=== PATIENT | male | born 1940 | race Caucasian/White ===

== ENCOUNTER 2016-03-10 11:16 | Inpatient (IN) | payer OTHER, MEDICARE ==
[2016-03-10 11:26] VITALS: BMI 31.3
[2016-03-10] MEDS ORDERED: SODIUM CHLORIDE 1,000 ML IV STA ×2 (11:54→16:51)
[2016-03-10] MEDS ORDERED: AZITHROMYCIN IVPB 500 MG in DEXTROSE 5%-WATER - 250 ML IVPB ONE (11:58)
--- NOTE | 2016-03-10 12:06 | PDOC ---
History of Present Illness - General Chief Complaint: Shortness of Breath Stated Complaint: TREMORS Time Seen by Provider: 03/10/16 11:42 History Source: Patient, Spouse - History of Present Illness Timing/Duration: reports: this morning Severity: reports: severe Associated Symptoms: reports: cough, shortness of breath. denies: fever/chills , headache, muscle aches, wheezing Past History - Past Medical History Allergies/Adverse Reactions: Allergies Allergy/AdvReac Type Severity Reaction Status Date / Time No Known Allergies Allergy Verified 03/10/16 11:21 Home Medications: Ambulatory Orders Clonazepam [Klonopin -] 0.5 mg PO DAILY 03/20/14 Insulin NPL/Insulin Lispro [Humalog Mix 75-25 Kwikpen] 30 unit SQ BID 03/20/14 Amlodipine Besylate [Norvasc -] 5 mg PO DAILY 08/16/15 Imipramine HCl [Tofranil -] 75 mg PO HS 08/16/15 Insulin Detemir [Levemir Flextouch] 20 unit SQ BID 08/16/15 Levothyroxine [Synthroid -] 50 mcg PO DAILY 08/16/15 Metformin HCl 500 mg PO BID 08/16/15 Cancer: No Diabetes: Yes HTN: Yes Psychiatric Problems: Yes (ANXIETY, PANIC ATTACKS.) Thyroid Disease: Yes - Surgical History Abdominal Surgery: Yes Cholecystectomy: Yes Orthopedic Surgery: No - Immunization History Immunization Up to Date: Yes - Psycho/Social/Smoking Cessation Hx Anxiety: No Suicidal Ideation: No Smoking History: Never smoked Have you smoked in the past 12 months: No If you are a former smoker, when did you quit?: 1985 Cigars Per Day: 0 Information on smoking cessation initiated: No Hx Alcohol Use: No Drug/Substance Use Hx: No Substance Use Type: None Hx Substance Use Treatment: No Review of Systems - Review of Systems Constitutional: No: Fever Respiratory: Yes: Shortness of Breath. No: Cough, Wheezing Cardiac (ROS): No: Chest Pain ABD/GI: No: Constipated, Diarrhea, Nausea, Vomiting : No: Dysuria Neurological: No: Headache, Dizziness *Physical Exam - Vital Signs Last Vital Signs Temp Pulse Resp BP Pulse Ox 97.8 F 144 H 30 H 126/85 85 L 03/10/16 11:20 03/10/16 11:20 03/10/16 11:20 03/10/16 11:20 03/10/16 11:20 - Physical Exam Comments: 03/10/16 12:06 Pt tremulous in ED General Appearance: Yes: Appropriately Dressed HEENT: positive: Normal Voice Neck: positive: Supple Respiratory/Chest: positive: Lungs Clear, Normal Breath Sounds. negative: Wheezing Cardiovascular: positive: Regular Rate, S1, S2 Gastrointestinal/Abdominal: positive: Soft. negative: Tender Integumentary: positive: Dry, Warm Neurologic: positive: Fully Oriented, Alert, Normal Mood/Affect Heart Score/ECG Review - ECG Intrepretation Comment:: 03/10/16 13:48 Sinus tachycardia @ 117 bpm ED Treatment Course - LABORATORY CBC & Chemistry Diagram: 03/10/16 11:56 03/10/16 12:00 - RADIOLOGY Radiology Studies Ordered: Category Date Time Status CHEST X-RAY PORTABLE* [RAD] Stat Radiology 03/10/16 11:56 Ordered Medical Decision Making - Medical Decision Making 03/10/16 12:02 75 yo M, h/o pulmonary fibrosis, PNA, HTN, IDDM, schizophrenia, anxiety, bib for tremors and sob. reports that pt awoke in usual state of health this am but that while in the car this am, began having tremors and requested to be taken to the ED. Pt c/o chills now, denies sob, CP, cough, fevers, abd pain, change in BM or dysuria. See exam R/o sepsis Pt hypoxic, tachypneic, febrile and tachy in ED +tremors Rest of exam unremarkable -NV -tylenol -IVF -abx covering presumed PNA -labs/cardoza-cx/cxr -anticipate admission 03/10/16 13:09 03/10/16 13:11 Wbc of 16 w/ possible basilar infiltrate on CXR. case d/w Dr Gardner and pt admitted 03/10/16 13:30 Lactate 5.8, IVF and abx in progress, will rpt. Elevated LFTs on labs, will get US at this time 03/10/16 13:31 03/10/16 16:47 Rpt lactate 3.8. US w/ no GB, c/w cholecystectomy which pt had denied earlier, + fatty liver 03/10/16 16:52 *DC/Admit/Observation/Transfer Diagnosis at time of Disposition: Pneumonia Qualifiers: Pneumonia type: due to unspecified organism Laterality: unspecified laterality Lung location: unspecified part of lung Qualified Code(s): J18.9 - Pneumonia, unspecified organism - Discharge Dispostion Condition at time of disposition: Fair Admit: Yes - Referrals
[2016-03-10] MEDS ORDERED: ACETAMINOPHEN 325 MG TABLET (FP) PO ONE (12:07)
[2016-03-10 12:19] LABS: VENOUS BLOOD GAS HCO3 25.7 meq/L (22-29); VENOUS PH 7.34 (7.31-7.41)
[2016-03-10 12:22] LABS: BASOPHIL 0.5 % (0-2.0); EOSINOPHIL 0.3 % (0-4.5); MCH 32.3 pg (25.7-33.7); MCHC 33.4 g/dl (32.0-35.9); MEAN CELL VOLUME 96.6 fl (80-96); MEAN PLT VOLUME 8.7 fl (7.5-11.1); NEUTROPHILS 86.3 % (42.8-82.8); PLATELET COUNT 319 K/MM3 (134-434); RDW 13.6 % (11.9-15.9); WHITE BLOOD COUNT 16.8 K/mm3 (4.0-10.0)
[2016-03-10 12:35] LABS: INR 1.05 (0.82-1.09); PROTHROMBIN TIME (PATIENT) 11.6 SEC (9.98-11.88)
[2016-03-10 13:05] LABS: ALBUMIN 3.9 g/dl (3.4-5.0); ANION GAP 13 (8-16); BILIRUBIN,TOTAL 2.4 mg/dL (0.2-1.0); CALCIUM 9.5 mg/dL (8.5-10.1); CO2 24 mmol/L (21-32); CREATININE 1.3 mg/dL (0.7-1.3); GLUCOSE,RANDOM 226 mg/dL (74-106); SGPT/ALT 179 U/L (12-78); TOT PROT 7.7 g/dl (6.4-8.2)
[2016-03-10 13:07] LABS: ALK PHOS 164 U/L (45-117); TROPONIN I < 0.02 ng/ml (0.00-0.05)
[2016-03-10 13:15] LABS: SGOT/AST 284 U/L (15-37)
[2016-03-10 13:18] LABS: URINE APPEARANCE CLEAR; URINE BILIRUBIN NEGATIVE (NEGATIVE); URINE BLOOD NEGATIVE (NEGATIVE); URINE COLOR YELLOW; URINE GLUCOSE (UA) 1+ (NEGATIVE); URINE KETONE NEGATIVE (NEGATIVE); URINE LEUK ESTERASE NEGATIVE (NEGATIVE); URINE NITRITE NEGATIVE (NEGATIVE); URINE PROTEIN NEGATIVE (NEGATIVE); URINE UROBILINOGEN 2.0 E.U/dl E.U./dl (0.2-1.0)
[2016-03-10] MEDS ORDERED: ACETAMINOPHEN 325 MG TABLET (FP) ONE (13:19)
[2016-03-10] MEDS ORDERED: CEFTRIAXONE 50 ML ONE (13:19)
--- NOTE | 2016-03-10 13:44 | PDOC ---
*Physical Exam - Vital Signs Last Vital Signs Temp Pulse Resp BP Pulse Ox 97.8 F 112 H 22 145/74 85 L 03/10/16 11:20 03/10/16 11:56 03/10/16 11:56 03/10/16 11:56 03/10/16 11:20 Heart Score/ECG Review #1 ECG reviewed & interpreted by me at: 13:43 03/10/16 13:43 Twelve-lead EKG was performed and reviewed by me. There is normal sinus rhythm with a tachycardiac rate of 117bpm. The axis is normal. The intervals are abnormal - pr:208ms, QRS:90ms, QTc:404ms. There are no ST elevations or depressions. T waves nml ED Treatment Course - LABORATORY CBC & Chemistry Diagram: 03/10/16 11:56 03/10/16 12:00 - ADDITIONAL ORDERS Additional order review: Laboratory Results 03/10/16 03/10/16 03/10/16 12:00 11:56 11:56 INR PTT (Actin FS) VBG pH POC VBG pCO2 POC VBG pO2 Sodium 138 Cancelled Potassium 5.0 Cancelled Chloride 101 Cancelled Carbon Dioxide 24 Cancelled Anion Gap 13 Cancelled BUN 18 Cancelled Creatinine 1.3 Cancelled Creat Clearance w eGFR 53.96 Cancelled Random Glucose 226 H D Cancelled Lactic Acid 5.881 H* Calcium 9.5 Cancelled Total Bilirubin 2.4 H D Cancelled AST 284 H D Cancelled ALT 179 H D Cancelled Alkaline Phosphatase 164 H D Cancelled Creatine Kinase 88 Cancelled Troponin I < 0.02 Cancelled B-Natriuretic Peptide 129.36 H Total Protein 7.7 Cancelled Albumin 3.9 Cancelled Urine Color Urine Appearance Urine pH Ur Specific [place] Urine Protein Urine Glucose (UA) Urine Ketones Urine Blood Urine Nitrite Urine Bilirubin Urine Urobilinogen Ur Leukocyte Esterase 03/10/16 03/10/16 03/10/16 11:56 11:56 11:56 INR 1.05 PTT (Actin FS) 31.0 VBG pH 7.34 D POC VBG pCO2 48.8 D POC VBG pO2 13.7 L* D Sodium Potassium Chloride Carbon Dioxide Anion Gap BUN Creatinine Creat Clearance w eGFR Random Glucose Lactic Acid Calcium Total Bilirubin AST ALT Alkaline Phosphatase Creatine Kinase Troponin I B-Natriuretic Peptide Total Protein Albumin Urine Color Yellow Urine Appearance Clear Urine pH 6.0 Ur Specific [place] 1.013 Urine Protein Negative Urine Glucose (UA) 1+ H Urine Ketones Negative Urine Blood Negative Urine Nitrite Negative Urine Bilirubin Negative Urine Urobilinogen 2.0 e.u/dl Ur Leukocyte Esterase Negative 03/10/16 11:56 RBC 4.50 MCV 96.6 H MCHC 33.4 RDW 13.6 MPV 8.7 Neutrophils % 86.3 H Lymphocytes % 10.7 D Monocytes % 2.2 L Eosinophils % 0.3 D Basophils % 0.5 - Medications Given in the ED: ED Medications Discontinued Medications Generic Name Dose Route Start Last Admin Trade Name Freq PRN Reason Stop Dose Admin Acetaminophen 650 mg 03/10/16 12:07 03/10/16 13:16 Tylenol - PO 03/10/16 12:08 650 mg ONCE ONE Administration Ceftriaxone Sodium 1 mg 03/10/16 11:57 03/10/16 13:16 Rocephin - IVPUSH 03/10/16 11:58 1 mg ONCE ONE Administration Sodium Chloride 1,000 mls @ 1,000 mls/hr 03/10/16 11:54 03/10/16 13:16 Normal Saline - IV 03/10/16 12:53 1,000 mls/hr ASDIR STA Administration Medical Decision Making - Medical Decision Making 03/10/16 13:42 Pt seen by Midlevel Provider under my direct supervision Pt interviewed and examined Ancillary studies reviewed I agree with plan as outlined by Midlevel Provider 03/10/16 13:44 *DC/Admit/Observation/Transfer Diagnosis at time of Disposition: Pneumonia Qualifiers: Pneumonia type: due to unspecified organism Laterality: unspecified laterality Lung location: unspecified part of lung Qualified Code(s): J18.9 - Pneumonia, unspecified organism - Discharge Dispostion Condition at time of disposition: Fair
[2016-03-10] MEDS ORDERED: AZITHROMYCIN IVPB 250 ML IVPB ONE (14:57)
--- NOTE | 2016-03-10 16:38 | EKG ---
Test Reason : Blood Pressure : / mmHG Vent. Rate : 117 BPM Atrial Rate : 117 BPM P-R Int : 208 ms QRS Dur : 090 ms QT Int : 290 ms P-R-T Axes : 027 009 018 degrees QTc Int : 404 ms SINUS TACHYCARDIA WITH 1ST DEGREE A-V BLOCK POSSIBLE ATRIAL TACHYCARDIA OTHERWISE NORMAL ECG WHEN COMPARED WITH ECG OF 28-NOV-2015 15:16, NO SIGNIFICANT CHANGE WAS FOUND Confirmed by MD CORDELL, CAMERON ([id number]) on 03/10/2016 4:37:40 PM Referred By: Overread By: CAMERON LANDA MD
[2016-03-10] MEDS: IMIPRAMINE HCL 50 MG PO SCH (22:19)
[2016-03-10] MEDS: clonazePAM 0.5 MG TABLET PO SCH (22:20)
[2016-03-11] MEDS: LEVOTHYROXINE NA 50 MCG TABLET (FP) PO SCH (06:50)
[2016-03-11] MEDS ORDERED: INSULIN (NOVOLOG) ASPART 100 UNITS/ML 10ML VIAL ONE ×2 (06:53→17:08)
[2016-03-11] MEDS: INSULIN SLIDING SCALE (NOVOLOG) 1 VIAL SQ SCH ×2 (06:54→17:21)
[2016-03-11 07:20] LABS: BASOPHIL 0.4 % (0-2.0); EOSINOPHIL 1.1 % (0-4.5); MCHC 34.4 g/dl (32.0-35.9); MEAN CELL VOLUME 95.8 fl (80-96); MEAN PLT VOLUME 8.9 fl (7.5-11.1); NEUTROPHILS 72.7 % (42.8-82.8); PLATELET COUNT 228 K/MM3 (134-434); RDW 13.4 % (11.9-15.9); WHITE BLOOD COUNT 12.9 K/mm3 (4.0-10.0)
[2016-03-11 07:52] LABS: ANION GAP 8 (8-16); CALCIUM 8.2 mg/dL (8.5-10.1); CO2 26 mmol/L (21-32); GLUCOSE,RANDOM 154 mg/dL (74-106); SGOT/AST 132 U/L (15-37); SGPT/ALT 169 U/L (12-78)
[2016-03-11 08:01] LABS: ALK PHOS 116 U/L (45-117); BILIRUBIN,TOTAL 6.6 mg/dL (0.2-1.0); THYROID STIMULATING HORMONE 2.42 uIU/ml (0.358-3.74); TOT PROT 5.9 g/dl (6.4-8.2)
--- NOTE | 2016-03-11 08:55 | PN ---
Progress Note, Physician Chief Complaint: ID Full note dictated and discussed with Dr Barajas Brought with SOB hypoxemia says he had abd pain better today No fever but now with GNB in the blood cultures already ! - Current Medication List Current Medications: Active Medications Amlodipine Besylate (Norvasc -) 5 mg PO DAILY [facility] Clonazepam (Klonopin -) 0.5 mg PO HS [facility] Last Admin: 03/10/16 22:20 Dose: 0.5 mg Levofloxacin (Levaquin 500 Mg Premixed Ivpb -) 100 mls @ 100 mls/hr IVPB DAILY [facility] Imipramine HCl (Tofranil -) 75 mg PO HS [facility] Last Admin: 03/10/16 22:19 Dose: 75 mg Insulin Aspart (Novolog Vial Sliding Scale -) 1 vial SQ BIDAC [facility] PRN Reason: Protocol Last Admin: 03/11/16 06:54 Dose: 6 units Levothyroxine Sodium (Synthroid -) 50 mcg PO DAILY@0700 [facility] Last Admin: 03/11/16 06:50 Dose: 50 mcg - Objective Vital Signs: Vital Signs Temperature 98.5 F 03/11/16 05:30 Pulse Rate 83 03/11/16 05:30 Respiratory Rate 18 03/11/16 05:30 Blood Pressure 99/49 03/11/16 05:30 O2 Sat by Pulse Oximetry (%) 96 03/10/16 21:00 Constitutional: Yes: Mild Distress HENT: Yes: WNL, Atraumatic Neck: Yes: WNL, Supple Cardiovascular: Yes: Regular Rate and Rhythm, S1, S2. No: Murmur Respiratory: Yes: Rales, Rhonchi Gastrointestinal: Yes: Soft. No: Splenomegaly, Tenderness, Tenderness, Rebound Edema: Yes Labs: CBC, BMP 03/11/16 05:50 03/11/16 05:50 INR, PTT INR 1.05 (0.82-1.09) 03/10/16 11:56 Assessment/Plan Microbiology 03/10/16 11:56 Blood - Peripheral Venous Blood Culture - Preliminary Pending Organism 03/10/16 11:56 Blood - Peripheral Venous Blood Culture - Preliminary Pending Organism Laboratory Tests 03/10/16 03/10/16 03/11/16 11:56 11:56 05:50 WBC 16.8 H 12.9 H Hgb 14.5 12.4 D Plt Count 319 228 D Neutrophils % 86.3 H Lymphocytes % 10.7 D Monocytes % 2.2 L Eosinophils % 0.3 D Basophils % 0.5 BUN Creatinine Creat Clearance w eGFR Lactic Acid 5.881 H* Total Bilirubin AST ALT Alkaline Phosphatase 03/11/16 05:50 WBC Hgb Plt Count Neutrophils % Lymphocytes % Monocytes % Eosinophils % Basophils % BUN 18 Creatinine 1.0 D Creat Clearance w eGFR > 60 Lactic Acid Total Bilirubin 6.6 H D AST 132 H D ALT 169 H Alkaline Phosphatase 116 D Assessment Sepsis syndrome Gram negative ale bacteremia biliary source Component of Congestive heart failure Recurrent cholangitis Plan Pending blood cultures would treat for biliary tract source with Zosyn GI to reconsult ECHO Ronald Townsend MD
--- NOTE | 2016-03-11 08:59 | PN ---
Progress Note, Physician - Current Medication List Current Medications: Active Medications Amlodipine Besylate (Norvasc -) 5 mg PO DAILY [facility] Clonazepam (Klonopin -) 0.5 mg PO HS [facility] Last Admin: 03/10/16 22:20 Dose: 0.5 mg Piperacillin Sod/Tazobactam (Sod 4.5 gm/ Dextrose) 100 mls @ 200 mls/hr IVPB Q8H-IV [facility] Imipramine HCl (Tofranil -) 75 mg PO HS [facility] Last Admin: 03/10/16 22:19 Dose: 75 mg Insulin Aspart (Novolog Vial Sliding Scale -) 1 vial SQ BIDAC [facility] PRN Reason: Protocol Last Admin: 03/11/16 06:54 Dose: 6 units Levothyroxine Sodium (Synthroid -) 50 mcg PO DAILY@0700 [facility] Last Admin: 03/11/16 06:50 Dose: 50 mcg - Objective Vital Signs: Vital Signs Temperature 98.5 F 03/11/16 05:30 Pulse Rate 83 03/11/16 05:30 Respiratory Rate 18 03/11/16 05:30 Blood Pressure 99/49 03/11/16 05:30 O2 Sat by Pulse Oximetry (%) 96 03/10/16 21:00 Labs: CBC, BMP 03/11/16 05:50 03/11/16 05:50 INR, PTT INR 1.05 (0.82-1.09) 03/10/16 11:56 Problem List - Problems (1) Ascending cholangitis Code(s): K83.0 - CHOLANGITIS (2) Gram-negative bacteremia Code(s): R78.81 - BACTEREMIA (3) Sepsis Code(s): A41.9 - SEPSIS, UNSPECIFIED ORGANISM
[2016-03-11] MEDS: amLODIPine BESYLATE 5 MG TABLET (FP) PO SCH (10:58)
[2016-03-11 11:49] LABS: C-REACTIVE PROTEIN 8.5 MG/DL (0.00-0.3)
[2016-03-11] MEDS: PIPERACILLIN/TAZOB 4.5 GM 100 ML IVPB SCH ×3 (14:51→18:14)
--- NOTE | 2016-03-11 16:50 | HP ---
Admitting History and Physical - Primary Care Physician PCP: Eduardo Galdamez D - Admission Chief Complaint: Shaking chills. RUQ pain History of Present Illness: 75 y/o male who on the day of admission felt shaking chill followed by RUQ pain. Denies N/V , fever. Came to ED and w/u showed leukocytosis of 16,000 , with elevated LFTs. He is known to have interstitial lung disease and the Chest Xray showed lower lobe infiltrates but patient did not have any cough or sputum. In the past he has been admitted several times with bacteremia due to ascending cholangitis as his CBD is implanted in the duodenum after cholecystectomy and injury to CBD. History Source: Patient, Family Member Limitations to Obtaining History: No Limitations - Past Medical History Cardiovascular: Yes: HTN. No: Other Pulmonary: Yes: Pneumonia, Pulmonary Fibrosis Gastrointestinal: Yes: Gastritis, Other (Several episodes ascending cholangitis with septicemia. Had laceration of CBD during cholecystectomy and it was implanted in the duodenum) Hepatobiliary: Yes: Other (fatty liver) Psych: Yes: Anxiety, Depression. No: Bipolar, Panic, Psychosis, Schizophrenia, Other Endocrine: Yes: Diabetes Mellitus, Hypothyroidism. No: Macario's Disease, [place]'s Disease, Diabetes Insipidus, Hyperparathyroidism, Hyperthyroidism, Osteopenia, SIADH, Other - Past Surgical History Past Surgical History: Yes: Cholecystectomy - Smoking History Smoking history: Never smoked Have you smoked in the past 12 months: No If you are a former smoker, when did you quit?: 1985 - Alcohol/Substance Use Hx Alcohol Use: No History of Substance Use: reports: None - Social History History of Recent Travel: No Home Medications - Allergies Allergies/Adverse Reactions: Allergies Allergy/AdvReac Type Severity Reaction Status Date / Time No Known Allergies Allergy Verified 03/10/16 11:21 - Home Medications Home Medications: Ambulatory Orders Clonazepam [Klonopin -] 0.5 mg PO DAILY 03/20/14 Insulin NPL/Insulin Lispro [Humalog Mix 75-25 Kwikpen] 30 unit SQ BID 03/20/14 Amlodipine Besylate [Norvasc -] 5 mg PO DAILY 08/16/15 Imipramine HCl [Tofranil -] 75 mg PO HS 08/16/15 Insulin Detemir [Levemir Flextouch] 20 unit SQ BID 08/16/15 Levothyroxine [Synthroid -] 50 mcg PO DAILY 08/16/15 Metformin HCl 500 mg PO BID 08/16/15 Review of Systems - Review of Systems Constitutional: reports: Chills Eyes: reports: No Symptoms HENT: reports: No Symptoms Neck: reports: No Symptoms Cardiovascular: denies: No Symptoms, Chest Pain, Edema, Palpitations, Shortness of Breath, Other Respiratory: denies: No Symptoms, Cough, Exercise Intolerance, Hemoptysis, Orthopnea, PND, Snoring, SOB, SOB on Exertion, Wheezing, Other Gastrointestinal: reports: Abdominal Pain Genitourinary: reports: No Symptoms Breasts: reports: No Symptoms Reported Musculoskeletal: reports: No Symptoms Integumentary: reports: No Symptoms Endocrine: reports: No Symptoms Hematology/Lymphatic: reports: No Symptoms Psychiatric: reports: Anxiety, Depression Physical Examination Vital Signs: Vital Signs Temperature 97.7 F 03/11/16 15:13 Pulse Rate 89 03/11/16 15:13 Respiratory Rate 18 03/11/16 15:13 Blood Pressure 122/77 03/11/16 15:13 O2 Sat by Pulse Oximetry (%) 97 03/11/16 09:00 Constitutional: Yes: No Distress, Calm, Obese Eyes: Yes: Conjunctiva Clear, EOM Intact HENT: Yes: Atraumatic, Normocephalic Neck: Yes: Supple, Trachea Midline Cardiovascular: Yes: Regular Rate and Rhythm, S1, S2 Respiratory: Yes: WNL, Regular, CTA Bilaterally Gastrointestinal: Yes: WNL, Normal Bowel Sounds, Soft Labs: CBC, BMP 03/11/16 05:50 03/11/16 05:50 Imaging - Results Chest X-ray: Report Reviewed, Image Reviewed Problem List - Problems (1) Diabetes Assessment/Plan: Diabetes under good control with insulin Code(s): E11.9 - TYPE 2 DIABETES MELLITUS WITHOUT COMPLICATIONS Qualifiers: Diabetes mellitus supervisor intermediates insulin use: with supervisor intermediates use (2) Elevated LFTs Assessment/Plan: Abnormal elevation of LFTs due to ascending cholangitis Code(s): R79.89 - OTHER SPECIFIED ABNORMAL FINDINGS OF BLOOD CHEMISTRY (3) Obesity Code(s): E66.9 - OBESITY, UNSPECIFIED (4) Pneumonia Assessment/Plan: Xray report shows possibility of new infiltrates and possible Pneumonia Code(s): J18.9 - PNEUMONIA, UNSPECIFIED ORGANISM Qualifiers: Pneumonia type: due to unspecified organism Laterality: unspecified laterality Lung location: unspecified part of lung Qualified Code(s) : J18.9 - Pneumonia, unspecified organism (5) Schizophrenia in remission Assessment/Plan: In remission with imipramine and Clonazepam Code(s): F20.9 - SCHIZOPHRENIA, UNSPECIFIED Assessment/Plan Was treated with Rocephin and Zithromax and remained afebrile and leukocytosis improved to 12,000. Blood cult are positive with gram+ bacteria, consulted who started pt on Zosyn
[2016-03-11] MEDS ORDERED: LEVOFLOXACIN 500 MG IVPB 100 ML IVPB SCH (20:10)
[2016-03-11] MEDS ORDERED: PT OWN MED DRAWER 7, Y5N ONE (21:01)
[2016-03-11] MEDS: clonazePAM 0.5 MG TABLET PO SCH (21:22)
[2016-03-11] MEDS: IMIPRAMINE HCL 50 MG PO SCH (21:23)
[2016-03-12] MEDS: PIPERACILLIN/TAZOB 4.5 GM 100 ML IVPB SCH ×3 (02:02→17:26)
[2016-03-12] MEDS ORDERED: INSULIN (NOVOLOG) ASPART 100 UNITS/ML 10ML VIAL ONE ×2 (06:00→17:19)
[2016-03-12] MEDS: INSULIN SLIDING SCALE (NOVOLOG) 1 VIAL SQ SCH ×2 (06:02→17:26)
[2016-03-12] MEDS: LEVOTHYROXINE NA 50 MCG TABLET (FP) PO SCH (06:02)
[2016-03-12] MEDS: amLODIPine BESYLATE 5 MG TABLET (FP) PO SCH (09:38)
--- NOTE | 2016-03-12 10:01 | PN ---
Progress Note, Physician Chief Complaint: Looks feel better Afebrile Zosyn - Current Medication List Current Medications: Active Medications Amlodipine Besylate (Norvasc -) 5 mg PO DAILY [facility] Last Admin: 03/12/16 09:38 Dose: 5 mg Clonazepam (Klonopin -) 0.5 mg PO HS [facility] Last Admin: 03/11/16 21:22 Dose: 0.5 mg Piperacillin Sod/Tazobactam Sod (Zosyn 4.5gm Ivpb (Pre-Docked)) 100 mls @ 200 mls/hr IVPB Q8H-IV [facility] Last Admin: 03/12/16 09:38 Dose: 200 mls/hr Imipramine HCl (Tofranil -) 75 mg PO [facility] Insulin Aspart (Novolog Vial Sliding Scale -) 1 vial SQ BIDAC [facility] PRN Reason: Protocol Last Admin: 03/12/16 06:02 Dose: 6 units Levothyroxine Sodium (Synthroid -) 50 mcg PO DAILY@0700 [facility] Last Admin: 03/12/16 06:02 Dose: 50 mcg - Objective Vital Signs: Vital Signs Temperature 98.0 F 03/12/16 06:00 Pulse Rate 85 03/12/16 06:00 Respiratory Rate 20 03/12/16 06:00 Blood Pressure 131/70 03/12/16 06:00 O2 Sat by Pulse Oximetry (%) 97 03/11/16 21:00 Constitutional: Yes: Well Nourished, No Distress HENT: Yes: WNL, Atraumatic Neck: Yes: WNL, Supple Cardiovascular: Yes: Regular Rate and Rhythm, S1, S2 Respiratory: Yes: Rales Gastrointestinal: Yes: WNL, Normal Bowel Sounds, Soft. No: Tenderness Edema: Yes Labs: CBC, BMP 03/11/16 05:50 03/11/16 05:50 INR, PTT INR 1.05 (0.82-1.09) 03/10/16 11:56 Problem List - Problems (1) Ascending cholangitis Code(s): K83.0 - CHOLANGITIS (2) Gram-negative bacteremia Code(s): R78.81 - BACTEREMIA (3) Sepsis Code(s): A41.9 - SEPSIS, UNSPECIFIED ORGANISM Assessment/Plan Microbiology 03/10/16 12:40 Urine - Urine Clean Catch Urine Culture - Final NO GROWTH OBTAINED 03/10/16 11:56 Blood - Peripheral Venous Blood Culture - Preliminary Lactose Fermenting Neg Bacilli 03/10/16 11:56 Blood - Peripheral Venous Blood Culture - Preliminary Gram Negative Eddi Laboratory Tests 03/10/16 03/11/16 03/11/16 11:56 05:50 05:50 WBC 16.8 H 12.9 H Plt Count 228 D BUN 18 Creatinine 1.0 D Creat Clearance w eGFR > 60 Total Bilirubin 6.6 H D Alkaline Phosphatase 116 D Assessment Cholangitis Pneumonia vs CHF Grade 3 systolic murmum Elevated LFTs Plan Continue Zosyn as ordered ECHO pending Final c/s pending CT non contrast lung MRCP and GI evaluation Repeat LFT Cary ZAMORANO
[2016-03-12] MEDS ORDERED: PT OWN MED DRAWER 7, Y5N ONE (20:42)
--- NOTE | 2016-03-12 20:44 | PN ---
Progress Note, Physician History of Present Illness: Denies any abd. pain. No N/V. Ultrassound of liver is negative and shows only fatty liver. - Current Medication List Current Medications: Active Medications Amlodipine Besylate (Norvasc -) 5 mg PO DAILY [facility] Last Admin: 03/12/16 09:38 Dose: 5 mg Clonazepam (Klonopin -) 0.5 mg PO HS [facility] Last Admin: 03/11/16 21:22 Dose: 0.5 mg Piperacillin Sod/Tazobactam Sod (Zosyn 4.5gm Ivpb (Pre-Docked)) 100 mls @ 200 mls/hr IVPB Q8H-IV [facility] Last Admin: 03/12/16 17:26 Dose: 200 mls/hr Imipramine HCl (Tofranil -) 75 mg PO HS [facility] Insulin Aspart (Novolog Vial Sliding Scale -) 1 vial SQ BIDAC [facility] PRN Reason: Protocol Last Admin: 03/12/16 17:26 Dose: 10 units Levothyroxine Sodium (Synthroid -) 50 mcg PO DAILY@0700 [facility] Last Admin: 03/12/16 06:02 Dose: 50 mcg - Objective Vital Signs: Vital Signs Temperature 97.9 F 03/12/16 18:00 Pulse Rate 81 03/12/16 18:00 Respiratory Rate 18 03/12/16 18:00 Blood Pressure 118/60 03/12/16 18:00 O2 Sat by Pulse Oximetry (%) 97 03/11/16 21:00 Constitutional: Yes: Well Nourished, No Distress, Calm Eyes: Yes: WNL, Conjunctiva Clear, EOM Intact HENT: Yes: WNL Neck: Yes: Supple, Trachea Midline Cardiovascular: Yes: Regular Rate and Rhythm, S1, S2 Respiratory: Yes: Regular, CTA Bilaterally Gastrointestinal: Yes: Normal Bowel Sounds, Soft Genitourinary: Yes: WNL Musculoskeletal: Yes: WNL Extremities: Yes: WNL Edema: No Peripheral Pulses WNL: Yes Integumentary: Yes: WNL Neurological: Yes: Alert, Oriented, Cran Nerves II-XII Intact ...Motor Strength: WNL Psychiatric: Yes: Alert, Oriented Labs: CBC, BMP 03/11/16 05:50 03/11/16 05:50 INR, PTT INR 1.05 (0.82-1.09) 03/10/16 11:56 - ....Imaging X-ray: Report Reviewed, Image Reviewed Ultrasound: Report Reviewed EKG: Report Reviewed Problem List - Problems (1) Diabetes Code(s): E11.9 - TYPE 2 DIABETES MELLITUS WITHOUT COMPLICATIONS Qualifiers: Diabetes mellitus terminal superintendent insulin use: with correction use (2) Elevated LFTs Assessment/Plan: LFTs are improving as well as leukocytosis with Zosyn IV. Code(s): R79.89 - OTHER SPECIFIED ABNORMAL FINDINGS OF BLOOD CHEMISTRY (3) Obesity Code(s): E66.9 - OBESITY, UNSPECIFIED (4) Pneumonia Assessment/Plan: Chest Xray findings are due to Interstitial lung disease Code(s): J18.9 - PNEUMONIA, UNSPECIFIED ORGANISM Qualifiers: Pneumonia type: due to unspecified organism Laterality: unspecified laterality Lung location: unspecified part of lung Qualified Code(s) : J18.9 - Pneumonia, unspecified organism (5) Schizophrenia in remission Code(s): F20.9 - SCHIZOPHRENIA, UNSPECIFIED (6) Gram-negative bacteremia Assessment/Plan: Organism isolated so far is gram neg. lactose fermenting Code(s): R78.81 - BACTEREMIA Assessment/Plan Continue IV Zosyn. Echocardiogram was ordered
[2016-03-12] MEDS: clonazePAM 0.5 MG TABLET PO SCH (21:15)
[2016-03-12] MEDS: IMIPRAMINE HCL 25 MG TABLET PO SCH (21:15)
[2016-03-13] MEDS: PIPERACILLIN/TAZOB 4.5 GM 100 ML IVPB SCH ×2 (02:01→09:27)
[2016-03-13] MEDS ORDERED: INSULIN (NOVOLOG) ASPART 100 UNITS/ML 10ML VIAL ONE ×2 (06:00→16:47)
[2016-03-13] MEDS: INSULIN SLIDING SCALE (NOVOLOG) 1 VIAL SQ SCH ×2 (06:22→16:54)
[2016-03-13] MEDS: LEVOTHYROXINE NA 50 MCG TABLET (FP) PO SCH (06:22)
[2016-03-13 08:47] LABS: BASOPHIL 0.7 % (0-2.0); EOSINOPHIL 5.4 % (0-4.5); MCH 32.3 pg (25.7-33.7); MCHC 33.7 g/dl (32.0-35.9); MEAN CELL VOLUME 95.8 fl (80-96); MEAN PLT VOLUME 9.1 fl (7.5-11.1); NEUTROPHILS 56.3 % (42.8-82.8); PLATELET COUNT 280 K/MM3 (134-434); RDW 13.9 % (11.9-15.9); WHITE BLOOD COUNT 11.2 K/mm3 (4.0-10.0)
[2016-03-13] MEDS ORDERED: ACETAMINOPHEN 325 MG TABLET (FP) ONE (08:52)
[2016-03-13] MEDS ORDERED: ACETAMINOPHEN 325 MG TABLET (FP) PO PRN (08:57)
[2016-03-13] MEDS: amLODIPine BESYLATE 5 MG TABLET (FP) PO SCH (09:27)
[2016-03-13 09:35] LABS: ALBUMIN 3.8 g/dl (3.4-5.0); BILIRUBIN,TOTAL 2.6 mg/dL (0.2-1.0); CREATININE 1.2 mg/dL (0.7-1.3); TOT PROT 7.3 g/dl (6.4-8.2)
--- NOTE | 2016-03-13 10:18 | PN ---
Progress Note, Physician Chief Complaint: Febrile today 101 ! On Zosyn Denies abd pain - Current Medication List Current Medications: Active Medications Acetaminophen (Tylenol -) 325 mg PO Q4H PRN PRN Reason: FEVER OR PAIN Last Admin: 03/13/16 09:00 Dose: 325 mg Amlodipine Besylate (Norvasc -) 5 mg PO DAILY [facility] Last Admin: 03/13/16 09:27 Dose: 5 mg Clonazepam (Klonopin -) 0.5 mg PO HS [facility] Last Admin: 03/12/16 21:15 Dose: 0.5 mg Piperacillin Sod/Tazobactam Sod (Zosyn 4.5gm Ivpb (Pre-Docked)) 100 mls @ 200 mls/hr IVPB Q8H-IV [facility] Last Admin: 03/13/16 09:27 Dose: 200 mls/hr Imipramine HCl (Tofranil -) 75 mg PO HS [facility] Last Admin: 03/12/16 21:15 Dose: 75 mg Insulin Aspart (Novolog Vial Sliding Scale -) 1 vial SQ BIDAC [facility] PRN Reason: Protocol Last Admin: 03/13/16 06:22 Dose: 6 units Levothyroxine Sodium (Synthroid -) 50 mcg PO DAILY@0700 [facility] Last Admin: 03/13/16 06:22 Dose: 50 mcg - Objective Vital Signs: Vital Signs Temperature 98.0 F 03/13/16 02:00 Pulse Rate 86 03/13/16 02:00 Respiratory Rate 20 03/13/16 02:00 Blood Pressure 122/71 03/13/16 02:00 O2 Sat by Pulse Oximetry (%) 96 03/12/16 21:00 Constitutional: Yes: Other (Ill appearing) HENT: Yes: WNL, Atraumatic Neck: Yes: WNL, Supple Cardiovascular: Yes: Regular Rate and Rhythm, Murmur, S1, S2 Respiratory: Yes: WNL, Regular, CTA Bilaterally Gastrointestinal: Yes: WNL, Normal Bowel Sounds Edema: No Labs: CBC, BMP 03/13/16 07:20 03/13/16 09:15 INR, PTT INR 1.05 (0.82-1.09) 03/10/16 11:56 Problem List - Problems (1) Ascending cholangitis Code(s): K83.0 - CHOLANGITIS (2) Gram-negative bacteremia Code(s): R78.81 - BACTEREMIA (3) Sepsis Code(s): A41.9 - SEPSIS, UNSPECIFIED ORGANISM Assessment/Plan Laboratory Tests 03/10/16 03/10/16 03/10/16 11:56 12:00 15:40 WBC Hgb Hct Plt Count BUN Creatinine Creat Clearance w eGFR Lactic Acid 5.881 H* 3.824 H* Total Bilirubin 2.4 H D AST 284 H D ALT 179 H D Alkaline Phosphatase 164 H D 03/11/16 03/13/16 03/13/16 05:50 07:20 09:15 WBC 11.2 H Hgb 14.0 D Hct 41.5 D Plt Count 280 D BUN 19 H Creatinine 1.2 Creat Clearance w eGFR 59.18 Lactic Acid Total Bilirubin 6.6 H D AST 132 H D ALT 169 H Alkaline Phosphatase 116 D 150 H D Microbiology 03/10/16 12:40 Urine - Urine Clean Catch Urine Culture - Final NO GROWTH OBTAINED 03/10/16 11:56 Blood - Peripheral Venous Blood Culture - Final Escherichia Coli 03/10/16 11:56 Blood - Peripheral Venous Blood Culture - Final Escherichia Coli Assessment Interesting case in which patient presented couph and SOB NO mention of abd pain in the ER LFTs noted to be elevated Bili of 6 ! Patient has no abdominal findings but has E Coli in the blood cultures. HIS ultrasound shows fatty liver but no dilatation of CBD and he no abd pain on exam. CT of the chest shows estensive infiltrate. Raises the question of a primary E Coli pneumonia with worsening liver enzymes based on a fatty liver. HIs LFTs improving but still elevated and bilary source of infection still needs to be considered. Plan Get GI to see today Legionella serology Repeat blood culture now for fever recurrent ! CRP ECHO ordered for murmur E Coli sensitive to everything does not warrant Zosyn Ceftriaxone 2 grs instead REX Townsend MD
[2016-03-13 11:04] LABS: C-REACTIVE PROTEIN 6.6 MG/DL (0.00-0.3)
[2016-03-13] MEDS: CEFTRIAXONE 100 ML IVPB SCH (12:14)
--- NOTE | 2016-03-13 16:13 | CONSULT ---
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 No: Other Pulmonary: Yes: Pneumonia, Pulmonary Fibrosis Gastrointestinal: Yes: Gastritis, Other (COMPLICATIONS FROM GB SURGERY (BILE DUCT INJURY) PROBABLE BILE DUCT SURGERY) Hepatobiliary: Yes: Other (fatty liver, BACK CIRRHOSIS) Psych: Yes: Anxiety, Depression. No: Bipolar, Panic, Psychosis, Schizophrenia, Other Endocrine: Yes: Diabetes Mellitus, Hypothyroidism. No: Sherburne's Disease, Siri's Disease, Diabetes Insipidus, Hyperparathyroidism, Hyperthyroidism, Osteopenia, SIADH, Other - Past Surgical History Past Surgical History: Yes: Cholecystectomy Additional Surgical History: ABOVE, EGD REVEALED ESOPHAGITIS AND HIATAL HERNIA, COLONOSCOPY NEGATIVE FOR MALIGNANCY - Alcohol/Substance Use Hx Alcohol Use: No History of Substance Use: reports: None - Smoking History Smoking history: Never smoked Have you smoked in the past 12 months: No If you are a former smoker, when did you quit?: 1985 - Social History History of Recent Travel: No Home Medications - Allergies Allergies/Adverse Reactions: Allergies Allergy/AdvReac Type Severity Reaction Status Date / Time No Known Allergies Allergy Verified 03/10/16 11:21 - Home Medications Home Medications: Ambulatory Orders Clonazepam [Klonopin -] 0.5 mg PO DAILY 03/20/14 Insulin NPL/Insulin Lispro [Humalog Mix 75-25 Kwikpen] 30 unit SQ BID 03/20/14 Amlodipine Besylate [Norvasc -] 5 mg PO DAILY 08/16/15 Imipramine HCl [Tofranil -] 75 mg PO HS 08/16/15 Insulin Detemir [Levemir Flextouch] 20 unit SQ BID 08/16/15 Levothyroxine [Synthroid -] 50 mcg PO DAILY 08/16/15 Metformin HCl 500 mg PO BID 08/16/15 Family Disease History - Family Disease History Family History: Unable to Obtain Review of Systems - Review of Systems Constitutional: reports: Chills, Fever Eyes: reports: No Symptoms HENT: reports: No Symptoms Neck: reports: No Symptoms Cardiovascular: reports: No Symptoms Respiratory: reports: No Symptoms Gastrointestinal: reports: Indigestion Genitourinary: reports: No Symptoms Musculoskeletal: reports: No Symptoms Integumentary: reports: No Symptoms Neurological: reports: No Symptoms Endocrine: reports: No Symptoms Physical Exam-GI Vital Signs: Vital Signs Temperature 97.8 F 03/13/16 14:51 Pulse Rate 82 03/13/16 14:51 Respiratory Rate 22 03/13/16 14:51 Blood Pressure 121/60 03/13/16 14:51 O2 Sat by Pulse Oximetry (%) 97 03/13/16 09:00 Constitutional: Yes: No Distress, Calm Eyes: Yes: Other (VERY MILD SCLERAL ICTERUS) Neck: Yes: Supple Cardiovascular: Yes: Regular Rate and Rhythm Respiratory: Yes: Regular Gastrointestinal Inspection: Yes: Scars ...Auscultate: Yes: Normoactive Bowel Sounds ...Palpate: Yes: Soft Extremities: Yes: WNL Labs: CBC, BMP 03/13/16 07:20 03/13/16 09:15 INR, PTT INR 1.05 (0.82-1.09) 03/10/16 11:56 Laboratory Tests 03/10/16 03/13/16 03/13/16 11:56 07:20 09:15 WBC 11.2 H RBC 4.33 Hgb 14.0 D Hct 41.5 D MCV 95.8 MCHC 33.7 RDW 13.9 Plt Count 280 D MPV 9.1 Neutrophils % 56.3 D Lymphocytes % 30.9 D Monocytes % 6.7 Eosinophils % 5.4 H D Basophils % 0.7 INR 1.05 Total Bilirubin 2.6 H D AST 67 H D ALT 139 H Alkaline Phosphatase 150 H D C-Reactive Protein 6.6 H D Problem List - Problems (1) Gram-negative bacteremia Assessment/Plan: SUSPECT THAT THE GM NEG (E COLI) SOURCE IS FORM BILIARY TREE. THERE WAS SUSPECTED STRICTURE IN 2014 SEEN ON MRI BUT PER CHART THERE WAS NO ERCP PERFORMED. HE DOES NOT KNOW IF HE HAD ERCP AFTER THAT. WILL ORDER MRCP WITH SOME PREMRI SEDATION WITH VALIUM. IF STRICTURE SUSPECTED PRIOR SURGICAL ALTERATION OF ANATOMY MAY REQUIRE ERCP AT ANOTHER LOCATION. IN THE MEANTIME CONTINUE ABX TO TRY TO CLEAR INFECTION. 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
--- NOTE | 2016-03-13 21:15 | PN ---
Progress Note, Physician History of Present Illness: Continues to be afebrile. No N/V. Cholecystectomy was done in 1989 with injury to CBD. Since then has had many episodes of Bacteremia with ECOLI. During last episode did EGD with duodenoscopy and could not find the opening of the implanted CBD. - Current Medication List Current Medications: Active Medications Acetaminophen (Tylenol -) 325 mg PO Q4H PRN PRN Reason: FEVER OR PAIN Last Admin: 03/13/16 09:00 Dose: 325 mg Amlodipine Besylate (Norvasc -) 5 mg PO DAILY [facility] Last Admin: 03/13/16 09:27 Dose: 5 mg Clonazepam (Klonopin -) 0.5 mg PO HS [facility] Last Admin: 03/12/16 21:15 Dose: 0.5 mg Diazepam (Valium -) 5 mg PO ONCE ONE Stop: 03/13/16 16:25 Ceftriaxone Sodium (Rocephin 2gm Ivpb (Pre-Docked)) 100 mls @ 200 mls/hr IVPB DAILY [facility] Last Admin: 03/13/16 12:14 Dose: 200 mls/hr Imipramine HCl (Tofranil -) 75 mg PO HS [facility] Last Admin: 03/12/16 21:15 Dose: 75 mg Insulin Aspart (Novolog Vial Sliding Scale -) 1 vial SQ BIDAC [facility] PRN Reason: Protocol Last Admin: 03/13/16 16:54 Dose: 8 units Levothyroxine Sodium (Synthroid -) 50 mcg PO DAILY@0700 [facility] Last Admin: 03/13/16 06:22 Dose: 50 mcg - Objective Vital Signs: Vital Signs Temperature 97.8 F 03/13/16 14:51 Pulse Rate 82 03/13/16 14:51 Respiratory Rate 22 03/13/16 14:51 Blood Pressure 121/60 03/13/16 14:51 O2 Sat by Pulse Oximetry (%) 97 03/13/16 09:00 Constitutional: Yes: Well Nourished, No Distress, Calm Eyes: Yes: WNL Neck: Yes: Supple Cardiovascular: Yes: Regular Rate and Rhythm, S1, S2 Respiratory: Yes: Regular, CTA Bilaterally Gastrointestinal: Yes: Normal Bowel Sounds, Soft Genitourinary: Yes: Anuria Musculoskeletal: Yes: WNL Extremities: Yes: WNL Edema: No Peripheral Pulses WNL: Yes Integumentary: Yes: WNL Neurological: Yes: Alert, Oriented, Cran Nerves II-XII Intact ...Motor Strength: WNL Psychiatric: Yes: WNL Labs: CBC, BMP 03/13/16 07:20 03/13/16 09:15 INR, PTT INR 1.05 (0.82-1.09) 03/10/16 11:56 - ....Imaging Cat Scan: Report Reviewed Problem List - Problems (1) Diabetes Assessment/Plan: Diabetes being controlled with Reg Insulin during this stay Code(s): E11.9 - TYPE 2 DIABETES MELLITUS WITHOUT COMPLICATIONS Qualifiers: Diabetes mellitus mcfp insulin use: with mcfp use (2) Elevated LFTs Assessment/Plan: LFTs are improving as bacteremia being treated with ZOSYN. MRCP ordered to ascertain any site of obstruction Code(s): R79.89 - OTHER SPECIFIED ABNORMAL FINDINGS OF BLOOD CHEMISTRY (3) Obesity Code(s): E66.9 - OBESITY, UNSPECIFIED (4) Pneumonia Assessment/Plan: CT of chest does not show any pneumonia Code(s): J18.9 - PNEUMONIA, UNSPECIFIED ORGANISM Qualifiers: Pneumonia type: due to unspecified organism Laterality: unspecified laterality Lung location: unspecified part of lung Qualified Code(s) : J18.9 - Pneumonia, unspecified organism (5) Schizophrenia in remission Code(s): F20.9 - SCHIZOPHRENIA, UNSPECIFIED (6) Gram-negative bacteremia Assessment/Plan: E COLI bacteremia being treated with Zosyn, leukocytosis is now down to 11,200 Code(s): R78.81 - BACTEREMIA Assessment/Plan Continue Zosyn. MRCP to be done to delineate if any sign of obstruction. Patient and aware. did EGD with duodenoscopy and could not find site of implantation of CBD in the duodenum during same type of episode last year
[2016-03-13] MEDS: clonazePAM 0.5 MG TABLET PO SCH (22:26)
[2016-03-13] MEDS: IMIPRAMINE HCL 25 MG TABLET PO SCH (22:26)
[2016-03-14] MEDS: LEVOTHYROXINE NA 50 MCG TABLET (FP) PO SCH (06:30)
[2016-03-14] MEDS ORDERED: INSULIN (NOVOLOG) ASPART 100 UNITS/ML 10ML VIAL ONE ×2 (06:33→16:48)
[2016-03-14] MEDS: INSULIN SLIDING SCALE (NOVOLOG) 1 VIAL SQ SCH ×2 (06:33→16:59)
[2016-03-14 09:16] LABS: ALBUMIN 3.6 g/dl (3.4-5.0); ANION GAP 8 (8-16); CALCIUM 9.2 mg/dL (8.5-10.1); CO2 27 mmol/L (21-32); GLUCOSE,RANDOM 223 mg/dL (74-106)
[2016-03-14 09:19] LABS: ALK PHOS 165 U/L (45-117); CREATININE 1.1 mg/dL (0.7-1.3); SGOT/AST 60 U/L (15-37); SGPT/ALT 117 U/L (12-78); TOT PROT 7.3 g/dl (6.4-8.2)
[2016-03-14] MEDS: amLODIPine BESYLATE 5 MG TABLET (FP) PO SCH (09:36)
[2016-03-14] MEDS: CEFTRIAXONE 100 ML IVPB SCH (09:36)
--- NOTE | 2016-03-14 13:35 | PN ---
GI Progress Note Subjective: No acute events No abdominal pain LFTs improving - Objective Vital Signs: Vital Signs Temperature 96.8 F L 03/14/16 08:00 Pulse Rate 81 03/14/16 08:00 Respiratory Rate 20 03/14/16 08:00 Blood Pressure 139/70 03/14/16 08:00 O2 Sat by Pulse Oximetry (%) 98 03/14/16 09:00 Constitutional: Calm Eyes: Yes: Sclera Icterus Cardiovascular: Yes: Regular Rate and Rhythm, Murmur (+ systolic murmur at left and right sternal border) Respiratory: Yes: CTA Bilaterally Gastrointestinal Inspection: Yes: Scars (RUQ scar). No: Distention ...Auscultate: Yes: Normoactive Bowel Sounds ...Palpate: No: Tenderness Neurological: Yes: Alert, Oriented (x 3) Labs: CBC, BMP 03/13/16 07:20 03/14/16 08:25 INR, PTT INR 1.05 (0.82-1.09) 03/10/16 11:56 Problem List - Problems (1) Elevated LFTs Assessment/Plan: with e/ coli bactermia, a sequelae of previous bile duct injury / choledochoduodenostomy leading to intermittent cholangitis would need to be considered as the culprit (debris in the duct / stones / sump syndrome). I discussed this with Mr. Martínez in [place] along with possible ERCP to evaluate the choledochoduodenostomy but felt he would better understand this in [facility]. I used [email or web address] [facility] ion implant machine operator [id number] however Mr. Martínez stated multiple times that he did not understand what she was staying. I did confirm she was speaking [facility]. I called his Lauren Martínez [phone]. I explained the clinical situation and potential risks of the procedure like but not limited to bleeding, perforation, sedation effects all of which could be potentially life threatening. She stated that she would talk with her regarding this. Awaiting MRCP and Echocardiogram to assess degree of valvular pathology given heart murmur Monitor LFTs Abx per ID . Code(s): R79.89 - OTHER SPECIFIED ABNORMAL FINDINGS OF BLOOD CHEMISTRY
--- NOTE | 2016-03-14 14:13 | PN ---
Progress Note, Physician History of Present Illness: OOB in chair No c/o abdominal pain Denies N/V/D Reports occasional cough Temps down- afebrile WBC improved - Current Medication List Current Medications: Active Medications Acetaminophen (Tylenol -) 325 mg PO Q4H PRN PRN Reason: FEVER OR PAIN Last Admin: 03/13/16 09:00 Dose: 325 mg Amlodipine Besylate (Norvasc -) 5 mg PO DAILY [facility] Last Admin: 03/14/16 09:36 Dose: 5 mg Clonazepam (Klonopin -) 0.5 mg PO HS [facility] Last Admin: 03/13/16 22:26 Dose: 0.5 mg Diazepam (Valium -) 5 mg PO ONCE ONE Stop: 03/13/16 16:25 Ceftriaxone Sodium (Rocephin 2gm Ivpb (Pre-Docked)) 100 mls @ 200 mls/hr IVPB DAILY [facility] Last Admin: 03/14/16 09:36 Dose: 200 mls/hr Imipramine HCl (Tofranil -) 75 mg PO [facility] Last Admin: 03/13/16 22:26 Dose: 75 mg Insulin Aspart (Novolog Vial Sliding Scale -) 1 vial SQ BIDAC [facility] PRN Reason: Protocol Last Admin: 03/14/16 06:33 Dose: 6 units Levothyroxine Sodium (Synthroid -) 50 mcg PO DAILY@0700 [facility] Last Admin: 03/14/16 06:30 Dose: 50 mcg - Objective Vital Signs: Vital Signs Temperature 97.3 F L 03/14/16 14:00 Pulse Rate 82 03/14/16 14:00 Respiratory Rate 18 03/14/16 14:00 Blood Pressure 139/70 03/14/16 08:00 O2 Sat by Pulse Oximetry (%) 98 03/14/16 09:00 Constitutional: Yes: No Distress Eyes: Yes: Conjunctiva Clear Cardiovascular: Yes: Regular Rate and Rhythm, S1, S2 Respiratory: Yes: CTA Bilaterally Gastrointestinal: Yes: Normal Bowel Sounds, Soft, Abdomen, Obese. No: Tenderness Edema: Yes Edema: LLE: 1+, RLE: 1+ Labs: CBC, BMP 03/13/16 07:20 03/14/16 08:25 INR, PTT INR 1.05 (0.82-1.09) 03/10/16 11:56 Assessment/Plan E coli bacteremia/ sepsis possible biliary tract focus Bibasilar infiltrates Elevated LFTs Continue ceftriaxone GI follow up noted
[2016-03-14] MEDS ORDERED: PT OWN MED DRAWER 7, Y5N ONE (16:58)
[2016-03-14] MEDS ORDERED: diazePAM 5 MG TABLET PO ONE (17:00)
--- NOTE | 2016-03-14 20:22 | PN ---
Progress Note, Physician History of Present Illness: Denies any shaking chills, N/V, melena. - Current Medication List Current Medications: Active Medications Acetaminophen (Tylenol -) 325 mg PO Q4H PRN PRN Reason: FEVER OR PAIN Last Admin: 03/13/16 09:00 Dose: 325 mg Amlodipine Besylate (Norvasc -) 5 mg PO DAILY [facility] Last Admin: 03/14/16 09:36 Dose: 5 mg Clonazepam (Klonopin -) 0.5 mg PO HS [facility] Last Admin: 03/13/16 22:26 Dose: 0.5 mg Ceftriaxone Sodium (Rocephin 2gm Ivpb (Pre-Docked)) 100 mls @ 200 mls/hr IVPB DAILY [facility] Last Admin: 03/14/16 09:36 Dose: 200 mls/hr Imipramine HCl (Tofranil -) 75 mg PO HS [facility] Last Admin: 03/13/16 22:26 Dose: 75 mg Insulin Aspart (Novolog Vial Sliding Scale -) 1 vial SQ BIDAC [facility] PRN Reason: Protocol Last Admin: 03/14/16 16:59 Dose: 8 units Levothyroxine Sodium (Synthroid -) 50 mcg PO DAILY@0700 [facility] Last Admin: 03/14/16 06:30 Dose: 50 mcg - Objective Vital Signs: Vital Signs Temperature 97.7 F 03/14/16 19:26 Pulse Rate 79 03/14/16 19:26 Respiratory Rate 20 03/14/16 19:26 Blood Pressure 135/68 03/14/16 19:26 O2 Sat by Pulse Oximetry (%) 95 03/14/16 20:03 Constitutional: Yes: Well Nourished, No Distress, Calm Eyes: Yes: WNL, Conjunctiva Clear, EOM Intact HENT: Yes: WNL Neck: Yes: Supple Cardiovascular: Yes: Regular Rate and Rhythm, S1, S2 Respiratory: Yes: Regular, CTA Bilaterally Gastrointestinal: Yes: Normal Bowel Sounds, Soft Genitourinary: Yes: WNL Musculoskeletal: Yes: WNL Extremities: Yes: WNL Edema: No Peripheral Pulses WNL: Yes Integumentary: Yes: WNL Neurological: Yes: Alert, Oriented ...Motor Strength: WNL Psychiatric: Yes: Alert, Oriented Labs: CBC, BMP 03/13/16 07:20 03/14/16 08:25 INR, PTT INR 1.05 (0.82-1.09) 03/10/16 11:56 Problem List - Problems (1) Diabetes Assessment/Plan: Diabetes controlled with sliding scale with Insulin Code(s): E11.9 - TYPE 2 DIABETES MELLITUS WITHOUT COMPLICATIONS Qualifiers: Diabetes mellitus petroleum terminal plant operator insulin use: with custodial use (2) Elevated LFTs Assessment/Plan: LFTs have improved markedly, alk. phos is still elevated. MRCP result awaited Code(s): R79.89 - OTHER SPECIFIED ABNORMAL FINDINGS OF BLOOD CHEMISTRY (3) Obesity Code(s): E66.9 - OBESITY, UNSPECIFIED (4) Pneumonia Code(s): J18.9 - PNEUMONIA, UNSPECIFIED ORGANISM Qualifiers: Pneumonia type: due to unspecified organism Laterality: unspecified laterality Lung location: unspecified part of lung Qualified Code(s) : J18.9 - Pneumonia, unspecified organism (5) Schizophrenia in remission Code(s): F20.9 - SCHIZOPHRENIA, UNSPECIFIED (6) Gram-negative bacteremia Code(s): R78.81 - BACTEREMIA Assessment/Plan MRCP result awaited. LFTS have improved. E Coli sensitive to all ABCs. Now on Rocephin. To undergo ERCP but difficult to say if it will help.
[2016-03-14] MEDS: IMIPRAMINE HCL 25 MG TABLET PO SCH (22:37)
[2016-03-14] MEDS: clonazePAM 0.5 MG TABLET PO SCH (22:38)
[2016-03-15] MEDS: LEVOTHYROXINE NA 50 MCG TABLET (FP) PO SCH (06:20)
[2016-03-15] MEDS: INSULIN SLIDING SCALE (NOVOLOG) 1 VIAL SQ SCH ×2 (06:21→16:52)
[2016-03-15 08:45] LABS: BASOPHIL 0.9 % (0-2.0); EOSINOPHIL 5.9 % (0-4.5); MCH 32.6 pg (25.7-33.7); MEAN PLT VOLUME 8.7 fl (7.5-11.1); NEUTROPHILS 59.9 % (42.8-82.8); PLATELET COUNT 293 K/MM3 (134-434); RDW 13.6 % (11.9-15.9); WHITE BLOOD COUNT 10.5 K/mm3 (4.0-10.0)
[2016-03-15 09:13] LABS: INR 1.06 (0.82-1.09); PROTHROMBIN TIME (PATIENT) 11.7 SEC (9.98-11.88)
[2016-03-15 09:17] LABS: ALBUMIN 3.8 g/dl (3.4-5.0); ALK PHOS 199 U/L (45-117); ANION GAP 7 (8-16); BILIRUBIN,DIRECT 1.1 mg/dL (0.0-0.2); CALCIUM 9.5 mg/dL (8.5-10.1); CO2 23 mmol/L (21-32); CREATININE 1.1 mg/dL (0.7-1.3); GLUCOSE,RANDOM 221 mg/dL (74-106); SGOT/AST 78 U/L (15-37); SGPT/ALT 126 U/L (12-78); TOT PROT 7.5 g/dl (6.4-8.2)
[2016-03-15] MEDS: CEFTRIAXONE 100 ML IVPB SCH (09:26)
[2016-03-15] MEDS: amLODIPine BESYLATE 5 MG TABLET (FP) PO SCH (09:26)
[2016-03-15] MEDS ORDERED: ROCURONIUM BROMIDE 50 MG/5 ML VIAL ONE (11:14)
[2016-03-15] MEDS ORDERED: NEOSTIGMINE METHYLSULFATE 0.5 MG/ML - 10 ML MDV ONE (11:14)
[2016-03-15] MEDS ORDERED: GLUCAGON 1 MG KIT ONE (11:14)
[2016-03-15] MEDS ORDERED: GLYCOPYRROLATE 0.2 MG/1 ML VIAL ONE (11:14)
--- NOTE | 2016-03-15 12:44 | PN ---
Progress Note (short form) - Note Progress Note: GI procedure note: Please see ERCP report. Attempted ERCP revealed no evidence of a choledochoduodenostomy. There was no bile emanating from the major or minor papillae. Will discuss transfer to tertiary care center with the patient and his . Case discussed with Dr. Ham who does not feel that the PTC will be easily feasible.
[2016-03-15] MEDS ORDERED: INSULIN (NOVOLOG) ASPART 100 UNITS/ML 10ML VIAL ONE (16:51)
--- NOTE | 2016-03-15 19:41 | PN ---
Progress Note (short form) - Note Progress Note: ERCP report noted. No choledochoduodenostomy noted. Reviewing previous written notes from office archives, it appears as though Mr. Martínez likely had a hepaticojejunostomy performed. I had D/W Dr. Alberto Sewell, hepatobiliary surgeon at [facility]. he agreed with repeat MRCP but also said that stricture / malignancy at the anastamosis would need to be excluded. Transfer to a tertiary care center such as [facility] would be reasonable for further evaluation. I have started actigal 300mg PO BID for now Monitor LFTs Problem List - Problems (1) Elevated LFTs Code(s): R79.89 - OTHER SPECIFIED ABNORMAL FINDINGS OF BLOOD CHEMISTRY
[2016-03-15] MEDS ORDERED: PT OWN MED DRAWER 7, Y5N ONE (21:28)
--- NOTE | 2016-03-15 21:54 | PN ---
Progress Note, Physician History of Present Illness: Underwent ERCP this AM without complications.Denies any abdominal pain, denies vomiting.Denies any shaking chills. - Current Medication List Current Medications: Active Medications Acetaminophen (Tylenol -) 325 mg PO Q4H PRN PRN Reason: FEVER OR PAIN Last Admin: 03/13/16 09:00 Dose: 325 mg Amlodipine Besylate (Norvasc -) 5 mg PO DAILY [facility] Last Admin: 03/15/16 09:26 Dose: 5 mg Clonazepam (Klonopin -) 0.5 mg PO [facility] Last Admin: 03/14/16 22:38 Dose: 0.5 mg Ceftriaxone Sodium (Rocephin 2gm Ivpb (Pre-Docked)) 100 mls @ 200 mls/hr IVPB DAILY [facility] Last Admin: 03/15/16 09:26 Dose: 200 mls/hr Imipramine HCl (Tofranil -) 75 mg PO [facility] Last Admin: 03/14/16 22:37 Dose: 75 mg Insulin Aspart (Novolog Vial Sliding Scale -) 1 vial SQ BIDAC [facility] PRN Reason: Protocol Last Admin: 03/15/16 16:52 Dose: 10 units Levothyroxine Sodium (Synthroid -) 50 mcg PO DAILY@0700 [facility] Last Admin: 03/15/16 06:20 Dose: 50 mcg Ursodiol (Actigal -) 300 mg PO BID [facility] - Objective Vital Signs: Vital Signs Temperature 97.6 F 03/15/16 14:25 Pulse Rate 108 H 03/15/16 14:25 Respiratory Rate 18 03/15/16 14:25 Blood Pressure 149/71 03/15/16 14:25 O2 Sat by Pulse Oximetry (%) 97 03/15/16 14:25 Constitutional: Yes: No Distress, Calm Eyes: Yes: Conjunctiva Clear HENT: Yes: WNL Neck: Yes: Supple, Trachea Midline Cardiovascular: Yes: Regular Rate and Rhythm, S1, S2 Respiratory: Yes: Regular, CTA Bilaterally Gastrointestinal: Yes: Normal Bowel Sounds, Soft Genitourinary: Yes: WNL Musculoskeletal: Yes: WNL Extremities: Yes: WNL Edema: No Peripheral Pulses WNL: Yes Integumentary: Yes: WNL Neurological: Yes: Alert, Oriented ...Motor Strength: WNL Psychiatric: Yes: Alert, Oriented Labs: CBC, BMP 03/15/16 08:00 01/04/17 08:00 INR, PTT INR 1.06 (0.82-1.09) 03/15/16 08:00 - ....Imaging MRI: Report Reviewed Problem List - Problems (1) Diabetes Code(s): E11.9 - TYPE 2 DIABETES MELLITUS WITHOUT COMPLICATIONS Qualifiers: Diabetes mellitus care home insulin use: with meterman use (2) Elevated LFTs Assessment/Plan: Exact bypass procedure performed in the past to be determined. Will roger further studies to be done at [facility] if patient and agree. Code(s): R79.89 - OTHER SPECIFIED ABNORMAL FINDINGS OF BLOOD CHEMISTRY (3) Obesity Code(s): E66.9 - OBESITY, UNSPECIFIED (4) Pneumonia Assessment/Plan: No Pneumonia as per CT scan Code(s): J18.9 - PNEUMONIA, UNSPECIFIED ORGANISM Qualifiers: Pneumonia type: due to unspecified organism Laterality: unspecified laterality Lung location: unspecified part of lung Qualified Code(s) : J18.9 - Pneumonia, unspecified organism (5) Schizophrenia in remission Code(s): F20.9 - SCHIZOPHRENIA, UNSPECIFIED (6) Gram-negative bacteremia Code(s): R78.81 - BACTEREMIA Assessment/Plan Will discuss with about further studies to be performed. Continue Rocephin IV daily
[2016-03-15] MEDS: IMIPRAMINE HCL 25 MG TABLET PO SCH (22:48)
[2016-03-15] MEDS: URSODIOL 300 MG CAPSULE PO SCH (22:48)
[2016-03-15] MEDS: clonazePAM 0.5 MG TABLET PO SCH (22:48)
[2016-03-16] MEDS: LEVOTHYROXINE NA 50 MCG TABLET (FP) PO SCH (06:27)
[2016-03-16] MEDS: INSULIN SLIDING SCALE (NOVOLOG) 1 VIAL SQ SCH ×2 (06:28→17:15)
[2016-03-16] MEDS ORDERED: INSULIN (NOVOLOG) ASPART 100 UNITS/ML 10ML VIAL ONE ×2 (06:35→16:55)
[2016-03-16 08:12] LABS: BASOPHIL 1.2 % (0-2.0); EOSINOPHIL 7.1 % (0-4.5); MCH 32.8 pg (25.7-33.7); MCHC 34.3 g/dl (32.0-35.9); MEAN CELL VOLUME 95.6 fl (80-96); MEAN PLT VOLUME 8.5 fl (7.5-11.1); NEUTROPHILS 52.4 % (42.8-82.8); PLATELET COUNT 262 K/MM3 (134-434); RDW 13.5 % (11.9-15.9); WHITE BLOOD COUNT 10.2 K/mm3 (4.0-10.0)
[2016-03-16 08:35] LABS: ALBUMIN 3.2 g/dl (3.4-5.0); BILIRUBIN,DIRECT 0.8 mg/dL (0.0-0.2); BILIRUBIN,TOTAL 1.6 mg/dL (0.2-1.0); CALCIUM 8.9 mg/dL (8.5-10.1); TOT PROT 6.5 g/dl (6.4-8.2)
[2016-03-16 08:36] LABS: INR 1.14 (0.82-1.09); PROTHROMBIN TIME (PATIENT) 12.6 SEC (9.98-11.88)
[2016-03-16] MEDS: CEFTRIAXONE 100 ML IVPB SCH (09:52)
[2016-03-16] MEDS: URSODIOL 300 MG CAPSULE PO SCH ×2 (09:52→22:41)
[2016-03-16] MEDS: amLODIPine BESYLATE 5 MG TABLET (FP) PO SCH (09:52)
--- NOTE | 2016-03-16 15:51 | PN ---
Progress Note, Physician History of Present Illness: S/P ERCP No c/o abdominal pain No fever/ chills Tolerating liquid diet Afebrile WBC improved 10K - Current Medication List Current Medications: Active Medications Acetaminophen (Tylenol -) 325 mg PO Q4H PRN PRN Reason: FEVER OR PAIN Last Admin: 03/13/16 09:00 Dose: 325 mg Amlodipine Besylate (Norvasc -) 5 mg PO DAILY [facility] Last Admin: 03/16/16 09:52 Dose: 5 mg Clonazepam (Klonopin -) 0.5 mg PO HS [facility] Last Admin: 03/15/16 22:48 Dose: 0.5 mg Ceftriaxone Sodium (Rocephin 2gm Ivpb (Pre-Docked)) 100 mls @ 200 mls/hr IVPB DAILY [facility] Last Admin: 03/16/16 09:52 Dose: 200 mls/hr Imipramine HCl (Tofranil -) 75 mg PO HS [facility] Last Admin: 03/15/16 22:48 Dose: 75 mg Insulin Aspart (Novolog Vial Sliding Scale -) 1 vial SQ BIDAC [facility] PRN Reason: Protocol Last Admin: 03/16/16 06:28 Dose: 8 units Levothyroxine Sodium (Synthroid -) 50 mcg PO DAILY@0700 [facility] Last Admin: 03/16/16 06:27 Dose: 50 mcg Ursodiol (Actigal -) 300 mg PO BID [facility] Last Admin: 03/16/16 09:52 Dose: 300 mg - Objective Vital Signs: Vital Signs Temperature 97.9 F 03/16/16 13:34 Pulse Rate 74 03/16/16 13:34 Respiratory Rate 20 03/16/16 13:34 Blood Pressure 141/69 03/16/16 11:28 O2 Sat by Pulse Oximetry (%) 97 03/16/16 11:28 Constitutional: Yes: No Distress Cardiovascular: Yes: Regular Rate and Rhythm, S1, S2 Respiratory: Yes: CTA Bilaterally Gastrointestinal: Yes: Normal Bowel Sounds, Soft. No: Tenderness Edema: Yes Labs: CBC, BMP 03/16/16 07:35 03/16/16 07:35 INR, PTT INR 1.14 (0.82-1.09) 03/16/16 07:35 Assessment/Plan E coli bacteremia/ sepsis possible biliary tract focus Bibasilar infiltrates Elevated LFTs Day 7 IV antibiotics Substitute levaquin 500mg po qd x 7d
--- NOTE | 2016-03-16 15:58 | PN ---
GI Progress Note Subjective: No acute events No abdominal pain Tolerating PO - Objective Vital Signs: Vital Signs Temperature 97.9 F 03/16/16 13:34 Pulse Rate 74 03/16/16 13:34 Respiratory Rate 20 03/16/16 13:34 Blood Pressure 141/69 03/16/16 11:28 O2 Sat by Pulse Oximetry (%) 97 03/16/16 11:28 Constitutional: Calm Eyes: No: Sclera Icterus Cardiovascular: Yes: Regular Rate and Rhythm, Murmur Respiratory: Yes: CTA Bilaterally Gastrointestinal Inspection: No: Distention ...Auscultate: Yes: Normoactive Bowel Sounds Edema: No Labs: CBC, BMP 03/16/16 07:35 03/16/16 07:35 INR, PTT INR 1.14 (0.82-1.09) 03/16/16 07:35 Hepatic Panel Total Bilirubin 1.6 mg/dL (0.2-1.0) H 03/16/16 07:35 Direct Bilirubin 0.8 mg/dL (0.0-0.2) H D 03/16/16 07:35 AST 66 U/L (15-37) H 03/16/16 07:35 ALT 113 U/L (12-78) H 03/16/16 07:35 Alkaline Phosphatase 183 U/L (45-117) H 03/16/16 07:35 Albumin 3.2 g/dl (3.4-5.0) L 03/16/16 07:35 Problem List - Problems (1) Elevated LFTs Assessment/Plan: Discussed plan with Dr. Galdamez today as well as Ms. Martínez who was bedside. Explained that clinically he is improving and that is LFTs continue to improves , no fevers/leukocytosis, Mr. Lynn will be able to go home on PO Abx and follow-up with Dr. Alberto Sewell, hepatobiliary surgeon at [facility] [phone]. If not, then PTC can be performed for external drainage. Abx per ID Code(s): R79.89 - OTHER SPECIFIED ABNORMAL FINDINGS OF BLOOD CHEMISTRY
[2016-03-16] MEDS: clonazePAM 0.5 MG TABLET PO SCH (22:41)
[2016-03-16] MEDS: IMIPRAMINE HCL 25 MG TABLET PO SCH (22:42)
[2016-03-17] MEDS: LEVOTHYROXINE NA 50 MCG TABLET (FP) PO SCH (07:09)
[2016-03-17] MEDS: INSULIN SLIDING SCALE (NOVOLOG) 1 VIAL SQ SCH (07:09)
[2016-03-17 08:18] LABS: ALBUMIN 3.4 g/dl (3.4-5.0); ANION GAP 7 (8-16); BILIRUBIN,TOTAL 1.7 mg/dL (0.2-1.0); CO2 27 mmol/L (21-32); GLUCOSE,RANDOM 190 mg/dL (74-106); SGOT/AST 56 U/L (15-37); SGPT/ALT 103 U/L (12-78); TOT PROT 6.5 g/dl (6.4-8.2)
[2016-03-17 08:23] LABS: ALK PHOS 168 U/L (45-117); CALCIUM 8.8 mg/dL (8.5-10.1)
[2016-03-17] MEDS ORDERED: LEVOFLOXACIN 500 MG TABLET (FP) PO SCH (10:00)
[2016-03-17] MEDS: amLODIPine BESYLATE 5 MG TABLET (FP) PO SCH (10:18)
[2016-03-17] MEDS: URSODIOL 300 MG CAPSULE PO SCH (10:18)
--- NOTE | 2016-03-17 14:48 | PN ---
Progress Note, Physician History of Present Illness: Patient examined on 03/16/16 Denies any fever,N/V, abdominal pain or melena. - Current Medication List Current Medications: Active Medications Acetaminophen (Tylenol -) 325 mg PO Q4H PRN PRN Reason: FEVER OR PAIN Last Admin: 03/13/16 09:00 Dose: 325 mg Amlodipine Besylate (Norvasc -) 5 mg PO DAILY [facility] Last Admin: 03/17/16 10:18 Dose: 5 mg Clonazepam (Klonopin -) 0.5 mg PO HS [facility] Last Admin: 03/16/16 22:41 Dose: 0.5 mg Imipramine HCl (Tofranil -) 75 mg PO HS [facility] Last Admin: 03/16/16 22:42 Dose: 75 mg Insulin Aspart (Novolog Vial Sliding Scale -) 1 vial SQ BIDAC [facility] PRN Reason: Protocol Last Admin: 03/17/16 07:09 Dose: 6 units Levofloxacin (Levaquin -) 500 mg PO DAILY [facility] Last Admin: 03/17/16 10:18 Dose: 500 mg Levothyroxine Sodium (Synthroid -) 50 mcg PO DAILY@0700 [facility] Last Admin: 03/17/16 07:09 Dose: 50 mcg Ursodiol (Actigal -) 300 mg PO BID [facility] Last Admin: 03/17/16 10:18 Dose: 300 mg - Objective Vital Signs: Vital Signs Temperature 97.6 F 03/17/16 14:00 Pulse Rate 88 03/17/16 14:00 Respiratory Rate 20 03/17/16 14:00 Blood Pressure 126/70 03/17/16 06:00 O2 Sat by Pulse Oximetry (%) 97 03/16/16 21:00 Constitutional: Yes: No Distress, Calm Eyes: Yes: Conjunctiva Clear, EOM Intact HENT: Yes: WNL, Atraumatic, Normocephalic Neck: Yes: WNL, Supple Cardiovascular: Yes: Regular Rate and Rhythm, S1, S2 Respiratory: Yes: Regular, CTA Bilaterally Gastrointestinal: Yes: Normal Bowel Sounds, Soft Genitourinary: Yes: WNL Musculoskeletal: Yes: WNL Extremities: Yes: WNL Edema: No Peripheral Pulses WNL: Yes Integumentary: Yes: WNL Neurological: Yes: Alert, Oriented ...Motor Strength: WNL Psychiatric: Yes: Alert, Oriented Labs: CBC, BMP 03/16/16 07:35 03/17/16 06:30 INR, PTT INR 1.14 (0.82-1.09) 03/16/16 07:35 - ....Imaging MRI: Report Reviewed Problem List - Problems (1) Diabetes Code(s): E11.9 - TYPE 2 DIABETES MELLITUS WITHOUT COMPLICATIONS Qualifiers: Diabetes mellitus usp insulin use: with medical voucher clerk use (2) Elevated LFTs Assessment/Plan: Lfts continue to improve, ERCP showed she there was no flow from papilla records reviewed shows patient had choledochojejunostomy. Code(s): R79.89 - OTHER SPECIFIED ABNORMAL FINDINGS OF BLOOD CHEMISTRY (3) Obesity Code(s): E66.9 - OBESITY, UNSPECIFIED (4) Pneumonia Code(s): J18.9 - PNEUMONIA, UNSPECIFIED ORGANISM Qualifiers: Pneumonia type: due to unspecified organism Laterality: unspecified laterality Lung location: unspecified part of lung Qualified Code(s) : J18.9 - Pneumonia, unspecified organism (5) Schizophrenia in remission Code(s): F20.9 - SCHIZOPHRENIA, UNSPECIFIED (6) Gram-negative bacteremia Code(s): R78.81 - BACTEREMIA Assessment/Plan Case discussed with and and is advisable for him to see a biliary surgeon who can perform a billiary sten if necessary. Will discharge on PO Lavaquin
[2016-03-17 16:35] VITALS: BP 125/50; PULSE 84; TEMP 97.1
== END 2016-03-17 18:11 | disposition home or self-care (01) | DRG 871 ==
LOC: JER 11:16 → JERBED 13:18 → J6S 17:46
PROVIDERS: ADMIT Internal Medicine Hematology & Oncology; ATTEND Internal Medicine Hematology & Oncology
PROC: 0DJ08ZZ Inspection of Upper Intestinal Tract, Via Natural or Artificial Opening Endoscopic (ICD-10-PCS; principal; 2016-03-15 11:00)
DX: A41.51 Sepsis due to Escherichia coli [E. coli] (principal); J18.9 Pneumonia, unspecified organism; K83.0 Cholangitis; I10 Essential (primary) hypertension; E11.9 Type 2 diabetes mellitus without complications; Z79.4 Long term (current) use of insulin; F20.9 Schizophrenia, unspecified; F41.9 Anxiety disorder, unspecified; E66.9 Obesity, unspecified; Z68.31 Body mass index [BMI] 31.0-31.9, adult
CPT/HCPCS: 36415; 71010-TC; 71250-TC; 74181-TC; 76000-TC; 76705-TC; 80048; 80053; 80076; 81003; 82105; 82150; 82550; 83605; 83690; 83880; 84443; 84484; 85025; 85610; 85730; 86140; 86850; 86900; 86901; 87040; 87086; 87186; 87899; 93005; 93010; 93306-TC; 99284-25

== ENCOUNTER 2016-08-02 23:35 | Inpatient (IN) | payer OTHER, MEDICARE ==
[2016-08-03 00:08] VITALS: BMI 31.3
[2016-08-03] MEDS ORDERED: SODIUM CHLORIDE 0.9% 1000 ML INFUS.BAG IV PRN (00:10)
--- NOTE | 2016-08-03 00:10 | PDOC ---
History of Present Illness - General History Source: Patient, Spouse Exam Limitations: No Limitations - History of Present Illness Initial Comments: 08/03/16 00:19 The patient is a 75 year old male with significant past medical history of hypertension, pulmonary fibrosis, diabetes, hypothyroidism, and anxiety who presents to the ED accompanied by for tactile fever and SOB prior to arrival. Patient reports he was in his usual state of health when he developed SOB and tactile fever about half hour prior to arrival. He reports associated chills and diaphoresis. , at bedside, reports giving him two advil prior to arrival to control the fever. At time of evaluation, he is currently complaining of SOB. States he was admitted in the past for sepsis. Patient also has complaints of left upper quadrant pain and nausea, but no vomiting or diarrhea. The patient denies lightheadedness, cough, leg swelling, chest pain, and palpitations. Allergies: NKDA Social History: No alcohol, tobacco, or drug use reported. Past Surgical History: cholecystectomy PCP: Dr. Eduardo Galdamez <Camille Parks - Last Filed: 08/03/16 05:45> - General History Source: Patient <Jayme Mederos - Last Filed: 08/08/16 19:26> - General Chief Complaint: SIRS, Suspected/Possible Stated Complaint: SHAKING Time Seen by Provider: 08/03/16 00:05 Past History <Camille Parks - Last Filed: 08/03/16 05:45> - Past Medical History Anemia: No Asthma: No Cancer: No Cardiac Disorders: No CVA: No COPD: (Pulm fibrosis) CHF: No Dementia: No Diabetes: Yes GI Disorders: No Disorders: No HTN: Yes Hypercholesterolemia: No Liver Disease: No Psychiatric Problems: Yes (ANXIETY, PANIC ATTACKS.) Seizures: No Thyroid Disease: Yes - Surgical History Abdominal Surgery: Yes Appendectomy: No Cardiac Surgery: No Cholecystectomy: Yes Lung Surgery: No Neurologic Surgery: No Orthopedic Surgery: No - Immunization History Immunization Up to Date: Yes - Psycho/Social/Smoking Cessation Hx Anxiety: No Suicidal Ideation: No Smoking History: Unknown if ever smoked Have you smoked in the past 12 months: No If you are a former smoker, when did you quit?: 1985 Cigars Per Day: 0 Hx Alcohol Use: No Drug/Substance Use Hx: No Substance Use Type: None Hx Substance Use Treatment: No <Jayme Mederos - Last Filed: 08/08/16 19:26> - Past Medical History Allergies/Adverse Reactions: Allergies Allergy/AdvReac Type Severity Reaction Status Date / Time No Known Allergies Allergy Verified 03/10/16 11:21 Home Medications: Ambulatory Orders Clonazepam [Klonopin -] 0.5 mg PO DAILY 03/20/14 Insulin Lispro Protamin/Lispro [Humalog Mix 75-25 Kwikpen] 30 unit SQ BID Amlodipine Besylate [Norvasc -] 5 mg PO DAILY 08/16/15 Insulin Detemir [Levemir Flextouch] 20 unit SQ BID 08/16/15 Imipramine HCl [Tofranil -] 75 mg PO HS tablet 03/17/16 Levothyroxine [Synthroid -] 50 mcg PO DAILY@0700 tablet 03/17/16 Ursodiol [Actigal -] 300 mg PO BID #60 capsule 03/17/16 Amlodipine Besylate [Norvasc -] 5 mg PO DAILY tablet 08/06/16 Imipramine HCl [Tofranil -] 75 mg PO HS tablet 08/06/16 Levofloxacin [Levaquin -] 500 mg PO DAILY #5 tablet 08/06/16 Levothyroxine [Synthroid -] 50 mcg PO DAILY@0700 tablet 08/06/16 Review of Systems - Review of Systems Able to Perform ROS?: Yes Comments:: 08/03/16 00:19 CONSTITUTIONAL: +tactile fever, chills, diaphoresis Absent: generalized weakness, malaise, loss of appetite HEENT: Absent: rhinorrhea, nasal congestion, throat pain, throat swelling, difficulty swallowing, mouth swelling, ear pain, eye pain, visual Changes CARDIOVASCULAR: Absent: chest pain, syncope, palpitations, irregular heart rate, lightheadedness , peripheral edema RESPIRATORY: +SOB Absent: cough, dyspnea with exertion, orthopnea, wheezing, stridor, hemoptysis GASTROINTESTINAL: +L upper quadrant, nausea Absent: abdominal distension, vomiting, diarrhea, constipation, melena, hematochezia GENITOURINARY: Absent: dysuria, frequency, urgency, hesitancy, hematuria, flank pain, genital pain MUSCULOSKELETAL: Absent: myalgia, arthralgia, joint swelling SKIN: Absent: rash, itching, pallor NEUROLOGIC: Absent: headache, focal weakness or paresthesias, dizziness, unsteady gait, seizure, mental status changes, bladder or bowel incontinence PSYCHIATRIC: Absent: anxiety, depression, suicidal or homicidal ideation, hallucinations. <Camille Parks - Last Filed: 08/03/16 05:45> *Physical Exam - Vital Signs Last Vital Signs Temp Pulse Resp BP Pulse Ox 98.5 F 121 H 28 H 141/75 93 L 08/03/16 00:07 08/03/16 00:07 08/03/16 00:07 08/03/16 00:07 08/03/16 00:07 - Physical Exam Comments: 08/03/16 00:19 GENERAL: Well developed, well nourished. Awake and alert. Mild distress. HEENT: Normocephalic, atraumatic. PERRLA, EOMI. No conjunctival pallor. Sclera are non- icteric. Moist mucous membranes. Oropharynx is clear. NECK: Supple. Full ROM. No JVD. Carotid pulses 2+ and symmetric, without bruits. No thyromegaly. No lymphadenopathy. CARDIOVASCULAR: Tachycardia.n Regular rhythm. No murmurs, rubs, or gallops. Distal pulses are 2 + and symmetric. PULMONARY: No evidence of respiratory distress. Bilateral crackles and rhonchi. No wheezing or rales. ABDOMINAL: Obese. Soft. Non-tender. Non-distended. No rebound or guarding. Normoactive bowel sounds. MUSCULOSKELETAL Normal range of motion at all joints. No bony deformities or tenderness. No CVA tenderness. EXTREMITIES: No cyanosis. No clubbing. No edema. No calf tenderness. SKIN: Warm and dry. Normal capillary refill. No rashes. No jaundice. NEUROLOGICAL: Alert, awake, appropriate. Cranial nerves 2-12 intact. Moving all extremities. No gross neurological deficits. PSYCHIATRIC: Slightly anxious. Cooperative. Good eye contact. <Camille Parks - Last Filed: 08/03/16 05:45> - Vital Signs Last Vital Signs Temp Pulse Resp BP Pulse Ox 98.5 F 121 H 28 H 141/75 93 L 08/03/16 00:07 08/03/16 00:07 08/03/16 00:07 08/03/16 00:07 08/03/16 00:07 <Jayme Mederos - Last Filed: 08/08/16 19:26> Heart Score/ECG Review - ECG Impressions Comment:: 08/03/16 00:29 Sinus tachycardia with frequent premature ventricular complexes @114bpm Otherwise normal ECG <Camille Parks - Last Filed: 08/03/16 05:45> ED Treatment Course - LABORATORY CBC & Chemistry Diagram: 08/03/16 00:42 08/03/16 00:42 - RADIOLOGY Radiograph Interpretation: 08/03/16 02:12 EXAM: X-ray chest Reviewed by Imaging master fire control technician: FINDINGS: Heart size is not well evaluated on portable technique. Aorta is tortuous. There is mild to moderate pulmonary edema versus interstitial pneumonia. There may be a small right pleural effusion. IMPRESSION: Mild/moderate pulmonary edema versus interstitial pneumonia. <Camille Parks - Last Filed: 08/03/16 05:45> - LABORATORY CBC & Chemistry Diagram: 08/06/16 06:10 08/06/16 06:10 <Jayme Mederos - Last Filed: 08/08/16 19:26> Medical Decision Making - Medical Decision Making 08/03/16 02:[address] Eduardo Galdamez (via cell phone) at 2:05 and left a voicemail. Awaiting call back 08/03/16 05:45 Second call placed to Dr. Galdamez (via cell phone) at 5:45 and patient's case was discussed. <Camille Parks - Last Filed: 08/03/16 05:45> - Medical Decision Making 08/08/16 19:26 Dr. Mederso: The scribe's documentation has been prepared under my direction and personally reviewed by me in its entirery. I confirm that the note above accurately reflects all work, treatment, procedures, and medical decision making performed by me. <Jayme Mederos - Last Filed: 08/08/16 19:26> *DC/Admit/Observation/Transfer - Attestations Scribe Attestion: 08/03/16 00:20 Documentation prepared by Camille Parks, acting as medical center director for Jayme Mederos MD/. <Camille Parks - Last Filed: 08/03/16 05:45> - Discharge Dispostion Admit: Yes <Jayme Mederos - Last Filed: 08/08/16 19:26> Diagnosis at time of Disposition: Severe sepsis - Discharge Dispostion Disposition: HOME - Prescriptions
[2016-08-03 01:01] LABS: BASOPHIL 0.5 % (0-2.0); EOSINOPHIL 0.5 % (0-4.5); MCH 31.9 pg (25.7-33.7); MCHC 33.4 g/dl (32.0-35.9); MEAN CELL VOLUME 95.5 fl (80-96); MEAN PLT VOLUME 8.5 fl (7.5-11.1); NEUTROPHILS 90.4 % (42.8-82.8); PLATELET COUNT 274 K/MM3 (134-434); RDW 13.2 % (11.9-15.9); WHITE BLOOD COUNT 13.1 K/mm3 (4.0-10.0)
[2016-08-03 01:05] LABS: VENOUS PH 7.44 (7.32-7.42)
[2016-08-03 01:14] LABS: INR 1.17 (0.82-1.09); PROTHROMBIN TIME (PATIENT) 12.9 SEC (9.98-11.88)
[2016-08-03 01:16] LABS: ACTIVATED PTT 30.2 SECONDS (26.9-34.4)
[2016-08-03 01:23] LABS: ALBUMIN 3.5 g/dl (3.4-5.0); ANION GAP 12 (8-16); BILIRUBIN,TOTAL 2.1 mg/dL (0.2-1.0); CALCIUM 8.7 mg/dL (8.5-10.1); CO2 25 mmol/L (21-32); COCKROFT - GAULT 63.96; CREATININE 1.3 mg/dL (0.7-1.3); GLUCOSE,RANDOM 281 mg/dL (74-106); SGPT/ALT 134 U/L (12-78); TOT PROT 6.7 g/dl (6.4-8.2)
[2016-08-03 01:25] LABS: ALK PHOS 175 U/L (45-117); TROPONIN I < 0.02 ng/ml (0.00-0.05)
[2016-08-03 01:29] LABS: SGOT/AST 222 U/L (15-37)
[2016-08-03] MEDS ORDERED: FUROSEMIDE 40 MG/4 ML INJECTABLE VIAL IVPUSH ONE (02:01)
[2016-08-03] MEDS ORDERED: FUROSEMIDE 40 MG/4 ML INJECTABLE VIAL ONE (02:13)
[2016-08-03] MEDS ORDERED: PIPERACILLIN/TAZOB 3.375 GM 3.375 GM in DEXTROSE 5%-WATER - 50 ML IVPB ONE (05:48)
[2016-08-03] MEDS ORDERED: VANCOMYCIN 1,000 MG in DEXTROSE 5%-WATER - 250 ML IVPB ONE (05:48)
[2016-08-03] MEDS ORDERED: PIPERACILLIN/TAZOB 3.375 GM 50 ML IVPB ONE (05:53)
[2016-08-03] MEDS ORDERED: VANCOMYCIN 1 GRAM (PRE-DOCKED) 250 ML IVPB ONE (06:31)
--- NOTE | 2016-08-03 10:23 | CONSULT ---
Consultation: REQUESTING PROVIDER: CONSULT REQUEST: We have been asked to medically evaluate this patient for (ID ) . HISTORY OF PRESENT ILLNESS: The patient is a 75 year old male with significant past medical history of hypertension, pulmonary fibrosis, diabetes, hypothyroidism, and anxiety who presents to the ED with a complaint fever, chills. Patient states that every thing started yesterday night. Patient states that he has chronic dry cough and their is no recent change in cough. States that he has some and gets sob while walking, going upstairs. He sleeps with one pillow, denies orthopnea, paroxysmal nocturnal dysnea. sleeps with one pillow, states have some swelling in legs. Denies pain in chest, pain abdomen, burning micturation. states urine color yellow, stool colow normal. Denies nausea, vomiting. Denies yellow discoloration of skin and eyes. denies sick contact. Patient states that he has multiple episodes of cholangitis in past. Not on home oxygen dont use inhalers in home. Allergies: NKDA Past Surgical History: cholecystectomy PCP: Dr. Eduardo Galdamez REVIEW OF SYSTEMS: CONSTITUTIONAL: Absent: fever, chills, diaphoresis, HEENT: Absent: rhinorrhea, nasal congestion, throat pain, throat swelling, CARDIOVASCULAR: Absent: chest pain, syncope, palpitations, RESPIRATORY: Absent: cough, shortness of breath, dyspnea with exertion, orthopnea, GASTROINTESTINAL: Absent: abdominal pain, abdominal distension, nausea, vomiting, diarrhea, constipation, GENITOURINARY: Absent: dysuria, frequency, urgency, hesitancy, PHYSICAL EXAMINATION Vital Signs - 24 hr 08/03/16 08/03/16 08/03/16 06:01 06:44 09:42 Temperature 98.2 F 97.9 F Pulse Rate [ 98 H 107 H Apical] Respiratory 20 18 Rate Blood Pressure 135/78 124/74 [Left] O2 Sat by Pulse 98 98 98 Oximetry (%) GENERAL: Awake, alert, and fully oriented, ill appearing HEAD: Normal with no signs of trauma. EYES: sclera anicteric, conjunctiva clear. No lid lag. EARS, NOSE, THROAT: dry mucous membranes. LUNGS: Breath sounds equal, b/l crackels in bases, no wheezing, tachypnic, HEART: s1s2 n ABDOMEN: Soft, nontender, not distended, normoactive bowel sounds, no guarding, no rebound, UPPER EXTREMITIES: 2+ pulses, warm, well-perfused. No cyanosis. LOWER EXTREMITIES: 2+ pulses, warm, well-perfused. No calf tenderness. No peripheral edema. Active Medications Generic Name Dose Route Start Last Admin Trade Name Freq PRN Reason Stop Dose Admin Insulin Aspart 1 vial 08/03/16 11:00 Novolog Vial Sliding Scale - SQ TIDAC HUNG Protocol Sodium Chloride 1,000 ml 08/03/16 00:10 Normal Saline - IV Q20M PRN MAP<65mm Hg OR SBP <90 CBCD WBC 13.1 K/mm3 (4.0-10.0) H 08/03/16 00:42 RBC 4.31 M/mm3 (4.00-5.60) 08/03/16 00:42 Hgb 13.7 GM/dL (11.7-16.9) 08/03/16 00:42 Hct 41.1 % (35.4-49) 08/03/16 00:42 MCV 95.5 fl (80-96) 08/03/16 00:42 MCHC 33.4 g/dl (32.0-35.9) 08/03/16 00:42 RDW 13.2 % (11.9-15.9) 08/03/16 00:42 Plt Count 274 K/MM3 (134-434) 08/03/16 00:42 MPV 8.5 fl (7.5-11.1) 08/03/16 00:42 CMP Sodium 138 mmol/L (136-145) 08/03/16 00:42 Potassium 4.6 mmol/L (3.5-5.1) 08/03/16 00:42 Chloride 101 mmol/L (98-107) 08/03/16 00:42 Carbon Dioxide 25 mmol/L (21-32) 08/03/16 00:42 Anion Gap 12 (8-16) 08/03/16 00:42 BUN 20 mg/dL (7-18) H D 08/03/16 00:42 Creatinine 1.3 mg/dL (0.7-1.3) D 08/03/16 00:42 Creat Clearance w eGFR 53.96 (>60) 08/03/16 00:42 Random Glucose 281 mg/dL (74-106) H D 08/03/16 00:42 Calcium 8.7 mg/dL (8.5-10.1) 08/03/16 00:42 Total Bilirubin 2.1 mg/dL (0.2-1.0) H D 08/03/16 00:42 AST 222 U/L (15-37) H D 08/03/16 00:42 ALT 134 U/L (12-78) H D 08/03/16 00:42 Alkaline Phosphatase 175 U/L (45-117) H 08/03/16 00:42 Total Protein 6.7 g/dl (6.4-8.2) 08/03/16 00:42 Albumin 3.5 g/dl (3.4-5.0) 08/03/16 00:42 CARDIAC ENZYMES Creatine Kinase 116 IU/L (39-308) 08/03/16 00:42 Troponin I < 0.02 ng/ml (0.00-0.05) 08/03/16 00:42 ASSESSMENT/PLAN: ASSESSMENT AND PLAN: suspect sepsis could be from pneumonia. But also consider cholangitis and urine source Plan blood and urine culture will start him on ceftriaxone and metronidazole get urine legionella and strep get liver usg get crp iv fluid trend lactic acid incentive spirometry oxygen to maintain spo2 Dispo: We will continue to follow the patient. Thank you for this consultative opportunity. Visit type - Emergency Visit Emergency Visit: Yes ED Registration Date: 08/03/16 Care time: The patient presented to the Emergency Department on the above date and was hospitalized for further evaluation of their emergent condition. - New Patient This patient is new to me today: Yes Date on this admission: 08/03/16 - Critical Care Critical Care patient: No
--- NOTE | 2016-08-03 10:45 | PN ---
Teaching Attending Note Name of Resident: Cornelius Bowden ATTENDING PHYSICIAN STATEMENT I saw and evaluated the patient. I reviewed the resident's note and discussed the case with the resident. I agree with the resident's findings and plan as documented. SUBJECTIVE:ID Consult 75 year old male with complicated "biliary" Laboratory Tests 08/03/16 08/03/16 08/03/16 00:41 00:42 00:42 WBC 13.1 H Hgb 13.7 Plt Count 274 Neutrophils % 90.4 H D Lymphocytes % 6.2 L D Monocytes % 2.4 L INR 1.17 H BUN Creatinine Creat Clearance w eGFR Lactic Acid 2.4 H* Total Bilirubin AST ALT Alkaline Phosphatase Total Protein Albumin 08/03/16 08/03/16 00:42 04:10 WBC Hgb Plt Count Neutrophils % Lymphocytes % Monocytes % INR BUN 20 H D Creatinine 1.3 D Creat Clearance w eGFR 53.96 Lactic Acid 2.7 H* Total Bilirubin 2.1 H D AST 222 H D ALT 134 H D Alkaline Phosphatase 175 H Total Protein 6.7 Albumin 3.5 history including cholecystectomy and bouts of cholangitis including E COli bacteremia 02/1016. Presents with fever and shaking chills but no abd pain. Has pulmonary fibrosis by history. OBJECTIVE: Ill appearing Lung Bilateral rales Cor S1 S2 RR Abd Benign Ext no edema ASSESSMENT AND PLAN: Suspect sepsis related to pulmonary source however must consider cholangitis as well as urinary infection Plan Pancultures Empiric therapy Legionella rapid Sonogram liver Ceftriaxone metronidazole CRP Cary ZAMORANO
[2016-08-03] MEDS ORDERED: ALBUTEROL SO4 2.5/IPRATROPIUM 0.5 INH SOL 3 ML VIAL.NEB. NEB PRN (10:54)
[2016-08-03] MEDS ORDERED: METRONIDAZOLE 500 MG PREMIXED 100 ML IVPB ONE (11:26)
[2016-08-03] MEDS ORDERED: CEFTRIAXONE 50 ML ONE (11:26)
[2016-08-03] MEDS: METRONIDAZOLE 500 MG PREMIXED 100 ML IVPB SCH ×2 (11:30→17:45)
[2016-08-03] MEDS: SODIUM CHLORIDE 1,000 ML IV SCH (11:38)
[2016-08-03] MEDS: CEFTRIAXONE 50 ML IVPB SCH (11:47)
[2016-08-03] MEDS: INSULIN SLIDING SCALE (NOVOLOG) 1 VIAL SQ SCH ×2 (11:47→16:59)
[2016-08-03] MEDS ORDERED: INSULIN REGULAR HUMAN 100 UNITS/ML *VIAL ONE (11:51)
--- NOTE | 2016-08-03 13:06 | EKG ---
Test Reason : Blood Pressure : / mmHG Vent. Rate : 114 BPM Atrial Rate : 114 BPM P-R Int : 202 ms QRS Dur : 090 ms QT Int : 300 ms P-R-T Axes : 033 013 030 degrees QTc Int : 413 ms SINUS TACHYCARDIA WITH FREQUENT PREMATURE VENTRICULAR COMPLEXES OTHERWISE NORMAL ECG WHEN COMPARED WITH ECG OF 10-MAR-2016 13:01, PREMATURE VENTRICULAR COMPLEXES ARE NOW PRESENT Confirmed by JANA PASCAL MD ([id number]) on 08/03/2016 1:05:48 PM Referred By: Confirmed By:JANA PASCAL MD
--- NOTE | 2016-08-03 16:51 | HP ---
Admitting History and Physical - Primary Care Physician PCP: Eduardo Galdamez - Admission Chief Complaint: Shaking chills and fever History of Present Illness: Around 10 PM develoed shaking chills which continued. He has had episodes of ascending cholangitis in the past due to the CBD being implanted in the jejunum due to laceration at the time of cholecystectomy. Several of these episodes were associated with bacteremia and elevated LFTs. Denies any abdominal pain or vomiting History Source: Patient Limitations to Obtaining History: No Limitations - Past Medical History Cardiovascular: Yes: HTN. No: Other Pulmonary: Yes: Pneumonia, Pulmonary Fibrosis Gastrointestinal: Yes: Gastritis, Other (COMPLICATIONS FROM GB SURGERY (BILE DUCT INJURY) PROBABLE BILE DUCT SURGERY) Hepatobiliary: Yes: Other (fatty liver, BACK CIRRHOSIS) Psych: Yes: Anxiety, Depression, Schizophrenia. No: Bipolar, Panic, Psychosis, Other Endocrine: Yes: Diabetes Mellitus, Hypothyroidism. No: Sierra's Disease, Stinnett's Disease, Diabetes Insipidus, Hyperparathyroidism, Hyperthyroidism, Osteopenia, SIADH, Other - Past Surgical History Past Surgical History: Yes: Cholecystectomy - Smoking History Smoking history: Former smoker Have you smoked in the past 12 months: No If you are a former smoker, when did you quit?: 1985 - Alcohol/Substance Use Hx Alcohol Use: No History of Substance Use: reports: None - Social History Usual Living Arrangement: Yes: With Spouse ADL: Independent History of Recent Travel: No Home Medications - Allergies Allergies/Adverse Reactions: Allergies Allergy/AdvReac Type Severity Reaction Status Date / Time No Known Allergies Allergy Verified 03/10/16 11:21 - Home Medications Home Medications: Ambulatory Orders Clonazepam [Klonopin -] 0.5 mg PO DAILY 03/20/14 Insulin Lispro Protamin/Lispro [Humalog Mix 75-25 Kwikpen] 30 unit SQ BID Amlodipine Besylate [Norvasc -] 5 mg PO DAILY 08/16/15 Insulin Detemir [Levemir Flextouch] 20 unit SQ BID 08/16/15 Imipramine HCl [Tofranil -] 75 mg PO HS tablet 03/17/16 Levothyroxine [Synthroid -] 50 mcg PO DAILY@0700 tablet 03/17/16 Ursodiol [Actigal -] 300 mg PO BID #60 capsule 03/17/16 Review of Systems - Review of Systems Constitutional: reports: Chills Eyes: reports: No Symptoms HENT: reports: No Symptoms Neck: reports: No Symptoms Cardiovascular: reports: No Symptoms. denies: Chest Pain, Edema, Palpitations, Shortness of Breath, Other Respiratory: reports: No Symptoms Gastrointestinal: reports: No Symptoms Genitourinary: reports: No Symptoms Musculoskeletal: reports: No Symptoms Integumentary: reports: No Symptoms Neurological: reports: No Symptoms Endocrine: reports: No Symptoms Hematology/Lymphatic: reports: No Symptoms Psychiatric: reports: No Symptoms Physical Examination Vital Signs: Vital Signs Temperature 97.9 F 08/03/16 12:27 Pulse Rate 82 08/03/16 15:06 Respiratory Rate 18 08/03/16 15:06 Blood Pressure 135/72 08/03/16 15:06 O2 Sat by Pulse Oximetry (%) 98 08/03/16 15:06 Constitutional: Yes: Well Nourished, No Distress, Calm Eyes: Yes: Conjunctiva Clear, EOM Intact HENT: Yes: WNL Neck: Yes: Supple Cardiovascular: Yes: Regular Rate and Rhythm, S1, S2 Respiratory: Yes: Regular, Rales Gastrointestinal: Yes: Normal Bowel Sounds, Soft Renal/: Yes: WNL Musculoskeletal: Yes: WNL Extremities: Yes: WNL Edema: No Peripheral Pulses WNL: Yes Integumentary: Yes: WNL Neurological: Yes: Alert, Oriented ...Motor Strength: WNL Psychiatric: Yes: Alert, Oriented Imaging - Results X-ray: Report Reviewed, Image Reviewed EKG: Report Reviewed Problem List - Problems (1) Diabetes Assessment/Plan: Has not been compliant in following diet recommendations Code(s): E11.9 - TYPE 2 DIABETES MELLITUS WITHOUT COMPLICATIONS Qualifiers: Diabetes mellitus macular edema: without macular edema Diabetes mellitus alf insulin use: with alf use (2) Elevated LFTs Code(s): R79.89 - OTHER SPECIFIED ABNORMAL FINDINGS OF BLOOD CHEMISTRY (3) Obesity Code(s): E66.9 - OBESITY, UNSPECIFIED (4) Ascending cholangitis Assessment/Plan: CBD has been anastamosed to the jejunum after it was lacerated during cholecystectomy Code(s): K83.0 - CHOLANGITIS (5) Diabetes 1.5, managed as type 1 Code(s): E13.9 - OTHER SPECIFIED DIABETES MELLITUS WITHOUT COMPLICATIONS (6) Hypothyroid Assessment/Plan: He is on replacement levothyroxine Code(s): E03.9 - HYPOTHYROIDISM, UNSPECIFIED (7) Interstitial lung disease Code(s): J84.9 - INTERSTITIAL PULMONARY DISEASE, UNSPECIFIED Assessment/Plan Case discussed with and was started on IV Flagyl and IV Rocephin. Await blood cultures.
[2016-08-03] MEDS ORDERED: PT OWN MED DRAWER 7, Y5N ONE (17:48)
[2016-08-03 19:30] LABS: URINE APPEARANCE CLEAR; URINE BLOOD NEGATIVE (NEGATIVE); URINE COLOR AMBER; URINE GLUCOSE (UA) 2+ (NEGATIVE); URINE KETONE NEGATIVE (NEGATIVE); URINE LEUK ESTERASE NEGATIVE (NEGATIVE); URINE NITRITE NEGATIVE (NEGATIVE); URINE PROTEIN NEGATIVE (NEGATIVE); URINE UROBILINOGEN 4.0 E.U/dl E.U./dl (0.2-1.0)
[2016-08-03] MEDS: IMIPRAMINE HCL 25 MG TABLET PO SCH (21:02)
[2016-08-03] MEDS: URSODIOL 300 MG CAPSULE PO SCH (21:02)
[2016-08-04] MEDS: METRONIDAZOLE 500 MG PREMIXED 100 ML IVPB SCH ×3 (01:53→17:22)
[2016-08-04] MEDS: INSULIN SLIDING SCALE (NOVOLOG) 1 VIAL SQ SCH ×3 (06:46→16:54)
[2016-08-04] MEDS: LEVOTHYROXINE NA 50 MCG TABLET (FP) PO SCH (06:46)
[2016-08-04] MEDS: SODIUM CHLORIDE 1,000 ML IV SCH ×2 (06:49→11:47)
[2016-08-04 07:58] LABS: BASOPHIL 0.3 % (0-2.0); EOSINOPHIL 4.1 % (0-4.5); MEAN CELL VOLUME 97.1 fl (80-96); MEAN PLT VOLUME 8.6 fl (7.5-11.1); NEUTROPHILS 78.5 % (42.8-82.8); PLATELET COUNT 220 K/MM3 (134-434); RDW 13.6 % (11.9-15.9); WHITE BLOOD COUNT 11.3 K/mm3 (4.0-10.0)
[2016-08-04 08:51] LABS: ALBUMIN 2.9 g/dl (3.4-5.0); ALK PHOS 128 U/L (45-117); ANION GAP 10 (8-16); BILIRUBIN,TOTAL 3.9 mg/dL (0.2-1.0); CO2 23 mmol/L (21-32); COCKROFT - GAULT 83.15; GLUCOSE,RANDOM 151 mg/dL (74-106); SGOT/AST 73 U/L (15-37); SGPT/ALT 110 U/L (12-78); TOT PROT 5.7 g/dl (6.4-8.2)
[2016-08-04] MEDS: URSODIOL 300 MG CAPSULE PO SCH ×2 (09:16→21:58)
[2016-08-04] MEDS: amLODIPine BESYLATE 5 MG TABLET (FP) PO SCH (09:17)
[2016-08-04] MEDS: clonazePAM 0.5 MG TABLET PO SCH (09:17)
[2016-08-04] MEDS: CEFTRIAXONE 50 ML IVPB SCH (09:17)
--- NOTE | 2016-08-04 09:25 | PN ---
Progress Note, Physician History of Present Illness: A case of ascending cholangitis, denies any shaking chills, abdominal pain or vomiting. - Current Medication List Current Medications: Active Medications Albuterol/Ipratropium (Duoneb -) 1 amp NEB Q6H PRN PRN Reason: SHORTNESS OF BREATH Amlodipine Besylate (Norvasc -) 5 mg PO DAILY [facility] Last Admin: 08/04/16 09:17 Dose: 5 mg Clonazepam (Klonopin -) 0.5 mg PO DAILY [facility] Last Admin: 08/04/16 09:17 Dose: 0.5 mg Sodium Chloride (Normal Saline -) 1,000 mls @ 75 mls/hr IV ASDIR [facility] Last Admin: 08/04/16 06:49 Dose: 75 mls/hr Ceftriaxone Sodium (Rocephin 1gm Ivpb (Pre-Docked)) 50 mls @ 100 mls/hr IVPB DAILY [facility] Last Admin: 08/04/16 09:17 Dose: 100 mls/hr Metronidazole (Flagyl 500mg Premixed Ivpb -) 100 mls @ 100 mls/hr IVPB Q8H-IV [facility] Last Admin: 08/04/16 01:53 Dose: 100 mls/hr Imipramine HCl (Tofranil -) 75 mg PO HS [facility] Last Admin: 08/03/16 21:02 Dose: 75 mg Insulin Aspart (Novolog Vial Sliding Scale -) 1 vial SQ TIDAC [facility] PRN Reason: Protocol Last Admin: 08/04/16 06:46 Dose: Not Given Levothyroxine Sodium (Synthroid -) 50 mcg PO DAILY@0700 [facility] Last Admin: 08/04/16 06:46 Dose: 50 mcg Sodium Chloride (Normal Saline -) 1,000 ml IV Q20M PRN PRN Reason: MAP<65mm Hg OR SBP <90 Ursodiol (Actigal -) 300 mg PO BID [facility] Last Admin: 08/04/16 09:16 Dose: 300 mg - Objective Vital Signs: Vital Signs Temperature 97.9 F 08/04/16 06:00 Pulse Rate 87 08/04/16 06:00 Respiratory Rate 20 08/04/16 06:00 Blood Pressure 120/68 08/04/16 06:00 O2 Sat by Pulse Oximetry (%) 100 08/03/16 21:00 Constitutional: Yes: Well Nourished, No Distress, Calm Eyes: Yes: WNL, Conjunctiva Clear, EOM Intact HENT: Yes: WNL Neck: Yes: Supple Cardiovascular: Yes: Regular Rate and Rhythm, S1, S2 Respiratory: Yes: Regular, Rales Gastrointestinal: Yes: Normal Bowel Sounds, Soft, Abdomen, Obese Genitourinary: Yes: WNL Musculoskeletal: Yes: WNL Extremities: Yes: WNL Edema: No Peripheral Pulses WNL: Yes Integumentary: Yes: WNL Neurological: Yes: Alert, Oriented ...Motor Strength: WNL Psychiatric: Yes: Alert, Oriented Labs: CBC, BMP 08/04/16 06:30 08/04/16 06:30 INR, PTT INR 1.17 (0.82-1.09) H 08/03/16 00:42 Problem List - Problems (1) Diabetes Assessment/Plan: Well controlled with Regular Insulin at present Code(s): E11.9 - TYPE 2 DIABETES MELLITUS WITHOUT COMPLICATIONS Qualifiers: Diabetes mellitus macular edema: without macular edema Diabetes mellitus longterm insulin use: with longterm use (2) Elevated LFTs Assessment/Plan: LFTs have improved from the ones from admission Code(s): R79.89 - OTHER SPECIFIED ABNORMAL FINDINGS OF BLOOD CHEMISTRY (3) Obesity Code(s): E66.9 - OBESITY, UNSPECIFIED (4) Ascending cholangitis Assessment/Plan: Remains afebrile and does not report any shaking chills Code(s): K83.0 - CHOLANGITIS (5) Diabetes 1.5, managed as type 1 Code(s): E13.9 - OTHER SPECIFIED DIABETES MELLITUS WITHOUT COMPLICATIONS (6) Hypothyroid Code(s): E03.9 - HYPOTHYROIDISM, UNSPECIFIED (7) Interstitial lung disease Code(s): J84.9 - INTERSTITIAL PULMONARY DISEASE, UNSPECIFIED Assessment/Plan BC have been nagative so far and remains afebrile at present on Flagyl and Rocephin IV
[2016-08-04] MEDS ORDERED: INSULIN (NOVOLOG) ASPART 100 UNITS/ML 10ML VIAL ONE (11:46)
--- NOTE | 2016-08-04 14:14 | PN ---
Progress Note, Physician Chief Complaint: ID Feeling better - Current Medication List Current Medications: Active Medications Albuterol/Ipratropium (Duoneb -) 1 amp NEB Q6H PRN PRN Reason: SHORTNESS OF BREATH Amlodipine Besylate (Norvasc -) 5 mg PO DAILY [facility] Last Admin: 08/04/16 09:17 Dose: 5 mg Clonazepam (Klonopin -) 0.5 mg PO DAILY [facility] Last Admin: 08/04/16 09:17 Dose: 0.5 mg Sodium Chloride (Normal Saline -) 1,000 mls @ 75 mls/hr IV ASDIR [facility] Last Admin: 08/04/16 11:47 Dose: Not Given Ceftriaxone Sodium (Rocephin 1gm Ivpb (Pre-Docked)) 50 mls @ 100 mls/hr IVPB DAILY [facility] Last Admin: 08/04/16 09:17 Dose: 100 mls/hr Metronidazole (Flagyl 500mg Premixed Ivpb -) 100 mls @ 100 mls/hr IVPB Q8H-IV [facility] Last Admin: 08/04/16 10:17 Dose: 100 mls/hr Imipramine HCl (Tofranil -) 75 mg PO HS [facility] Last Admin: 08/03/16 21:02 Dose: 75 mg Insulin Aspart (Novolog Vial Sliding Scale -) 1 vial SQ TIDAC [facility] PRN Reason: Protocol Last Admin: 08/04/16 11:48 Dose: 8 units Levothyroxine Sodium (Synthroid -) 50 mcg PO DAILY@0700 [facility] Last Admin: 08/04/16 06:46 Dose: 50 mcg Sodium Chloride (Normal Saline -) 1,000 ml IV Q20M PRN PRN Reason: MAP<65mm Hg OR SBP <90 Ursodiol (Actigal -) 300 mg PO BID [facility] Last Admin: 08/04/16 09:16 Dose: 300 mg - Objective Vital Signs: Vital Signs Temperature 98.2 F 08/04/16 09:29 Pulse Rate 84 08/04/16 09:29 Respiratory Rate 23 08/04/16 09:29 Blood Pressure 127/61 08/04/16 09:29 O2 Sat by Pulse Oximetry (%) 100 08/03/16 21:00 Constitutional: Yes: Well Nourished, No Distress Cardiovascular: Yes: Regular Rate and Rhythm, S1, S2 Respiratory: Yes: WNL, Regular, CTA Bilaterally. No: Rales, Rhonchi Gastrointestinal: Yes: WNL, Normal Bowel Sounds, Soft. No: Tenderness Edema: No Labs: CBC, BMP 08/04/16 06:30 08/04/16 06:30 INR, PTT INR 1.17 (0.82-1.09) H 08/03/16 00:42 Assessment/Plan Microbiology 08/03/16 18:20 Urine - Urine Clean Catch Legionella Antigen - Final 08/03/16 18:20 Urine - Urine Clean Catch Streptococcus pneumoniae Antigen ( M - Final 08/03/16 01:20 Urine - Urine Clean Catch Urine Culture - Final NO GROWTH OBTAINED 08/03/16 00:42 Blood - Peripheral Venous Blood Culture - Preliminary NO GROWTH OBTAINED AFTER 24 HOURS, INCUBATION TO CONTINUE FOR 4 DAYS. 08/03/16 00:41 Blood - Peripheral Venous Blood Culture - Preliminary NO GROWTH OBTAINED AFTER 24 HOURS, INCUBATION TO CONTINUE FOR 4 DAYS. Laboratory Tests 08/03/16 08/04/16 08/04/16 18:26 06:30 06:30 WBC 11.3 H Hgb 13.2 Plt Count 220 Neutrophils % 78.5 Lymphocytes % 11.0 D Monocytes % 6.1 D BUN 21 H Total Bilirubin 3.9 H D AST 73 H D ALT 110 H Alkaline Phosphatase 128 H D Urine Blood Negative Urine Nitrite Negative Assessment Fever uncertain cause Cultures negative. I do not think he has cholangitis clinically and blood cultures negative. Plan Consider switch to oral therapy next 24-48hours perhaps rubén Townsend MD
[2016-08-04] MEDS: IMIPRAMINE HCL 25 MG TABLET PO SCH (21:59)
[2016-08-05] MEDS: METRONIDAZOLE 500 MG PREMIXED 100 ML IVPB SCH (01:40)
[2016-08-05] MEDS: SODIUM CHLORIDE 1,000 ML IV SCH ×2 (01:41→12:18)
[2016-08-05] MEDS: LEVOTHYROXINE NA 50 MCG TABLET (FP) PO SCH (06:08)
[2016-08-05] MEDS: INSULIN SLIDING SCALE (NOVOLOG) 1 VIAL SQ SCH ×3 (06:09→16:58)
--- NOTE | 2016-08-05 07:05 | PN ---
Progress Note, Physician Chief Complaint: ID Remains asymtomatic and afebrile Ceftriaxone and metronidazole - Current Medication List Current Medications: Active Medications Albuterol/Ipratropium (Duoneb -) 1 amp NEB Q6H PRN PRN Reason: SHORTNESS OF BREATH Amlodipine Besylate (Norvasc -) 5 mg PO DAILY [facility] Last Admin: 08/04/16 09:17 Dose: 5 mg Clonazepam (Klonopin -) 0.5 mg PO DAILY [facility] Last Admin: 08/04/16 09:17 Dose: 0.5 mg Sodium Chloride (Normal Saline -) 1,000 mls @ 75 mls/hr IV ASDIR [facility] Last Admin: 08/05/16 01:41 Dose: 75 mls/hr Ceftriaxone Sodium (Rocephin 1gm Ivpb (Pre-Docked)) 50 mls @ 100 mls/hr IVPB DAILY [facility] Last Admin: 08/04/16 09:17 Dose: 100 mls/hr Metronidazole (Flagyl 500mg Premixed Ivpb -) 100 mls @ 100 mls/hr IVPB Q8H-IV [facility] Last Admin: 08/05/16 01:40 Dose: 100 mls/hr Imipramine HCl (Tofranil -) 75 mg PO HS [facility] Last Admin: 08/04/16 21:59 Dose: 75 mg Insulin Aspart (Novolog Vial Sliding Scale -) 1 vial SQ TIDAC [facility] PRN Reason: Protocol Last Admin: 08/05/16 06:09 Dose: 4 units Levothyroxine Sodium (Synthroid -) 50 mcg PO DAILY@0700 [facility] Last Admin: 08/05/16 06:08 Dose: 50 mcg Sodium Chloride (Normal Saline -) 1,000 ml IV Q20M PRN PRN Reason: MAP<65mm Hg OR SBP <90 Ursodiol (Actigal -) 300 mg PO BID [facility] Last Admin: 08/04/16 21:58 Dose: 300 mg - Objective Vital Signs: Vital Signs Temperature 98.2 F 08/04/16 23:36 Pulse Rate 84 08/04/16 23:36 Respiratory Rate 20 08/04/16 23:36 Blood Pressure 125/69 08/04/16 23:36 O2 Sat by Pulse Oximetry (%) 97 08/04/16 21:00 Constitutional: Yes: Well Nourished, No Distress HENT: Yes: WNL, Atraumatic Neck: Yes: WNL, Supple Cardiovascular: Yes: Regular Rate and Rhythm, S1, S2. No: Murmur Respiratory: Yes: Rales Gastrointestinal: Yes: WNL, Normal Bowel Sounds, Soft. No: Tenderness, Tenderness, Epigastrium, Tenderness, Rebound Edema: No Labs: CBC, BMP 08/04/16 06:30 08/04/16 06:30 INR, PTT INR 1.17 (0.82-1.09) H 08/03/16 00:42 Assessment/Plan Microbiology 08/03/16 18:20 Urine - Urine Clean Catch Legionella Antigen - Final 08/03/16 18:20 Urine - Urine Clean Catch Streptococcus pneumoniae Antigen ( M - Final 08/03/16 01:20 Urine - Urine Clean Catch Urine Culture - Final NO GROWTH OBTAINED 08/03/16 00:42 Blood - Peripheral Venous Blood Culture - Preliminary NO GROWTH OBTAINED AFTER 48 HOURS, INCUBATION TO CONTINUE FOR 3 DAYS. 08/03/16 00:41 Blood - Peripheral Venous Blood Culture - Preliminary NO GROWTH OBTAINED AFTER 48 HOURS, INCUBATION TO CONTINUE FOR 3 DAYS. Laboratory Tests 08/04/16 08/04/16 06:30 06:30 WBC 11.3 H Hgb 13.2 Plt Count 220 Total Bilirubin 3.9 H D AST 73 H D ALT 110 H Alkaline Phosphatase 128 H D Assessment Fever unclear source but not convinced this was biliary tract related Sono no dilation of ducts cultures no growth Plan I would be comfortable changing him to oral antibiotic perhaps Levoflox for a few more days Cary ZAMORANO
[2016-08-05] MEDS: amLODIPine BESYLATE 5 MG TABLET (FP) PO SCH (10:39)
[2016-08-05] MEDS: URSODIOL 300 MG CAPSULE PO SCH ×2 (10:39→21:59)
[2016-08-05] MEDS: clonazePAM 0.5 MG TABLET PO SCH (10:39)
[2016-08-05] MEDS: CEFTRIAXONE 50 ML IVPB SCH (10:40)
--- NOTE | 2016-08-05 14:07 | PN ---
Progress Note, Physician History of Present Illness: No N/V, denies abdominal pain. Remains afebrile - Current Medication List Current Medications: Active Medications Albuterol/Ipratropium (Duoneb -) 1 amp NEB Q6H PRN PRN Reason: SHORTNESS OF BREATH Amlodipine Besylate (Norvasc -) 5 mg PO DAILY [facility] Last Admin: 08/05/16 10:39 Dose: 5 mg Clonazepam (Klonopin -) 0.5 mg PO DAILY [facility] Last Admin: 08/05/16 10:39 Dose: 0.5 mg Ceftriaxone Sodium (Rocephin 1gm Ivpb (Pre-Docked)) 50 mls @ 100 mls/hr IVPB DAILY [facility] Last Admin: 08/05/16 10:40 Dose: 100 mls/hr Imipramine HCl (Tofranil -) 75 mg PO HS [facility] Last Admin: 08/04/16 21:59 Dose: 75 mg Insulin Aspart (Novolog Vial Sliding Scale -) 1 vial SQ TIDAC [facility] PRN Reason: Protocol Last Admin: 08/05/16 12:18 Dose: 10 units Levothyroxine Sodium (Synthroid -) 50 mcg PO DAILY@0700 [facility] Last Admin: 08/05/16 06:08 Dose: 50 mcg Ursodiol (Actigal -) 300 mg PO BID [facility] Last Admin: 08/05/16 10:39 Dose: 300 mg - Objective Vital Signs: Vital Signs Temperature 97.4 F L 08/05/16 07:24 Pulse Rate 76 08/05/16 07:24 Respiratory Rate 20 08/05/16 07:24 Blood Pressure 127/66 08/05/16 07:24 O2 Sat by Pulse Oximetry (%) 97 08/04/16 21:00 Constitutional: Yes: Well Nourished, No Distress, Calm Eyes: Yes: WNL HENT: Yes: WNL Neck: Yes: Supple Cardiovascular: Yes: Regular Rate and Rhythm, Murmur, S1, S2 Respiratory: Yes: Regular, Rales Gastrointestinal: Yes: Normal Bowel Sounds, Soft Genitourinary: Yes: WNL Musculoskeletal: Yes: WNL Extremities: Yes: WNL Edema: No Peripheral Pulses WNL: Yes Integumentary: Yes: WNL Neurological: Yes: Alert, Oriented, Cran Nerves II-XII Intact ...Motor Strength: WNL Psychiatric: Yes: Alert, Oriented Labs: CBC, BMP 08/04/16 06:30 08/04/16 06:30 INR, PTT INR 1.17 (0.82-1.09) H 08/03/16 00:42 Problem List - Problems (1) Diabetes Code(s): E11.9 - TYPE 2 DIABETES MELLITUS WITHOUT COMPLICATIONS Qualifiers: Diabetes mellitus macular edema: without macular edema Diabetes mellitus terminal system operator insulin use: with terminal system operator use (2) Elevated LFTs Assessment/Plan: LFTs have improved, all cultures are negative Code(s): R79.89 - OTHER SPECIFIED ABNORMAL FINDINGS OF BLOOD CHEMISTRY (3) Obesity Code(s): E66.9 - OBESITY, UNSPECIFIED (4) Ascending cholangitis Assessment/Plan: Continues to improve Code(s): K83.0 - CHOLANGITIS (5) Diabetes 1.5, managed as type 1 Code(s): E13.9 - OTHER SPECIFIED DIABETES MELLITUS WITHOUT COMPLICATIONS (6) Hypothyroid Code(s): E03.9 - HYPOTHYROIDISM, UNSPECIFIED (7) Interstitial lung disease Code(s): J84.9 - INTERSTITIAL PULMONARY DISEASE, UNSPECIFIED Assessment/Plan 's note appreciated. Recommends switching to PO Levaquin.As BCs are negative and he remains afebrile with marked improvement in LFTs, feel he can be switched to PO ABCs. In the past he presented in a similar way.May consider discharge in AM if stable.
[2016-08-05] MEDS ORDERED: PT OWN MED DRAWER 7, Y5N ONE (21:29)
[2016-08-05] MEDS: IMIPRAMINE HCL 25 MG TABLET PO SCH (21:59)
[2016-08-06] MEDS ORDERED: PT OWN MED DRAWER 7, Y5N ONE (06:16)
[2016-08-06] MEDS: INSULIN SLIDING SCALE (NOVOLOG) 1 VIAL SQ SCH ×2 (06:27→11:04)
--- NOTE | 2016-08-06 07:03 | PN ---
Progress Note, Physician Chief Complaint: ID Remains afebrile Appreciate Dr Barajas's insight given his past history - Current Medication List Current Medications: Active Medications Albuterol/Ipratropium (Duoneb -) 1 amp NEB Q6H PRN PRN Reason: SHORTNESS OF BREATH Amlodipine Besylate (Norvasc -) 5 mg PO DAILY [facility] Last Admin: 08/05/16 10:39 Dose: 5 mg Clonazepam (Klonopin -) 0.5 mg PO DAILY [facility] Last Admin: 08/05/16 10:39 Dose: 0.5 mg Ceftriaxone Sodium (Rocephin 1gm Ivpb (Pre-Docked)) 50 mls @ 100 mls/hr IVPB DAILY [facility] Last Admin: 08/05/16 10:40 Dose: 100 mls/hr Imipramine HCl (Tofranil -) 75 mg PO HS [facility] Last Admin: 08/05/16 21:59 Dose: 75 mg Insulin Aspart (Novolog Vial Sliding Scale -) 1 vial SQ TIDAC [facility] PRN Reason: Protocol Last Admin: 08/06/16 06:27 Dose: 8 units Levothyroxine Sodium (Synthroid -) 50 mcg PO DAILY@0700 [facility] Last Admin: 08/05/16 06:08 Dose: 50 mcg Ursodiol (Actigal -) 300 mg PO BID [facility] Last Admin: 08/05/16 21:59 Dose: 300 mg - Objective Vital Signs: Vital Signs Temperature 98.4 F 08/06/16 06:01 Pulse Rate 94 H 08/06/16 06:01 Respiratory Rate 20 08/06/16 06:01 Blood Pressure 144/66 08/06/16 06:01 O2 Sat by Pulse Oximetry (%) 98 08/05/16 21:00 Constitutional: Yes: Well Nourished, No Distress Neck: Yes: WNL, Supple, Rigid Cardiovascular: Yes: S1, S2 Respiratory: Yes: WNL, Regular, CTA Bilaterally Gastrointestinal: Yes: WNL, Normal Bowel Sounds, Soft. No: Tenderness, Tenderness, Epigastrium Labs: CBC, BMP 08/04/16 06:30 08/04/16 06:30 INR, PTT INR 1.17 (0.82-1.09) H 08/03/16 00:42 Assessment/Plan Laboratory Tests 08/04/16 08/04/16 06:30 06:30 WBC 11.3 H Hgb 13.2 Plt Count 220 Total Bilirubin 3.9 H D AST 73 H D ALT 110 H Alkaline Phosphatase 128 H D Assessment Fever unknown etiology ? biliary Plan Stop antibiotics IV PO Levoflox 500mg daily 3 days Cary ZAMORANO
[2016-08-06 07:13] LABS: BASOPHIL 0.6 % (0-2.0); EOSINOPHIL 5.1 % (0-4.5); MCH 33.2 pg (25.7-33.7); MEAN CELL VOLUME 94.9 fl (80-96); MEAN PLT VOLUME 8.4 fl (7.5-11.1); NEUTROPHILS 60.9 % (42.8-82.8); PLATELET COUNT 232 K/MM3 (134-434); RDW 13.5 % (11.9-15.9)
[2016-08-06 07:46] LABS: ALBUMIN 3.1 g/dl (3.4-5.0); ANION GAP 9 (8-16); BILIRUBIN,TOTAL 1.5 mg/dL (0.2-1.0); CALCIUM 8.5 mg/dL (8.5-10.1); CO2 25 mmol/L (21-32); COCKROFT - GAULT 92.39; CREATININE 0.9 mg/dL (0.7-1.3); GLUCOSE,RANDOM 206 mg/dL (74-106); SGOT/AST 39 U/L (15-37); SGPT/ALT 72 U/L (12-78); TOT PROT 6.1 g/dl (6.4-8.2)
[2016-08-06 07:47] LABS: ALK PHOS 138 U/L (45-117)
[2016-08-06] MEDS ORDERED: LEVOFLOXACIN 500 MG TABLET (FP) PO SCH (10:00)
[2016-08-06] MEDS: clonazePAM 0.5 MG TABLET PO SCH (11:00)
[2016-08-06] MEDS: amLODIPine BESYLATE 5 MG TABLET (FP) PO SCH (11:00)
[2016-08-06] MEDS: URSODIOL 300 MG CAPSULE PO SCH (11:01)
[2016-08-06 13:48] VITALS: PULSE 91
--- NOTE | 2016-08-06 14:50 | DS ---
Physical Examination Vital Signs: Vital Signs Temperature 98.4 F 08/06/16 06:01 Pulse Rate 91 H 08/06/16 13:20 Respiratory Rate 20 08/06/16 06:01 Blood Pressure 144/66 08/06/16 06:01 O2 Sat by Pulse Oximetry (%) 94 L 08/06/16 13:20 Findings/Remarks: Patient seen and examined:Denies any abdominaL pain,N/V. Constitutional: Yes: Well Nourished, No Distress, Calm Eyes: Yes: Conjunctiva Clear, EOM Intact HENT: Yes: WNL Neck: Yes: Supple Cardiovascular: Yes: Regular Rate and Rhythm, Murmur (systolic best heard in mitral area), S1, S2 Respiratory: Yes: Regular, Rales Gastrointestinal: Yes: Normal Bowel Sounds, Soft Renal/: Yes: WNL Breast(s): Yes: WNL Musculoskeletal: Yes: WNL Extremities: Yes: WNL Edema: No Peripheral Pulses WNL: Yes Integumentary: Yes: WNL Neurological: Yes: Alert, Oriented, Cran Nerves II-XII Intact ...Motor Strength: WNL Psychiatric: Yes: Alert, Oriented Labs: CBC, BMP 08/06/16 06:10 08/06/16 06:10 Discharge Summary Reason For Visit: SEVERE SEPSIS Current Active Problems Diabetes (Acute) Elevated LFTs (Acute) Obesity (Acute) Schizophrenia in remission (Acute) Severe sepsis (Acute) Procedures: Principal: ultrasound of abdomen Hospital Course: 75 y/o male who was admitted with shaking chills.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 During this adnmission he was found to have elevated LFTs and leukocytosis. He was treated with IV Rocephin and IV Flagyl and his blood cultures were negative. His LFTs normalized and US of liver showed only fatty liver without any bile duct dilatation.He is being discharged on PO Levaquin. He is a known diabetic and hypertensive.He is also a schizophrenic in remission. He will be followed in my office. - Instructions Referrals: Eduardo Galdamez MD [Primary Care Provider] - - Home Medications Comprehensive Discharge Medication List: Ambulatory Orders Clonazepam [Klonopin -] 0.5 mg PO DAILY 03/20/14 Insulin Lispro Protamin/Lispro [Humalog Mix 75-25 Kwikpen] 30 unit SQ BID Amlodipine Besylate [Norvasc -] 5 mg PO DAILY 08/16/15 Insulin Detemir [Levemir Flextouch] 20 unit SQ BID 08/16/15 Imipramine HCl [Tofranil -] 75 mg PO HS tablet 03/17/16 Levothyroxine [Synthroid -] 50 mcg PO DAILY@0700 tablet 03/17/16 Ursodiol [Actigal -] 300 mg PO BID #60 capsule 03/17/16
[2016-08-06] MEDS: LEVOTHYROXINE NA 50 MCG TABLET (FP) PO SCH (15:15)
[2016-08-06 15:22] VITALS: BP 130/70; TEMP 97.7
== END 2016-08-06 17:48 | disposition home or self-care (01) | DRG 872 ==
LOC: JER 23:35 → JERBED 08-03 05:50 → UNDOADMIN 08-03 06:08 → J8W 08-03 15:30
PROVIDERS: ADMIT Internal Medicine Hematology & Oncology; ATTEND Internal Medicine Hematology & Oncology
DX: A41.9 Sepsis, unspecified organism (principal); F20.89 Other schizophrenia; K83.0 Cholangitis; J84.9 Interstitial pulmonary disease, unspecified; R65.20 Severe sepsis without septic shock; E66.9 Obesity, unspecified; Z68.31 Body mass index [BMI] 31.0-31.9, adult; E11.9 Type 2 diabetes mellitus without complications; D72.829 Elevated white blood cell count, unspecified; E03.9 Hypothyroidism, unspecified; Z87.891 Personal history of nicotine dependence; I10 Essential (primary) hypertension
CPT/HCPCS: 36415; 71010-TC; 76705-TC; 80053; 81003; 82550; 82803; 83036; 83605; 83880; 84484; 85025; 85610; 85730; 86140; 86850; 86900; 86901; 87040; 87086; 87899; 93005; 93010; 99285-25

== ENCOUNTER 2016-09-25 19:57 | Inpatient (IN) | payer OTHER, MEDICARE ==
[2016-09-25] MEDS ORDERED: methylPREDNISolone NA SUCC 125 MG/2 ML VIAL IVPB ONE (20:10)
[2016-09-25] MEDS ORDERED: ALBUTEROL SO4 0.083% IH SOL 2.5 MG/3 ML VIAL.NEB. NEB ONE (20:13)
[2016-09-25] MEDS ORDERED: methylPREDNISolone NA SUCC 125 MG/2 ML VIAL ONE (20:13)
--- NOTE | 2016-09-25 20:21 | PDOC ---
Attending Attestation - HPI HPI: 09/25/16 20:19 76-year-old male presents with respiratory distress, tachycardia in the 150s, patient was hypoxic into the mid 80s Past medical history significant for diabetes on Humalog and levemir , hypothyroidism, interstitial lung disease, obesity, schizophrenia EKG rate of 140, A. fib with rapid ventricular response Concern forThe patient might be febrile, sepsis workup initiated 09/25/16 21:56 - Rectal temp was only 98.6. Patient responding to Combivent treatments. BNP is unremarkable -Patient does have a leukocytosis of 17,000 with a shift. Mild elevation of LFTs.-Reviewing his old charts, I see that he has a history of NIOSH cirrhosis, he had complications from gallbladder surgery within the bile duct injury 09/25/16 23:03 - Physicial Exam PE: 09/25/16 23:03 76-year-old anxious male presented hypoxic and tachycardic with diffuse wheezing ,resp distress HEENT-normocephalic, normal voice,eyes cara eomi,no pharyngeal exudates neck no jvd cvr +sinus tachycardia lungs + diffuse wheezing abd protuberant ,nontender ext +edema musculoskeletal -no deformities,from neuro alert,anxious - Critical Care Time Total Critical Care Time: 60 Critical Care Statement: The care of this patient involved high complexity decision making to prevent further life threatening deterioration of the patient 's condition and/or to evalute & treat vital organ system(s) failure or risk of failure. - Medical Decision Making 09/25/16 23:07 pt w pulmonary fibrosis,resp distress,admitted med.surg by Dr Marin
[2016-09-25] MEDS: ALBUTEROL SO4 0.083% IH SOL 2.5 MG/3 ML VIAL.NEB. NEB PRN ×2 (20:36→21:00)
[2016-09-25 20:38] LABS: BASOPHIL 0.7 % (0-2.0); MCH 32.1 pg (25.7-33.7); MCHC 34.1 g/dl (32.0-35.9); MEAN CELL VOLUME 94.1 fl (80-96); MEAN PLT VOLUME 8.1 fl (7.5-11.1); NEUTROPHILS 88.3 % (42.8-82.8); PLATELET COUNT 316 K/MM3 (134-434); RDW 13.5 % (11.9-15.9)
[2016-09-25 20:56] LABS: INR 1.15 (0.82-1.09); PROTHROMBIN TIME (PATIENT) 12.7 SEC (9.98-11.88)
[2016-09-25] MEDS ORDERED: MAGNESIUM SULF 50% (8.12 MEQ/2 ML-1 GM VIAL) IVPB ONE (21:14)
--- NOTE | 2016-09-25 21:20 | PDOC ---
History of Present Illness - General Chief Complaint: Shortness of Breath Stated Complaint: SHORTNESS OF BREATH Time Seen by Provider: 09/25/16 20:13 - History of Present Illness Initial Comments: 09/25/16 21:19 76 yo male with h/o schitzophrenia, DM, Interstitial Lung Dz, and obesity who presents with respiratory distress. Pt. presented with 2/4 SIRS criteria; tachypnea and tachycardia ( HR 150's). Pt. at bedside to assist in providing report. Pt. complains of increased SOB, and Quijano within past 24 hours. + chronic non productive cough. Denies chest pain, N/V, fevers/chills, appetite change, abdominal pain, GI symptoms, urinary complaints. Has no home O2 requirements, and denies home nebulizer treatment. reports decrease in swelling of lower extremities. Pt. has remained adequately fluid hydrated with 30oz water/day. Past History - Past Medical History Allergies/Adverse Reactions: Allergies Allergy/AdvReac Type Severity Reaction Status Date / Time No Known Allergies Allergy Verified 09/25/16 20:04 Home Medications: Ambulatory Orders Clonazepam [Klonopin -] 0.5 mg PO DAILY 03/20/14 Insulin Lispro Protamin/Lispro [Humalog Mix 75-25 Kwikpen] 30 unit SQ BID Amlodipine Besylate [Norvasc -] 5 mg PO DAILY 08/16/15 Insulin Detemir [Levemir Flextouch] 20 unit SQ BID 08/16/15 Imipramine HCl [Tofranil -] 75 mg PO HS tablet 03/17/16 Ursodiol [Actigal -] 300 mg PO BID #60 capsule 03/17/16 Levothyroxine [Synthroid -] 50 mcg PO DAILY@0700 tablet 08/06/16 Anemia: No Asthma: No Cancer: No Cardiac Disorders: No CVA: No COPD: (Pulm fibrosis) CHF: No Dementia: No Diabetes: Yes GI Disorders: No Disorders: No HTN: Yes Hypercholesterolemia: No Liver Disease: No Psychiatric Problems: Yes (ANXIETY, PANIC ATTACKS.) Seizures: No Thyroid Disease: Yes - Surgical History Abdominal Surgery: Yes Appendectomy: No Cardiac Surgery: No Cholecystectomy: Yes Lung Surgery: No Neurologic Surgery: No Orthopedic Surgery: No - Immunization History Immunization Up to Date: Yes - Psycho/Social/Smoking Cessation Hx Anxiety: No Suicidal Ideation: No Smoking History: Unknown if ever smoked Have you smoked in the past 12 months: No If you are a former smoker, when did you quit?: 1985 Cigars Per Day: 0 Hx Alcohol Use: No Drug/Substance Use Hx: No Substance Use Type: None Hx Substance Use Treatment: No Review of Systems - Review of Systems Comments:: 09/25/16 21:35 GENERAL/CONSTITUTIONAL: No fever or chills. No weakness. HEAD, EYES, EARS, NOSE AND THROAT: No change in vision. No ear pain or discharge. No sore throat. CARDIOVASCULAR: No chest pain RESPIRATORY: + cough, SOB, wheezing. No hemoptysis. GASTROINTESTINAL: No nausea, vomiting, diarrhea or constipation. GENITOURINARY: No dysuria, frequency, or change in urination. MUSCULOSKELETAL: No joint or muscle swelling or pain. No neck or back pain. SKIN: + LE swelling. No rash NEUROLOGIC: No headache, vertigo, loss of consciousness, or change in strength/ sensation. ENDOCRINE: No increased thirst. No abnormal weight change HEMATOLOGIC/LYMPHATIC: No anemia, easy bleeding, or history of blood clots. ALLERGIC/IMMUNOLOGIC: No hives or skin allergy. *Physical Exam - Vital Signs Last Vital Signs Temp Pulse Resp BP Pulse Ox 97.5 F L 137 H 30 H 134/49 86 L 09/25/16 20:02 09/25/16 20:02 09/25/16 20:02 09/25/16 20:02 09/25/16 20:02 Heart Score/ECG Review - Electrocardiogram EKG: Normal - Age Age: >/= 65 - ECG Intrepretation Rhythm: Regular Rhythm - Picacho Picacho: Normal - P and WI Prolonged WI Interval: 1st Degree Block(>20mils) ED Treatment Course - LABORATORY CBC & Chemistry Diagram: 09/25/16 20:18 09/25/16 20:18 - ADDITIONAL ORDERS Additional order review: Laboratory Results 09/25/16 09/25/16 20:18 20:18 INR 1.15 H B-Natriuretic Peptide 156.46 09/25/16 20:18 RBC 4.62 MCV 94.1 MCHC 34.1 RDW 13.5 MPV 8.1 Neutrophils % 88.3 H D Lymphocytes % 6.5 L D Monocytes % 3.5 L Eosinophils % 1.0 D Basophils % 0.7 - Medications Given in the ED: ED Medications Discontinued Medications Generic Name Dose Route Start Last Admin Trade Name Freq PRN Reason Stop Dose Admin Albuterol Sulfate 1 amp 09/25/16 20:10 09/25/16 20:36 Ventolin 0.083% Nebulizer Soln - NEB 09/25/16 20:41 1 amp Q15M PRN Administration Dyspnea Methylprednisolone Sodium Succinate 125 mg 09/25/16 20:10 09/25/16 20:36 Solu-Medrol - IVPB 09/25/16 20:11 125 mg ONCE ONE Administration Medical Decision Making - Medical Decision Making 09/25/16 22:06 Mr. Flores is a 76 yo M with h/o HTN, anxiety, DMII, and COPD who presents with SOB. Within the past 24 hours he arrived hypoxic on room air and has experienced acute respiratory distress with severe SOB, worsening Quijano, and accessory muscle use. He has had increased O2 requirements, which has necessitated respiratory therapy. He has decreased swelling in BL LE Denies any other associated symptoms. Symptoms Likely 2/2 COPD exacerbation vs. acute CHF exacerbation. ED course: CBC, CMP, CXR Blood culture, urine culture EKG albuterol, Ipratropium Methylprednisolone Azithromycin O2 NC 09/25/16 22:14 CXR reveals BL interstitial infiltrates and BL pleural effusions. 09/25/16 22:15 CBC ~leukocytosis (WBC- 17.0) Plan to admit to Med/Surg *DC/Admit/Observation/Transfer Diagnosis at time of Disposition: Chronic obstructive pulmonary disease with acute exacerbation - Discharge Dispostion Condition at time of disposition: Improved Admit: Yes - Attestations Physician Attestion: 09/25/16 23:36 I, Dr. Soren Negron, attest that this document has been prepared under my direction and personally reviewed by me in its entirety. I further attest, that it accurately reflects all work, treatment, procedures and medical decision -making performed by me.
[2016-09-25 21:30] LABS: ALBUMIN 3.7 g/dl (3.4-5.0); ALK PHOS 194 U/L (45-117); ANION GAP 9 (8-16); BILIRUBIN,TOTAL 0.8 mg/dL (0.2-1.0); CALCIUM 9.3 mg/dL (8.5-10.1); CO2 25 mmol/L (21-32); CREATININE 1.4 mg/dL (0.7-1.3); GLUCOSE,RANDOM 245 mg/dL (74-106); SGOT/AST 75 U/L (15-37); SGPT/ALT 79 U/L (12-78); TOT PROT 7.6 g/dl (6.4-8.2)
[2016-09-25 21:32] LABS: TROPONIN I 0.03 ng/ml (0.00-0.05)
[2016-09-25] MEDS ORDERED: clonazePAM 0.5 MG TABLET PO ONE (21:41)
[2016-09-25] MEDS ORDERED: MAGNESIUM SULF 50% (8.12 MEQ/2 ML-1 GM VIAL) ONE (21:44)
[2016-09-25] MEDS ORDERED: ALBUTEROL SO4 2.5/IPRATROPIUM 0.5 INH SOL 3 ML VIAL.NEB. NEB ONE ×2 (21:44→21:48)
[2016-09-25] MEDS: ALBUTEROL SO4 2.5/IPRATROPIUM 0.5 INH SOL 3 ML VIAL.NEB. NEB SCH ×3 (22:03→23:36)
[2016-09-25] MEDS ORDERED: AZITHROMYCIN IVPB 500 MG in DEXTROSE 5%-WATER - 250 ML IVPB ONE (22:04)
[2016-09-25] MEDS ORDERED: CEFTRIAXONE 1 GM in DEXTROSE 5%-WATER - 50 ML IVPB ONE (22:04)
[2016-09-25] MEDS ORDERED: clonazePAM 0.5 MG TABLET ONE (22:05)
[2016-09-25] MEDS ORDERED: CEFTRIAXONE 50 ML ONE (23:32)
[2016-09-25] MEDS ORDERED: AZITHROMYCIN IVPB 250 ML IVPB ONE (23:32)
[2016-09-26] MEDS: ALBUTEROL SO4 2.5/IPRATROPIUM 0.5 INH SOL 3 ML VIAL.NEB. NEB SCH ×3 (00:21→23:15)
[2016-09-26 05:18] VITALS: BMI 32.6
[2016-09-26] MEDS: ALBUTEROL SO4 0.083% IH SOL 2.5 MG/3 ML VIAL.NEB. NEB SCH ×2 (06:20→11:41)
[2016-09-26] MEDS: LEVOTHYROXINE NA 50 MCG TABLET (FP) PO SCH (06:25)
[2016-09-26] MEDS: INSULIN SLIDING SCALE (NOVOLOG) 1 VIAL SQ SCH ×3 (06:53→17:03)
[2016-09-26] MEDS ORDERED: INSULIN (NOVOLOG) ASPART 100 UNITS/ML 10ML VIAL SQ ONE (07:00)
[2016-09-26 07:10] LABS: BASOPHIL 0.3 % (0-2.0); MCH 32.8 pg (25.7-33.7); MCHC 34.4 g/dl (32.0-35.9); MEAN CELL VOLUME 95.3 fl (80-96); MEAN PLT VOLUME 8.2 fl (7.5-11.1); NEUTROPHILS 91.6 % (42.8-82.8); PLATELET COUNT 276 K/MM3 (134-434); RDW 13.3 % (11.9-15.9)
[2016-09-26] MEDS: LEVOFLOXACIN 500 MG IVPB 100 ML IVPB SCH (08:10)
[2016-09-26] MEDS: methylPREDNISolone NA SUCC 40 MG/1 ML VIAL IVPB SCH ×4 (08:10→22:27)
[2016-09-26] MEDS: cefTRIAXone 1 GM/50 ML BAG (PRE-DOCKED) IVPB SCH (09:38)
[2016-09-26] MEDS ORDERED: CEFTRIAXONE 1 GM in DEXTROSE 5%-WATER - 50 ML IVPB SCH (10:00)
[2016-09-26] MEDS ORDERED: clonazePAM 0.5 MG TABLET PO SCH (10:00)
--- NOTE | 2016-09-26 12:04 | CON.PULM ---
Consult Consult Specialty:: PULMONARY Referred by:: Dr. Galdamez Reason for Consultation:: shortness of breath - History of Present Illness Chief Complaint: shortness of breath History of Present Illness: 76yo male with h/o interstitial lung disease, DM, schizophrenia who was admitted with worsening shortness of breath. Denies any chest pain or palpitations but with nonproductive cough and wheezing. No fevers, chils or sweats. No leg swelling but with orthopnea. No sick contacts or recent travel. Does not use home O2. 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 Noted to be diffusely wheezing in the ER, started on antibiotics and steroids with slight improvement. - History Source History Provided By: Patient, Medical Record Limitations to Obtaining History: Language Barrier - Past Medical History Cardio/Vascular: Yes: HTN. No: Other Pulmonary: Yes: Pneumonia, Pulmonary Fibrosis Gastrointestinal: Yes: Gastritis, Other (COMPLICATIONS FROM GB SURGERY (BILE DUCT INJURY) PROBABLE BILE DUCT SURGERY) Hepatobiliary: Yes: Other (fatty liver, BACK CIRRHOSIS) Psych: Yes: Anxiety, Depression, Schizophrenia Endocrine: Yes: Diabetes Mellitus, Hypothyroidism - Past Surgical History Past Surgical History: Yes: Cholecystectomy - Alcohol/Substance Use Hx Alcohol Use: No History of Substance Use: reports: None - Smoking History Smoking history: Unknown if ever smoked Have you smoked in the past 12 months: No If you are a former smoker, when did you quit?: 1985 - Social History ADL: Independent History of Recent Travel: No Home Medications - Allergies Allergies/Adverse Reactions: Allergies Allergy/AdvReac Type Severity Reaction Status Date / Time No Known Allergies Allergy Verified 09/25/16 20:04 - Home Medications Home Medications: Ambulatory Orders Clonazepam [Klonopin -] 0.5 mg PO DAILY 03/20/14 Insulin Lispro Protamin/Lispro [Humalog Mix 75-25 Kwikpen] 30 unit SQ BID Amlodipine Besylate [Norvasc -] 5 mg PO DAILY 08/16/15 Insulin Detemir [Levemir Flextouch] 20 unit SQ BID 08/16/15 Imipramine HCl [Tofranil -] 75 mg PO HS tablet 03/17/16 Ursodiol [Actigal -] 300 mg PO BID #60 capsule 03/17/16 Levothyroxine [Synthroid -] 50 mcg PO DAILY@0700 tablet 08/06/16 Review of Systems - Review of Systems Constitutional: denies: Chills, Fever Eyes: denies: Recent Change in Vision HENT: denies: Nasal Congestion, Throat Pain Neck: denies: Stiffness, Tenderness Cardiovascular: reports: Shortness of Breath. denies: Chest Pain, Edema, Palpitations Respiratory: reports: Cough, Exercise Intolerance, SOB, SOB on Exertion, Wheezing. denies: Hemoptysis Gastrointestinal: denies: Abdominal Pain, Nausea, Vomiting Genitourinary: denies: Dysuria, Hematuria Neurological: denies: Dizziness, Headache Endocrine: denies: Unexplained Weight Gain, Unexplained Weight Loss Physical Exam Vital Sings: Vital Signs Temperature 97.7 F 09/26/16 06:00 Pulse Rate 93 H 09/26/16 10:51 Respiratory Rate 20 09/26/16 06:00 Blood Pressure 123/66 09/26/16 06:00 O2 Sat by Pulse Oximetry (%) 97 09/26/16 10:51 Constitutional: Yes: Anxious, Mild Distress (tachypneic with exertion) Eyes: Yes: Conjunctiva Clear, EOM Intact HENT: Yes: Atraumatic, Normocephalic Neck: Yes: Supple, Trachea Midline Cardiovascular: Yes: Regular Rate and Rhythm, Murmur (systolic at base) Respiratory: Yes: Rhonchi ...Clubbing: No Gastrointestinal: Yes: Normal Bowel Sounds, Soft. No: Tenderness Edema: No Neurological: Yes: Alert, Oriented Labs: CBC, BMP 09/26/16 06:05 Imaging - Results Chest X-ray: Report Reviewed, Image Reviewed (bilateral infiltrates) Problem List - Problems (1) Interstitial lung disease Code(s): J84.9 - INTERSTITIAL PULMONARY DISEASE, UNSPECIFIED (2) Acute respiratory failure with hypoxia Code(s): J96.01 - ACUTE RESPIRATORY FAILURE WITH HYPOXIA (3) Lactic acidosis Code(s): E87.2 - ACIDOSIS (4) Anxiety Code(s): F41.9 - ANXIETY DISORDER, UNSPECIFIED (5) Acute kidney injury Code(s): N17.9 - ACUTE KIDNEY FAILURE, UNSPECIFIED Assessment/Plan Acute Hypoxic Respiratory Failure Interstitial Lung Disease r/o Pneumonia Acute Kidney Injury Aortic Stenosis LV Diastolic Dysfunction Schizophrenia Anxiety - agree with IV medrol - inhaled bronchodilators standing and PRN - O2 to keep Sp2 >90% - empiric antibiotics - f/u cultures - gentle IVF - monitor urine output, creatinine - trend lactate - may need CT chest noncontrast when more stable - BiPAP as needed to assist in work of breathing - DVT prophylaxis Thank you for this consult Jorge Alberto De La Garza MD
[2016-09-26] MEDS ORDERED: ALBUTEROL SO4 0.083% IH SOL 2.5 MG/3 ML VIAL.NEB. NEB PRN (12:11)
[2016-09-26] MEDS: SODIUM CHLORIDE 1,000 ML IV SCH (12:32)
--- NOTE | 2016-09-26 13:23 | PN ---
Progress Note (short form) - Note Progress Note: ID Consult dictated Acute exacerbation chronic lung disease Possible pneumonia ILD Chronically elevated LFTs, possible biliary sepsis Pending sepsis workup, empiric ceftriaxone/ levaquin
--- NOTE | 2016-09-26 15:35 | CONS ---
INFECTIOUS DISEASE CONSULTATION DATE OF CONSULTATION: DATE OF DICTATION: 09/26/2016 HISTORY OF PRESENT ILLNESS: The patient is a 76-year-old male evaluated for possible sepsis. He has a history of chronic interstitial lung disease. He was admitted to the hospital with labored breathing, to the emergency room. He was noted to be short of breath, tachycardic, and hypoxemic. telemetry monitor revealed atrial fibrillation with rapid ventricular response. In addition, he was noted to have an elevated white blood cell count, 17,000. Chest x-ray showed chronic interstitial lung disease with possible superimposed pneumonia. He was empirically treated with ceftriaxone and Levaquin. The patient is awake and alert. He complains of shortness of breath. He denies any cough or sputum production. Denies abdominal pain, vomiting, or diarrhea. He has been afebrile. According to the home medication list, it does not appear that he is on chronic steroids. He was recently hospitalized in July 2016, with sepsis. At that time, cultures were unrevealing. He has a history of biliary tract disease. He is status post cholecystectomy with a history of bile duct injury. He has chronically elevated liver enzymes. PAST MEDICAL HISTORY: Positive for chronic interstitial lung disease, COPD, diabetes mellitus, schizophrenia, morbid obesity, history of E. coli sepsis from February 2016, possibly from biliary tract source. Urine culture at that time was negative. ALLERGIES: No known allergies. MEDICATIONS: Include Klonopin, insulin, Norvasc, Tofranil, Actigall, Synthroid. SOCIAL HISTORY: Lives at home with family members, non-smoker, nondrinker. SYSTEMS REVIEW: Neurologic: No loss of consciousness, seizure activity, focal weakness. Cardiac: Negative chest pain or palpitations. Respiratory: As per HPI. Gastrointestinal: Negative vomiting or diarrhea. Genitourinary: Negative for urinary tract infection. LABORATORY DATA: White count on admission 17,000, presently 12,000; hematocrit 39.9; platelet count 276. BUN is 17, creatinine 1.4. Urinalysis pending. Chest x-ray shows chronic interstitial lung disease. PHYSICAL EXAMINATION: General: He is awake and alert. He is in moderate distress secondary to his labored breathing. Vital Signs: Temperature 98.1; blood pressure 116/59; pulse 91, regular; respirations 23 per minute. HEENT: Sclerae are anicteric. Heart: Sounds S1, S2. Lungs: Rales bilaterally, upper and lower lung cody. Abdomen: Obese, soft, nontender. Extremities: Negative for edema. IMPRESSION: 1. Acute exacerbation of lung chronic disease. 2. Possible pneumonia. 3. Chronic interstitial lung disease. 4. Chronically elevated liver enzymes. Clinical presentation consistent with acute decompensation of his interstitial lung disease, cannot rule out superimposed pulmonary infection. The patient has had a history of recurrent ascending cholangitis secondary to a remote history of common bile duct laceration during cholecystectomy with implantation in the duodenum. Pending sepsis workup will empirically continue treatment with ceftriaxone and Levaquin for coverage of pulmonary and biliary tract pathogens, pulmonary evaluation. Further recommendations pending cultures. Will follow. Thank you for the kind referral. ARMIDA VELASQUEZ M.D. [id number]
--- NOTE | 2016-09-26 15:58 | EKG ---
Test Reason : Blood Pressure : / mmHG Vent. Rate : 099 BPM Atrial Rate : 099 BPM P-R Int : 216 ms QRS Dur : 100 ms QT Int : 366 ms P-R-T Axes : 024 -01 015 degrees QTc Int : 469 ms SINUS RHYTHM WITH 1ST DEGREE A-V BLOCK MINIMAL VOLTAGE CRITERIA FOR LVH, MAY BE NORMAL VARIANT EARLY R WAVE TRANSITION IN V2 WITH EMBRYONIC Q WAVE, CANNOT EXCLUDE ASWMI OF INDETERMINATE AGE BORDERLINE ECG CORELATE CLINICALLY. Confirmed by MICHAEL GALLARDO MD ([id number]) on 09/26/2016 3:58:10 PM Referred By: ALLYN OSCAR Confirmed By:MICHAEL GALLARDO MD
--- NOTE | 2016-09-26 16:25 | EKG ---
Test Reason : Blood Pressure : / mmHG Vent. Rate : 103 BPM Atrial Rate : 103 BPM P-R Int : 220 ms QRS Dur : 096 ms QT Int : 334 ms P-R-T Axes : 022 001 021 degrees QTc Int : 437 ms SINUS TACHYCARDIA WITH 1ST DEGREE A-V BLOCK WHEN COMPARED WITH ECG OF 25-SEP-2016 20:16, SINUS RHYTHM HAS REPLACED ATRIAL FIBRILLATION Confirmed by MICHAEL GALLARDO MD ([id number]) on 09/26/2016 4:25:24 PM Referred By: Confirmed By:MICHAEL GALLARDO MD
--- NOTE | 2016-09-26 16:34 | EKG ---
Test Reason : Blood Pressure : / mmHG Vent. Rate : 140 BPM Atrial Rate : 141 BPM P-R Int : 000 ms QRS Dur : 086 ms QT Int : 284 ms P-R-T Axes : 000 -02 025 degrees QTc Int : 433 ms SUBOPTIMAL STUDY, BASE LINE ARTIFACTS BASIC RHYTHM IS UNCERTAIN, PROBABLY ATRIAL FIBRILLATION WITH RAPID VENTRICULAR RESPONSE OCVASIONAL VEBS. ABNORMAL ECG WHEN COMPARED WITH ECG OF 03-AUG-2016 00:22, ATRIAL FIBRILLATION HAS REPLACED SINUS RHYTHM CORELATE CLINICALLY Confirmed by MICHAEL GALLARDO MD ([id number]) on 09/26/2016 4:34:25 PM Referred By: Confirmed By:MICHAEL GALLARDO MD
--- NOTE | 2016-09-26 19:57 | HP ---
Admitting History and Physical - Primary Care Physician PCP: Eduardo Galdamez - Admission Chief Complaint: Shaking chills and SOB History of Present Illness: As per over the last 3 to 4 weeks has been c/o SOB and weakness. A week ago went shopping but had to sit on the stairs many times.Has been sitting at home most of the time. Yesterday started c/o shaking chills and came to ED with help of their neighbour and was [place] [id number] and elevated LFTs.He is a known case of interstitial lung disease and also gets repeated attacks of ascending cholangitis due to implantation of the CBD into the jejunum after laceration of CBD during cholecystectomy.He was treated with IV Rocephin, IV Zithromax, IV Solu medrol and inhalation treatment. History Source: Family Member Limitations to Obtaining History: Poor Historian - Past Medical History Cardiovascular: Yes: HTN. No: Other Pulmonary: Yes: Pneumonia, Pulmonary Fibrosis, Other (interstitial pulmonary fibrosis) Gastrointestinal: Yes: Gastritis, Other (CBD implanteed into the jejunum due to laceration during cholecystectomy) Hepatobiliary: Yes: Other (fatty liver, BACK CIRRHOSIS) Psych: Yes: Anxiety, Depression, Schizophrenia Endocrine: Yes: Diabetes Mellitus, Hypothyroidism - Past Surgical History Past Surgical History: Yes: Cholecystectomy - Smoking History Smoking history: Never smoked Have you smoked in the past 12 months: No If you are a former smoker, when did you quit?: 1985 - Alcohol/Substance Use Hx Alcohol Use: No History of Substance Use: reports: None - Social History Usual Living Arrangement: Yes: With Spouse ADL: Independent History of Recent Travel: No Home Medications - Allergies Allergies/Adverse Reactions: Allergies Allergy/AdvReac Type Severity Reaction Status Date / Time No Known Allergies Allergy Verified 09/25/16 20:04 - Home Medications Home Medications: Ambulatory Orders Clonazepam [Klonopin -] 0.5 mg PO DAILY 03/20/14 Insulin Lispro Protamin/Lispro [Humalog Mix 75-25 Kwikpen] 30 unit SQ BID Amlodipine Besylate [Norvasc -] 5 mg PO DAILY 08/16/15 Insulin Detemir [Levemir Flextouch] 20 unit SQ BID 08/16/15 Imipramine HCl [Tofranil -] 75 mg PO HS tablet 03/17/16 Ursodiol [Actigal -] 300 mg PO BID #60 capsule 03/17/16 Levothyroxine [Synthroid -] 50 mcg PO DAILY@0700 tablet 08/06/16 Review of Systems - Review of Systems Constitutional: reports: Chills, Diaphoresis Eyes: reports: No Symptoms HENT: reports: No Symptoms Neck: reports: No Symptoms Cardiovascular: reports: No Symptoms Respiratory: reports: SOB Gastrointestinal: reports: No Symptoms Genitourinary: reports: No Symptoms Musculoskeletal: reports: No Symptoms Integumentary: reports: No Symptoms Neurological: reports: No Symptoms Endocrine: reports: No Symptoms Hematology/Lymphatic: reports: No Symptoms Psychiatric: reports: Anxiety, Depression Physical Examination Vital Signs: Vital Signs Temperature 99.1 F 09/26/16 14:00 Pulse Rate 105 H 09/26/16 15:08 Respiratory Rate 22 09/26/16 15:08 Blood Pressure 123/61 09/26/16 15:08 O2 Sat by Pulse Oximetry (%) 97 09/26/16 10:51 Constitutional: Yes: Anxious, Mild Distress Eyes: Yes: Conjunctiva Clear, EOM Intact HENT: Yes: WNL Neck: Yes: WNL Cardiovascular: Yes: Regular Rate and Rhythm, S1, S2 Respiratory: Yes: Regular, CTA Bilaterally, On Nasal O2 Gastrointestinal: Yes: Normal Bowel Sounds, Soft Renal/: Yes: WNL Breast(s): Yes: WNL Musculoskeletal: Yes: WNL Extremities: Yes: WNL Edema: No Peripheral Pulses WNL: Yes Integumentary: Yes: WNL Neurological: Yes: Alert, Oriented ...Motor Strength: WNL Psychiatric: Yes: Alert, Oriented Labs: CBC, BMP 09/26/16 06:05 Imaging - Results X-ray: Report Reviewed, Image Reviewed EKG: Report Reviewed, Image Reviewed Problem List - Problems (1) Acute respiratory failure with hypoxia Assessment/Plan: Known case of Interstitial lung disease with possible superimposed Pneumonia Code(s): J96.01 - ACUTE RESPIRATORY FAILURE WITH HYPOXIA (2) Diabetes Code(s): E11.9 - TYPE 2 DIABETES MELLITUS WITHOUT COMPLICATIONS Qualifiers: Diabetes mellitus macular edema: without macular edema Diabetes mellitus snf insulin use: with snf use (3) Elevated LFTs Assessment/Plan: Elevated LFTs could be due to ascending cholangitis Code(s): R79.89 - OTHER SPECIFIED ABNORMAL FINDINGS OF BLOOD CHEMISTRY (4) Obesity Code(s): E66.9 - OBESITY, UNSPECIFIED (5) Schizophrenia in remission Code(s): F20.9 - SCHIZOPHRENIA, UNSPECIFIED Assessment/Plan Imp:Acute respiratory failure due to pneumonia superimposed on interstitial lung disease. Possible ascending cholangitis. Choledochojejunostomy. Plan: Inhalation treatment withAlbuterol. IV Levaquin and Rocephin IV steroids Regular Insulin coverage
[2016-09-26] MEDS: clonazePAM 0.5 MG TABLET PO SCH (22:27)
[2016-09-26] MEDS: IMIPRAMINE HCL 25 MG TABLET PO SCH (22:47)
[2016-09-27] MEDS: methylPREDNISolone NA SUCC 40 MG/1 ML VIAL IVPB SCH ×3 (02:49→17:18)
[2016-09-27] MEDS: INSULIN SLIDING SCALE (NOVOLOG) 1 VIAL SQ SCH ×3 (06:39→17:18)
[2016-09-27] MEDS: LEVOTHYROXINE NA 50 MCG TABLET (FP) PO SCH (06:40)
[2016-09-27] MEDS: ALBUTEROL SO4 2.5/IPRATROPIUM 0.5 INH SOL 3 ML VIAL.NEB. NEB SCH ×4 (06:45→23:55)
[2016-09-27] MEDS ORDERED: INSULIN (NOVOLOG) ASPART 100 UNITS/ML 10ML VIAL ONE ×2 (06:54→12:24)
[2016-09-27 07:46] LABS: MCH 32.1 pg (25.7-33.7); MCHC 33.8 g/dl (32.0-35.9); MEAN PLT VOLUME 8.2 fl (7.5-11.1); PLATELET COUNT 275 K/MM3 (134-434); RDW 13.7 % (11.9-15.9)
[2016-09-27 08:13] LABS: ALBUMIN 3.1 g/dl (3.4-5.0); SGOT/AST 31 U/L (15-37)
[2016-09-27 08:19] LABS: ALK PHOS 124 U/L (45-117); ANION GAP 8 (8-16); BILIRUBIN,TOTAL 0.8 mg/dL (0.2-1.0); CALCIUM 8.5 mg/dL (8.5-10.1); CO2 25 mmol/L (21-32); MAGNESIUM 2.4 mg/dL (1.8-2.4); PHOSPHOROUS 3.2 mg/dL (2.5-4.9); SGPT/ALT 52 U/L (12-78); TOT PROT 6.4 g/dl (6.4-8.2)
[2016-09-27 08:20] LABS: WHITE BLOOD COUNT 32.9 K/mm3 (4.0-10.0)
[2016-09-27 09:01] LABS: GLUCOSE,RANDOM 326 mg/dL (74-106)
[2016-09-27] MEDS: cefTRIAXone 1 GM/50 ML BAG (PRE-DOCKED) IVPB SCH (09:09)
[2016-09-27] MEDS: clonazePAM 0.5 MG TABLET PO SCH ×2 (09:09→21:47)
[2016-09-27] MEDS: LEVOFLOXACIN 500 MG IVPB 100 ML IVPB SCH (09:09)
[2016-09-27 10:54] LABS: ANISOCYTOSIS 1+
--- NOTE | 2016-09-27 12:19 | PN ---
Progress Note, Physician History of Present Illness: OOB in chair No complaints Denies abdominal pain Slightly tachypneic on 2L NC O2 sat 98% Marked increase in WBC on steroids No diarrhea - Current Medication List Current Medications: Active Medications Albuterol Sulfate (Ventolin 0.083% Nebulizer Soln -) 1 amp NEB Q4H PRN PRN Reason: SHORT OF BREATH/WHEEZING Albuterol/Ipratropium (Duoneb -) 1 amp NEB QIDR [facility] Last Admin: 09/27/16 12:08 Dose: 1 amp Ceftriaxone Sodium (Rocephin 1gm Ivpb (Pre-Docked)) 1 gm IVPB DAILY [facility] Last Admin: 09/27/16 09:09 Dose: 1 gm Clonazepam (Klonopin -) 0.5 mg PO BID [facility] Last Admin: 09/27/16 09:09 Dose: 0.5 mg Levofloxacin (Levaquin 500 Mg Premixed Ivpb -) 100 mls @ 100 mls/hr IVPB DAILY@ 0800 [facility] Last Admin: 09/27/16 09:09 Dose: 100 mls/hr Sodium Chloride (Normal Saline -) 1,000 mls @ 50 mls/hr IV ASDIR [facility] Last Admin: 09/26/16 12:32 Dose: 50 mls/hr Imipramine HCl (Tofranil -) 75 mg PO HS [facility] Last Admin: 09/26/16 22:47 Dose: 75 mg Insulin Aspart (Novolog Vial Sliding Scale -) 1 vial SQ TIDAC [facility] PRN Reason: Protocol Last Admin: 09/27/16 06:39 Dose: 14 units Levothyroxine Sodium (Synthroid -) 50 mcg PO DAILY@0700 [facility] Last Admin: 09/27/16 06:40 Dose: 50 mcg Methylprednisolone Sodium Succinate (Solu-Medrol -) 40 mg IVPB Q8H-IV HUNG - Objective Vital Signs: Vital Signs Temperature 97.9 F 09/27/16 06:00 Pulse Rate 84 09/27/16 12:08 Respiratory Rate 20 09/27/16 06:00 Blood Pressure 137/72 09/27/16 06:00 O2 Sat by Pulse Oximetry (%) 98 09/27/16 12:08 Constitutional: Yes: No Distress Eyes: Yes: Conjunctiva Clear Cardiovascular: Yes: Regular Rate and Rhythm, S1, S2 Respiratory: Yes: Other (Bilateral rales) Gastrointestinal: Yes: Normal Bowel Sounds, Soft. No: Tenderness Labs: CBC, BMP 09/27/16 06:28 09/27/16 06:28 INR, PTT INR 1.15 (0.82-1.09) H 09/25/16 20:18 Assessment/Plan Exacerbation chronic lung disease Possible pneumonia Possible recurrent cholangitis Leukocytosis ? steroid-induced Await c/s Continue empiric ceftriaxone/ levaquin
[2016-09-27] MEDS: SODIUM CHLORIDE 1,000 ML IV SCH (12:24)
--- NOTE | 2016-09-27 14:21 | PN ---
Progress Note, Physician History of Present Illness: PULMONARY ALERT,OOB-CHAIR,-RESP DISTRESS - Current Medication List Current Medications: Active Medications Albuterol Sulfate (Ventolin 0.083% Nebulizer Soln -) 1 amp NEB Q4H PRN PRN Reason: SHORT OF BREATH/WHEEZING Albuterol/Ipratropium (Duoneb -) 1 amp NEB QIDR [facility] Last Admin: 09/27/16 12:08 Dose: 1 amp Ceftriaxone Sodium (Rocephin 1gm Ivpb (Pre-Docked)) 1 gm IVPB DAILY [facility] Last Admin: 09/27/16 09:09 Dose: 1 gm Clonazepam (Klonopin -) 0.5 mg PO BID [facility] Last Admin: 09/27/16 09:09 Dose: 0.5 mg Levofloxacin (Levaquin 500 Mg Premixed Ivpb -) 100 mls @ 100 mls/hr IVPB DAILY@ 0800 [facility] Last Admin: 09/27/16 09:09 Dose: 100 mls/hr Sodium Chloride (Normal Saline -) 1,000 mls @ 50 mls/hr IV ASDIR [facility] Last Admin: 09/27/16 12:24 Dose: 50 mls/hr Imipramine HCl (Tofranil -) 75 mg PO HS [facility] Last Admin: 09/26/16 22:47 Dose: 75 mg Insulin Aspart (Novolog Vial Sliding Scale -) 1 vial SQ TIDAC [facility] PRN Reason: Protocol Last Admin: 09/27/16 12:25 Dose: 14 units Levothyroxine Sodium (Synthroid -) 50 mcg PO DAILY@0700 [facility] Last Admin: 09/27/16 06:40 Dose: 50 mcg Methylprednisolone Sodium Succinate (Solu-Medrol -) 40 mg IVPB Q8H-IV [facility] - Objective Vital Signs: Vital Signs Temperature 97.9 F 09/27/16 06:00 Pulse Rate 84 09/27/16 12:08 Respiratory Rate 20 09/27/16 06:00 Blood Pressure 137/72 09/27/16 06:00 O2 Sat by Pulse Oximetry (%) 98 09/27/16 12:08 Constitutional: Yes: Well Nourished, Calm Eyes: Yes: WNL HENT: Yes: WNL Neck: Yes: WNL Cardiovascular: Yes: Regular Rate and Rhythm, S1, S2 Respiratory: Yes: Rales (KLAPESH CRACKLES 1/2 UP) Gastrointestinal: Yes: Normal Bowel Sounds, Soft Extremities: Yes: WNL Edema: LLE: 1+, RLE: 1+ Labs: CBC, BMP 09/27/16 06:28 09/27/16 06:28 INR, PTT INR 1.15 (0.82-1.09) H 09/25/16 20:18 Assessment/Plan Problem List - Problems (1) Interstitial lung disease Code(s): J84.9 - INTERSTITIAL PULMONARY DISEASE, UNSPECIFIED (2) Acute respiratory failure with hypoxia Code(s): J96.01 - ACUTE RESPIRATORY FAILURE WITH HYPOXIA (3) Lactic acidosis Code(s): E87.2 - ACIDOSIS resolved (4) Anxiety Code(s): F41.9 - ANXIETY DISORDER, UNSPECIFIED (5) Acute kidney injury Code(s): N17.9 - ACUTE KIDNEY FAILURE, UNSPECIFIED Assessment/Plan Acute Hypoxic Respiratory Failure Interstitial Lung Disease r/o Pneumonia Acute Kidney Injury Aortic Stenosis LV Diastolic Dysfunction Schizophrenia Anxiety - IV medrol same dose - inhaled bronchodilators standing and PRN - O2 to keep Sp2 >90% - antibiotics - IVF - monitor urine output, creatinine - CT chest noncontrast - BiPAP as needed to assist in work of breathing - DVT prophylaxis DR WEST
--- NOTE | 2016-09-27 21:15 | PN ---
Progress Note, Physician History of Present Illness: Denies any cough or expectoration but c/o SOB. No shaking chills. Severe leukocytosis most likely due to steroids - Current Medication List Current Medications: Active Medications Albuterol Sulfate (Ventolin 0.083% Nebulizer Soln -) 1 amp NEB Q4H PRN PRN Reason: SHORT OF BREATH/WHEEZING Albuterol/Ipratropium (Duoneb -) 1 amp NEB QIDR [facility] Last Admin: 09/27/16 18:00 Dose: 1 amp Ceftriaxone Sodium (Rocephin 1gm Ivpb (Pre-Docked)) 1 gm IVPB DAILY [facility] Last Admin: 09/27/16 09:09 Dose: 1 gm Clonazepam (Klonopin -) 0.5 mg PO BID [facility] Last Admin: 09/27/16 09:09 Dose: 0.5 mg Levofloxacin (Levaquin 500 Mg Premixed Ivpb -) 100 mls @ 100 mls/hr IVPB DAILY@ 0800 [facility] Last Admin: 09/27/16 09:09 Dose: 100 mls/hr Sodium Chloride (Normal Saline -) 1,000 mls @ 50 mls/hr IV ASDIR [facility] Last Admin: 09/27/16 12:24 Dose: 50 mls/hr Imipramine HCl (Tofranil -) 75 mg PO HS [facility] Last Admin: 09/26/16 22:47 Dose: 75 mg Insulin Aspart (Novolog Vial Sliding Scale -) 1 vial SQ TIDAC [facility] PRN Reason: Protocol Last Admin: 09/27/16 17:18 Dose: 14 units Levothyroxine Sodium (Synthroid -) 50 mcg PO DAILY@0700 [facility] Last Admin: 09/27/16 06:40 Dose: 50 mcg Methylprednisolone Sodium Succinate (Solu-Medrol -) 40 mg IVPB Q8H-IV [facility] Last Admin: 09/27/16 17:18 Dose: 40 mg - Objective Vital Signs: Vital Signs Temperature 97.6 F 09/27/16 18:00 Pulse Rate 89 09/27/16 18:00 Respiratory Rate 16 09/27/16 18:00 Blood Pressure 118/58 09/27/16 18:00 O2 Sat by Pulse Oximetry (%) 98 09/27/16 12:08 Constitutional: Yes: Anxious, Moderate Distress Eyes: Yes: Conjunctiva Clear, EOM Intact HENT: Yes: WNL Neck: Yes: Supple Cardiovascular: Yes: Regular Rate and Rhythm, S1, S2 Respiratory: Yes: Regular, CTA Bilaterally Gastrointestinal: Yes: Normal Bowel Sounds, Soft Genitourinary: Yes: WNL Breast(s): Yes: WNL Musculoskeletal: Yes: Back Pain Extremities: Yes: WNL Edema: No Peripheral Pulses WNL: Yes Integumentary: Yes: WNL Neurological: Yes: Alert, Oriented ...Motor Strength: WNL Psychiatric: Yes: Alert, Oriented Labs: CBC, BMP 09/27/16 06:28 09/27/16 06:28 INR, PTT INR 1.15 (0.82-1.09) H 09/25/16 20:18 Problem List - Problems (1) Acute respiratory failure with hypoxia Assessment/Plan: SOB has improved, there appears to be a component of anxiety Code(s): J96.01 - ACUTE RESPIRATORY FAILURE WITH HYPOXIA (2) Diabetes Assessment/Plan: BGM have been high due to steroids Code(s): E11.9 - TYPE 2 DIABETES MELLITUS WITHOUT COMPLICATIONS Qualifiers: Diabetes mellitus macular edema: without macular edema Diabetes mellitus jail insulin use: with intermediate designer use (3) Elevated LFTs Code(s): R79.89 - OTHER SPECIFIED ABNORMAL FINDINGS OF BLOOD CHEMISTRY (4) Obesity Code(s): E66.9 - OBESITY, UNSPECIFIED (5) Schizophrenia in remission Code(s): F20.9 - SCHIZOPHRENIA, UNSPECIFIED (6) Anxiety Code(s): F41.9 - ANXIETY DISORDER, UNSPECIFIED (7) Ascending cholangitis Assessment/Plan: Came with elevared LFTs which have improved since admission, Cultures are all negative Code(s): K83.0 - CHOLANGITIS (8) Diabetes 1.5, managed as type 1 Code(s): E13.9 - OTHER SPECIFIED DIABETES MELLITUS WITHOUT COMPLICATIONS (9) Fatty (change of) liver, not elsewhere classified Code(s): K76.0 - FATTY (CHANGE OF) LIVER, NOT ELSEWHERE CLASSIFIED (10) Hypothyroid Code(s): E03.9 - HYPOTHYROIDISM, UNSPECIFIED (11) Interstitial lung disease Code(s): J84.9 - INTERSTITIAL PULMONARY DISEASE, UNSPECIFIED (12) Pneumonia Assessment/Plan: Difficult to say if there is a pneumonia but will get a CT scan ches in AM as per Code(s): J18.9 - PNEUMONIA, UNSPECIFIED ORGANISM Qualifiers: Pneumonia type: due to unspecified organism Laterality: unspecified laterality Lung location: unspecified part of lung Qualified Code(s) : J18.9 - Pneumonia, unspecified organism Assessment/Plan IMP:Acute bronchitis vs Pneumonia. Ascending cholangitis, Interstitial lung disease Diabetes Mellitus type ll Anxiety disorder Fatty liver Hypertension Plan cont IV Levaquin and Rocephin. CT scan chest in AM.
[2016-09-27] MEDS: IMIPRAMINE HCL 25 MG TABLET PO SCH (21:47)
[2016-09-27] MEDS: PANTOPRAZOLE 40 MG TABLET (FP) PO SCH (21:47)
[2016-09-28] MEDS: methylPREDNISolone NA SUCC 40 MG/1 ML VIAL IVPB SCH ×3 (02:50→17:15)
[2016-09-28] MEDS: INSULIN SLIDING SCALE (NOVOLOG) 1 VIAL SQ SCH ×3 (06:28→17:12)
[2016-09-28] MEDS: LEVOTHYROXINE NA 50 MCG TABLET (FP) PO SCH (06:28)
[2016-09-28] MEDS ORDERED: INSULIN (NOVOLOG) ASPART 100 UNITS/ML 10ML VIAL ONE ×2 (06:51→18:12)
[2016-09-28] MEDS: ALBUTEROL SO4 2.5/IPRATROPIUM 0.5 INH SOL 3 ML VIAL.NEB. NEB SCH ×4 (06:52→23:15)
[2016-09-28 07:26] LABS: MCH 32.3 pg (25.7-33.7); MCHC 33.7 g/dl (32.0-35.9); MEAN CELL VOLUME 95.9 fl (80-96); MEAN PLT VOLUME 8.4 fl (7.5-11.1); PLATELET COUNT 268 K/MM3 (134-434); RDW 13.6 % (11.9-15.9); WHITE BLOOD COUNT 26.5 K/mm3 (4.0-10.0)
[2016-09-28 07:48] LABS: ALBUMIN 2.9 g/dl (3.4-5.0); ALK PHOS 108 U/L (45-117); ANION GAP 10 (8-16); BILIRUBIN,TOTAL 0.4 mg/dL (0.2-1.0); CALCIUM 8.5 mg/dL (8.5-10.1); CO2 24 mmol/L (21-32); SGOT/AST 26 U/L (15-37); SGPT/ALT 44 U/L (12-78)
[2016-09-28 07:50] LABS: GLUCOSE,RANDOM 335 mg/dL (74-106)
[2016-09-28] MEDS: LEVOFLOXACIN 500 MG IVPB 100 ML IVPB SCH (08:28)
[2016-09-28] MEDS: PANTOPRAZOLE 40 MG TABLET (FP) PO SCH (10:18)
[2016-09-28] MEDS: clonazePAM 0.5 MG TABLET PO SCH ×2 (10:18→23:40)
[2016-09-28] MEDS: cefTRIAXone 1 GM/50 ML BAG (PRE-DOCKED) IVPB SCH (10:18)
[2016-09-28 11:03] LABS: PLATELET ESTIMATE ADEQUATE (NORMAL)
--- NOTE | 2016-09-28 12:05 | PN ---
Progress Note (short form) - Note Progress Note: PULMONARY Breathing slightly improved. Still with nonproductive cough. CT chest done this AM showing airspace disease superimposed on interstitial changes. Last Vital Signs Temp Pulse Resp BP Pulse Ox 97.9 F 84 22 126/59 98 09/28/16 10:00 09/28/16 11:46 09/28/16 10:00 09/28/16 10:00 09/28/16 11:46 Gen: tachypneic with speaking Heart: RRR Lung: bibasilar rales Abd: soft, nontender Ext: no edema CBC, BMP 09/28/16 06:00 09/28/16 06:00 Active Medications Albuterol Sulfate (Ventolin 0.083% Nebulizer Soln -) 1 amp NEB Q4H PRN PRN Reason: SHORT OF BREATH/WHEEZING Albuterol/Ipratropium (Duoneb -) 1 amp NEB QIDR [facility] Last Admin: 09/28/16 11:45 Dose: 1 amp Ceftriaxone Sodium (Rocephin 1gm Ivpb (Pre-Docked)) 1 gm IVPB DAILY [facility] Last Admin: 09/28/16 10:18 Dose: 1 gm Clonazepam (Klonopin -) 0.5 mg PO BID [facility] Last Admin: 09/28/16 10:18 Dose: 0.5 mg Levofloxacin (Levaquin 500 Mg Premixed Ivpb -) 100 mls @ 100 mls/hr IVPB DAILY@ 0800 [facility] Last Admin: 09/28/16 08:28 Dose: 100 mls/hr Sodium Chloride (Normal Saline -) 1,000 mls @ 50 mls/hr IV ASDIR [facility] Last Admin: 09/27/16 12:24 Dose: 50 mls/hr Imipramine HCl (Tofranil -) 75 mg PO HS [facility] Last Admin: 09/27/16 21:47 Dose: 75 mg Insulin Aspart (Novolog Vial Sliding Scale -) 1 vial SQ TIDAC [facility] PRN Reason: Protocol Last Admin: 09/28/16 06:28 Dose: 14 units Levothyroxine Sodium (Synthroid -) 50 mcg PO DAILY@0700 [facility] Last Admin: 09/28/16 06:28 Dose: 50 mcg Methylprednisolone Sodium Succinate (Solu-Medrol -) 40 mg IVPB Q8H-IV [facility] Last Admin: 09/28/16 10:18 Dose: 40 mg Pantoprazole Sodium (Protonix -) 40 mg PO DAILY [facility] Last Admin: 09/28/16 10:18 Dose: 40 mg A/P Acute Hypoxic Respiratory Failure Interstitial Lung Disease r/o Pneumonia Acute Kidney Injury improved Aortic Stenosis LV Diastolic Dysfunction Schizophrenia Anxiety - continue medrol - inhaled bronchodilators standing and PRN - O2 to keep Sp2 >90% - antibiotics per ID - f/u cultures - glucose control while on systemic steroids - DVT prophylaxis Problem List - Problems (1) Interstitial lung disease Code(s): J84.9 - INTERSTITIAL PULMONARY DISEASE, UNSPECIFIED (2) Acute respiratory failure with hypoxia Code(s): J96.01 - ACUTE RESPIRATORY FAILURE WITH HYPOXIA (3) Lactic acidosis Code(s): E87.2 - ACIDOSIS (4) Anxiety Code(s): F41.9 - ANXIETY DISORDER, UNSPECIFIED (5) Acute kidney injury Code(s): N17.9 - ACUTE KIDNEY FAILURE, UNSPECIFIED
[2016-09-28] MEDS: SODIUM CHLORIDE 1,000 ML IV SCH (12:06)
--- NOTE | 2016-09-28 13:59 | PN ---
Progress Note, Physician History of Present Illness: OOB in chair Mildly dyspneic on nasal cannula Occasional cough- dry Unable to provide sputum specimen Afebrile with elevated WBC on steroids - Current Medication List Current Medications: Active Medications Albuterol Sulfate (Ventolin 0.083% Nebulizer Soln -) 1 amp NEB Q4H PRN PRN Reason: SHORT OF BREATH/WHEEZING Albuterol/Ipratropium (Duoneb -) 1 amp NEB QIDR [facility] Last Admin: 09/28/16 11:45 Dose: 1 amp Ceftriaxone Sodium (Rocephin 1gm Ivpb (Pre-Docked)) 1 gm IVPB DAILY [facility] Last Admin: 09/28/16 10:18 Dose: 1 gm Clonazepam (Klonopin -) 0.5 mg PO BID [facility] Last Admin: 09/28/16 10:18 Dose: 0.5 mg Levofloxacin (Levaquin 500 Mg Premixed Ivpb -) 100 mls @ 100 mls/hr IVPB DAILY@ 0800 [facility] Last Admin: 09/28/16 08:28 Dose: 100 mls/hr Sodium Chloride (Normal Saline -) 1,000 mls @ 50 mls/hr IV ASDIR [facility] Last Admin: 09/28/16 12:06 Dose: 50 mls/hr Imipramine HCl (Tofranil -) 75 mg PO HS [facility] Last Admin: 09/27/16 21:47 Dose: 75 mg Insulin Aspart (Novolog Vial Sliding Scale -) 1 vial SQ TIDAC [facility] PRN Reason: Protocol Last Admin: 09/28/16 12:04 Dose: 14 units Levothyroxine Sodium (Synthroid -) 50 mcg PO DAILY@0700 [facility] Last Admin: 09/28/16 06:28 Dose: 50 mcg Methylprednisolone Sodium Succinate (Solu-Medrol -) 40 mg IVPB Q8H-IV [facility] Last Admin: 09/28/16 10:18 Dose: 40 mg Pantoprazole Sodium (Protonix -) 40 mg PO DAILY [facility] Last Admin: 09/28/16 10:18 Dose: 40 mg - Objective Vital Signs: Vital Signs Temperature 97.9 F 09/28/16 10:00 Pulse Rate 84 09/28/16 11:46 Respiratory Rate 22 09/28/16 10:00 Blood Pressure 126/59 09/28/16 10:00 O2 Sat by Pulse Oximetry (%) 98 09/28/16 11:46 Constitutional: Yes: No Distress Eyes: Yes: Conjunctiva Clear Cardiovascular: Yes: Regular Rate and Rhythm, S1, S2 Respiratory: Yes: Other (+ rales bilaterally) Gastrointestinal: Yes: Normal Bowel Sounds, Soft. No: Tenderness Labs: CBC, BMP 09/28/16 06:00 09/28/16 06:00 INR, PTT INR 1.15 (0.82-1.09) H 09/25/16 20:18 Assessment/Plan Exacerbation chronic lung disease +superimposed pneumonia Possible recurrent cholangitis Leukocytosis ? steroid-induced Continue empiric ceftriaxone/ levaquin Steroids
[2016-09-28] MEDS ORDERED: PT OWN MED DRAWER 7, Y5N ONE ×2 (18:13→23:35)
[2016-09-28] MEDS: IMIPRAMINE HCL 25 MG TABLET PO SCH (23:41)
[2016-09-29] MEDS: methylPREDNISolone NA SUCC 40 MG/1 ML VIAL IVPB SCH ×3 (03:01→17:12)
[2016-09-29] MEDS: LEVOTHYROXINE NA 50 MCG TABLET (FP) PO SCH (06:28)
[2016-09-29] MEDS: INSULIN SLIDING SCALE (NOVOLOG) 1 VIAL SQ SCH ×3 (06:32→17:07)
[2016-09-29] MEDS: ALBUTEROL SO4 2.5/IPRATROPIUM 0.5 INH SOL 3 ML VIAL.NEB. NEB SCH ×4 (06:35→23:36)
[2016-09-29] MEDS: LEVOFLOXACIN 500 MG IVPB 100 ML IVPB SCH (08:38)
[2016-09-29] MEDS: SODIUM CHLORIDE 1,000 ML IV SCH ×2 (08:39→23:17)
[2016-09-29] MEDS: cefTRIAXone 1 GM/50 ML BAG (PRE-DOCKED) IVPB SCH (10:36)
[2016-09-29] MEDS: PANTOPRAZOLE 40 MG TABLET (FP) PO SCH (10:37)
[2016-09-29] MEDS: clonazePAM 0.5 MG TABLET PO SCH ×2 (10:37→23:18)
--- NOTE | 2016-09-29 12:44 | PN ---
Progress Note, Physician History of Present Illness: PULMONARY ALERT,OOB-CHAIR FEELING BETTER,-LESS DYSPNEIC - Current Medication List Current Medications: Active Medications Albuterol Sulfate (Ventolin 0.083% Nebulizer Soln -) 1 amp NEB Q4H PRN PRN Reason: SHORT OF BREATH/WHEEZING Albuterol/Ipratropium (Duoneb -) 1 amp NEB QIDR [facility] Last Admin: 09/29/16 11:46 Dose: 1 amp Ceftriaxone Sodium (Rocephin 1gm Ivpb (Pre-Docked)) 1 gm IVPB DAILY [facility] Last Admin: 09/29/16 10:36 Dose: 1 gm Clonazepam (Klonopin -) 0.5 mg PO BID [facility] Last Admin: 09/29/16 10:37 Dose: 0.5 mg Levofloxacin (Levaquin 500 Mg Premixed Ivpb -) 100 mls @ 100 mls/hr IVPB DAILY@ 0800 [facility] Last Admin: 09/29/16 08:38 Dose: 100 mls/hr Sodium Chloride (Normal Saline -) 1,000 mls @ 50 mls/hr IV ASDIR [facility] Last Admin: 09/29/16 08:39 Dose: 50 mls/hr Imipramine HCl (Tofranil -) 75 mg PO HS [facility] Last Admin: 09/28/16 23:41 Dose: 75 mg Insulin Aspart (Novolog Vial Sliding Scale -) 1 vial SQ TIDAC [facility] PRN Reason: Protocol Last Admin: 09/29/16 11:42 Dose: 14 units Levothyroxine Sodium (Synthroid -) 50 mcg PO DAILY@0700 [facility] Last Admin: 09/29/16 06:28 Dose: 50 mcg Methylprednisolone Sodium Succinate (Solu-Medrol -) 40 mg IVPB Q8H-IV [facility] Last Admin: 09/29/16 10:37 Dose: 40 mg Pantoprazole Sodium (Protonix -) 40 mg PO DAILY [facility] Last Admin: 09/29/16 10:37 Dose: 40 mg - Objective Vital Signs: Vital Signs Temperature 98.1 F 09/29/16 06:00 Pulse Rate 81 09/29/16 06:00 Respiratory Rate 18 09/29/16 06:00 Blood Pressure 137/61 09/29/16 06:00 O2 Sat by Pulse Oximetry (%) 98 09/28/16 21:00 Constitutional: Yes: Well Nourished, Calm Eyes: Yes: WNL HENT: Yes: WNL Neck: Yes: WNL Cardiovascular: Yes: Regular Rate and Rhythm, S1, S2 Respiratory: Yes: Rales (BILATERAL CRACKLES) Gastrointestinal: Yes: Normal Bowel Sounds, Soft Extremities: Yes: WNL Edema: No Labs: CBC, BMP 09/28/16 06:00 09/28/16 06:00 INR, PTT INR 1.15 (0.82-1.09) H 09/25/16 20:18 - ....Imaging Cat Scan: Report Reviewed, Image Reviewed Assessment/Plan Problem List - Problems (1) Interstitial lung disease Code(s): J84.9 - INTERSTITIAL PULMONARY DISEASE, UNSPECIFIED (2) Acute respiratory failure with hypoxia Code(s): J96.01 - ACUTE RESPIRATORY FAILURE WITH HYPOXIA (3) Lactic acidosis Code(s): E87.2 - ACIDOSIS resolved (4) Anxiety Code(s): F41.9 - ANXIETY DISORDER, UNSPECIFIED (5) Acute kidney injury Code(s): N17.9 - ACUTE KIDNEY FAILURE, UNSPECIFIED Assessment/Plan Acute Hypoxic Respiratory Failure clinically improving Interstitial Lung Disease Pneumonia Acute Kidney Injury Aortic Stenosis LV Diastolic Dysfunction Schizophrenia Anxiety - IV medrol q12h in am - inhaled bronchodilators standing and PRN - O2 to keep Sp2 >90% - antibiotics - IVF - monitor urine output, creatinine - BiPAP as needed to assist in work of breathing - DVT prophylaxis DR WEST
--- NOTE | 2016-09-29 14:19 | PN ---
Progress Note, Physician History of Present Illness: OOB in chair No complaints Denies dyspnea/ cough No c/o abdominal pain, N/V/D Afebrile - Current Medication List Current Medications: Active Medications Albuterol Sulfate (Ventolin 0.083% Nebulizer Soln -) 1 amp NEB Q4H PRN PRN Reason: SHORT OF BREATH/WHEEZING Albuterol/Ipratropium (Duoneb -) 1 amp NEB QIDR [facility] Last Admin: 09/29/16 11:46 Dose: 1 amp Ceftriaxone Sodium (Rocephin 1gm Ivpb (Pre-Docked)) 1 gm IVPB DAILY [facility] Last Admin: 09/29/16 10:36 Dose: 1 gm Clonazepam (Klonopin -) 0.5 mg PO BID [facility] Last Admin: 09/29/16 10:37 Dose: 0.5 mg Levofloxacin (Levaquin 500 Mg Premixed Ivpb -) 100 mls @ 100 mls/hr IVPB DAILY@ 0800 [facility] Last Admin: 09/29/16 08:38 Dose: 100 mls/hr Sodium Chloride (Normal Saline -) 1,000 mls @ 50 mls/hr IV ASDIR [facility] Last Admin: 09/29/16 08:39 Dose: 50 mls/hr Imipramine HCl (Tofranil -) 75 mg PO HS [facility] Last Admin: 09/28/16 23:41 Dose: 75 mg Insulin Aspart (Novolog Vial Sliding Scale -) 1 vial SQ TIDAC [facility] PRN Reason: Protocol Last Admin: 09/29/16 11:42 Dose: 14 units Levothyroxine Sodium (Synthroid -) 50 mcg PO DAILY@0700 [facility] Last Admin: 09/29/16 06:28 Dose: 50 mcg Methylprednisolone Sodium Succinate (Solu-Medrol -) 40 mg IVPB Q8H-IV [facility] Stop: 09/30/16 02:00 Last Admin: 09/29/16 10:37 Dose: 40 mg Methylprednisolone Sodium Succinate (Solu-Medrol -) 40 mg IVPB BID [facility] Pantoprazole Sodium (Protonix -) 40 mg PO DAILY [facility] Last Admin: 09/29/16 10:37 Dose: 40 mg - Objective Vital Signs: Vital Signs Temperature 98.7 F 09/29/16 10:00 Pulse Rate 95 H 09/29/16 10:00 Respiratory Rate 18 09/29/16 10:00 Blood Pressure 123/67 09/29/16 10:00 O2 Sat by Pulse Oximetry (%) 98 09/28/16 21:00 Constitutional: Yes: No Distress, Obese Eyes: Yes: Conjunctiva Clear Cardiovascular: Yes: Regular Rate and Rhythm, S1, S2 Respiratory: Yes: Other (crepitant rales bilaterally) Gastrointestinal: Yes: Normal Bowel Sounds. No: Tenderness Labs: CBC, BMP 09/28/16 06:00 09/28/16 06:00 INR, PTT INR 1.15 (0.82-1.09) H 09/25/16 20:18 Assessment/Plan Exacerbation chronic lung disease +superimposed pneumonia Possible recurrent cholangitis Leukocytosis ? steroid-induced Continue empiric ceftriaxone/ levaquin Steroids
[2016-09-29] MEDS ORDERED: INSULIN (NOVOLOG) ASPART 100 UNITS/ML 10ML VIAL ONE ×2 (18:27→18:39)
--- NOTE | 2016-09-29 20:05 | PN ---
Progress Note, Physician History of Present Illness: Denies any cough or SOB. No chest pain. CT scan shows pneumonia superimposed on interstitial lung disease - Current Medication List Current Medications: Active Medications Albuterol Sulfate (Ventolin 0.083% Nebulizer Soln -) 1 amp NEB Q4H PRN PRN Reason: SHORT OF BREATH/WHEEZING Albuterol/Ipratropium (Duoneb -) 1 amp NEB QIDR [facility] Last Admin: 09/29/16 17:55 Dose: 1 amp Ceftriaxone Sodium (Rocephin 1gm Ivpb (Pre-Docked)) 1 gm IVPB DAILY [facility] Last Admin: 09/29/16 10:36 Dose: 1 gm Clonazepam (Klonopin -) 0.5 mg PO BID [facility] Last Admin: 09/29/16 10:37 Dose: 0.5 mg Levofloxacin (Levaquin 500 Mg Premixed Ivpb -) 100 mls @ 100 mls/hr IVPB DAILY@ 0800 [facility] Last Admin: 09/29/16 08:38 Dose: 100 mls/hr Sodium Chloride (Normal Saline -) 1,000 mls @ 50 mls/hr IV ASDIR [facility] Last Admin: 09/29/16 08:39 Dose: 50 mls/hr Imipramine HCl (Tofranil -) 75 mg PO HS [facility] Last Admin: 09/28/16 23:41 Dose: 75 mg Insulin Aspart (Novolog Vial Sliding Scale -) 1 vial SQ TIDAC [facility] PRN Reason: Protocol Last Admin: 09/29/16 17:07 Dose: 12 units Levothyroxine Sodium (Synthroid -) 50 mcg PO DAILY@0700 [facility] Last Admin: 09/29/16 06:28 Dose: 50 mcg Methylprednisolone Sodium Succinate (Solu-Medrol -) 40 mg IVPB Q8H-IV [facility] Stop: 09/30/16 02:00 Last Admin: 09/29/16 17:12 Dose: 40 mg Methylprednisolone Sodium Succinate (Solu-Medrol -) 40 mg IVPB BID [facility] Pantoprazole Sodium (Protonix -) 40 mg PO DAILY [facility] Last Admin: 09/29/16 10:37 Dose: 40 mg - Objective Vital Signs: Vital Signs Temperature 98.4 F 09/29/16 18:00 Pulse Rate 103 H 09/29/16 18:00 Respiratory Rate 18 09/29/16 18:00 Blood Pressure 119/72 09/29/16 18:00 O2 Sat by Pulse Oximetry (%) 97 09/29/16 09:00 Constitutional: Yes: Well Nourished, Anxious, Mild Distress Eyes: Yes: WNL, Conjunctiva Clear, EOM Intact HENT: Yes: WNL, Atraumatic Neck: Yes: Supple Cardiovascular: Yes: WNL, Regular Rate and Rhythm, S1, S2 Respiratory: Yes: Regular, CTA Bilaterally Gastrointestinal: Yes: Normal Bowel Sounds, Soft Genitourinary: Yes: WNL Musculoskeletal: Yes: WNL Extremities: Yes: WNL Edema: No Peripheral Pulses WNL: Yes Integumentary: Yes: WNL Neurological: Yes: Alert, Oriented ...Motor Strength: WNL Psychiatric: Yes: Alert, Oriented Labs: CBC, BMP 09/28/16 06:00 09/28/16 06:00 INR, PTT INR 1.15 (0.82-1.09) H 09/25/16 20:18 - ....Imaging Cat Scan: Report Reviewed Problem List - Problems (1) Acute respiratory failure with hypoxia Assessment/Plan: CT scan shows pneumonia superimposed on interstitial lung disease Code(s): J96.01 - ACUTE RESPIRATORY FAILURE WITH HYPOXIA (2) Diabetes Code(s): E11.9 - TYPE 2 DIABETES MELLITUS WITHOUT COMPLICATIONS Qualifiers: Diabetes mellitus macular edema: without macular edema Diabetes mellitus buttermaker insulin use: with chcf use (3) Elevated LFTs Code(s): R79.89 - OTHER SPECIFIED ABNORMAL FINDINGS OF BLOOD CHEMISTRY (4) Obesity Code(s): E66.9 - OBESITY, UNSPECIFIED (5) Schizophrenia in remission Code(s): F20.9 - SCHIZOPHRENIA, UNSPECIFIED (6) Anxiety Code(s): F41.9 - ANXIETY DISORDER, UNSPECIFIED (7) Ascending cholangitis Code(s): K83.0 - CHOLANGITIS (8) Diabetes 1.5, managed as type 1 Code(s): E13.9 - OTHER SPECIFIED DIABETES MELLITUS WITHOUT COMPLICATIONS (9) Fatty (change of) liver, not elsewhere classified Code(s): K76.0 - FATTY (CHANGE OF) LIVER, NOT ELSEWHERE CLASSIFIED (10) Hypothyroid Code(s): E03.9 - HYPOTHYROIDISM, UNSPECIFIED (11) Interstitial lung disease Code(s): J84.9 - INTERSTITIAL PULMONARY DISEASE, UNSPECIFIED (12) Pneumonia Code(s): J18.9 - PNEUMONIA, UNSPECIFIED ORGANISM Qualifiers: Pneumonia type: due to unspecified organism Laterality: unspecified laterality Lung location: unspecified part of lung Qualified Code(s) : J18.9 - Pneumonia, unspecified organism Assessment/Plan Continue inhalation treatment. Continue Levaquin and Rocephin. Taper steroids
[2016-09-29] MEDS ORDERED: PT OWN MED DRAWER 7, Y5N ONE (22:43)
[2016-09-29] MEDS: IMIPRAMINE HCL 25 MG TABLET PO SCH (23:18)
[2016-09-30] MEDS: methylPREDNISolone NA SUCC 40 MG/1 ML VIAL IVPB SCH ×3 (03:43→21:48)
[2016-09-30] MEDS: ALBUTEROL SO4 2.5/IPRATROPIUM 0.5 INH SOL 3 ML VIAL.NEB. NEB SCH ×4 (06:57→23:06)
[2016-09-30] MEDS: LEVOTHYROXINE NA 50 MCG TABLET (FP) PO SCH (06:58)
[2016-09-30] MEDS: INSULIN SLIDING SCALE (NOVOLOG) 1 VIAL SQ SCH ×3 (07:00→17:22)
[2016-09-30 08:32] LABS: MCH 32.6 pg (25.7-33.7); MCHC 33.8 g/dl (32.0-35.9); MEAN CELL VOLUME 96.4 fl (80-96); MEAN PLT VOLUME 8.5 fl (7.5-11.1); PLATELET COUNT 250 K/MM3 (134-434); RDW 13.8 % (11.9-15.9); WHITE BLOOD COUNT 18.3 K/mm3 (4.0-10.0)
[2016-09-30] MEDS: LEVOFLOXACIN 500 MG IVPB 100 ML IVPB SCH (08:38)
[2016-09-30] MEDS: SODIUM CHLORIDE 1,000 ML IV SCH (08:38)
[2016-09-30] MEDS: PANTOPRAZOLE 40 MG TABLET (FP) PO SCH (09:08)
[2016-09-30] MEDS: clonazePAM 0.5 MG TABLET PO SCH ×2 (09:08→21:48)
[2016-09-30] MEDS: cefTRIAXone 1 GM/50 ML BAG (PRE-DOCKED) IVPB SCH (09:08)
[2016-09-30 09:47] LABS: PLATELET ESTIMATE ADEQUATE (NORMAL)
--- NOTE | 2016-09-30 11:50 | PN ---
Progress Note (short form) - Note Progress Note: Awake and alert. Mildly tachypneic but in NAD on NC O2. Some congested cough. Feels better than on admission. Intake & Output 09/27/16 09/28/16 09/29/16 09/30/16 23:59 23:59 23:59 23:59 Intake Total 1250 2750 1910 Output Total 700 1520 450 Balance 1250 2050 390 -450 Last Vital Signs Temp Pulse Resp BP Pulse Ox 96.9 F L 91 H 18 135/61 97 09/30/16 10:00 09/30/16 10:00 09/30/16 10:00 09/30/16 10:00 09/29/16 21:00 Active Medications Albuterol Sulfate (Ventolin 0.083% Nebulizer Soln -) 1 amp NEB Q4H PRN PRN Reason: SHORT OF BREATH/WHEEZING Albuterol/Ipratropium (Duoneb -) 1 amp NEB QIDR [facility] Last Admin: 09/30/16 06:57 Dose: 1 amp Ceftriaxone Sodium (Rocephin 1gm Ivpb (Pre-Docked)) 1 gm IVPB DAILY [facility] Last Admin: 09/30/16 09:08 Dose: 1 gm Clonazepam (Klonopin -) 0.5 mg PO BID [facility] Last Admin: 09/30/16 09:08 Dose: 0.5 mg Levofloxacin (Levaquin 500 Mg Premixed Ivpb -) 100 mls @ 100 mls/hr IVPB DAILY@ 0800 [facility] Last Admin: 09/30/16 08:38 Dose: 100 mls/hr Sodium Chloride (Normal Saline -) 1,000 mls @ 50 mls/hr IV ASDIR [facility] Last Admin: 09/30/16 08:38 Dose: 50 mls/hr Imipramine HCl (Tofranil -) 75 mg PO HS [facility] Last Admin: 09/29/16 23:18 Dose: 75 mg Insulin Aspart (Novolog Vial Sliding Scale -) 1 vial SQ TIDAC [facility] PRN Reason: Protocol Last Admin: 09/30/16 11:36 Dose: 14 units Levothyroxine Sodium (Synthroid -) 50 mcg PO DAILY@0700 [facility] Last Admin: 09/30/16 06:58 Dose: 50 mcg Methylprednisolone Sodium Succinate (Solu-Medrol -) 40 mg IVPB BID [facility] Last Admin: 09/30/16 09:08 Dose: 40 mg Pantoprazole Sodium (Protonix -) 40 mg PO DAILY [facility] Last Admin: 09/30/16 09:08 Dose: 40 mg Constitutional: Yes: Mildly tachypneic at rest Eyes: Yes: WNL HENT: Yes: WNL Neck: Yes: WNL Cardiovascular: Yes: Regular Rate and Rhythm, S1, S2 Respiratory: Yes: BILATERAL CRACKLES Gastrointestinal: Yes: Normal Bowel Sounds, Soft Extremities: Yes: WNL Edema: No Labs: Laboratory Results - last 24 hr 09/29/16 09/29/16 09/30/16 11:39 17:04 06:55 WBC 18.3 H D RBC 4.08 Hgb 13.3 Hct 39.3 MCV 96.4 H MCH 32.6 MCHC 33.8 RDW 13.8 Plt Count 250 MPV 8.5 Neutrophils % 86.0 H Lymphocytes % 7.0 L D Monocytes % 2.0 L D Band Neutrophils 5.0 D Differential Comment Slide scanned Platelet Estimate Adequate POC Glucometer 339 261 09/30/16 06:59 WBC RBC Hgb Hct MCV MCH MCHC RDW Plt Count MPV Neutrophils % Lymphocytes % Monocytes % Band Neutrophils Differential Comment Platelet Estimate POC Glucometer 344 Assessment/Plan Problem List - Problems (1) Interstitial lung disease Code(s): J84.9 - INTERSTITIAL PULMONARY DISEASE, UNSPECIFIED (2) Acute respiratory failure with hypoxia Code(s): J96.01 - ACUTE RESPIRATORY FAILURE WITH HYPOXIA (3) Lactic acidosis Code(s): E87.2 - ACIDOSIS resolved (4) Anxiety Code(s): F41.9 - ANXIETY DISORDER, UNSPECIFIED (5) Acute kidney injury Code(s): N17.9 - ACUTE KIDNEY FAILURE, UNSPECIFIED Assessment/Plan Acute Hypoxic Respiratory Failure clinically improving Interstitial Lung Disease Pneumonia Acute Kidney Injury Aortic Stenosis LV Diastolic Dysfunction Schizophrenia Anxiety - IV medrol q12h in am - inhaled bronchodilators standing and PRN - O2 to keep Sp2 >90% - Antibiotics per ID - NIPPV if needed to assist in work of breathing - VTE prophylaxis Dr Garcia
--- NOTE | 2016-09-30 12:03 | PN ---
Progress Note, Physician History of Present Illness: Awake,alert No complaints Denies dyspnea/ cough No c/o abdominal pain/ diarrhea Afebrile WBC improved - Current Medication List Current Medications: Active Medications Albuterol Sulfate (Ventolin 0.083% Nebulizer Soln -) 1 amp NEB Q4H PRN PRN Reason: SHORT OF BREATH/WHEEZING Albuterol/Ipratropium (Duoneb -) 1 amp NEB QIDR [facility] Last Admin: 09/30/16 11:51 Dose: 1 amp Ceftriaxone Sodium (Rocephin 1gm Ivpb (Pre-Docked)) 1 gm IVPB DAILY [facility] Last Admin: 09/30/16 09:08 Dose: 1 gm Clonazepam (Klonopin -) 0.5 mg PO BID [facility] Last Admin: 09/30/16 09:08 Dose: 0.5 mg Levofloxacin (Levaquin 500 Mg Premixed Ivpb -) 100 mls @ 100 mls/hr IVPB DAILY@ 0800 [facility] Last Admin: 09/30/16 08:38 Dose: 100 mls/hr Sodium Chloride (Normal Saline -) 1,000 mls @ 50 mls/hr IV ASDIR [facility] Last Admin: 09/30/16 08:38 Dose: 50 mls/hr Imipramine HCl (Tofranil -) 75 mg PO HS [facility] Last Admin: 09/29/16 23:18 Dose: 75 mg Insulin Aspart (Novolog Vial Sliding Scale -) 1 vial SQ TIDAC [facility] PRN Reason: Protocol Last Admin: 09/30/16 11:36 Dose: 14 units Levothyroxine Sodium (Synthroid -) 50 mcg PO DAILY@0700 [facility] Last Admin: 09/30/16 06:58 Dose: 50 mcg Methylprednisolone Sodium Succinate (Solu-Medrol -) 40 mg IVPB BID [facility] Last Admin: 09/30/16 09:08 Dose: 40 mg Pantoprazole Sodium (Protonix -) 40 mg PO DAILY [facility] Last Admin: 09/30/16 09:08 Dose: 40 mg - Objective Vital Signs: Vital Signs Temperature 96.9 F L 09/30/16 10:00 Pulse Rate 91 H 09/30/16 10:00 Respiratory Rate 18 09/30/16 10:00 Blood Pressure 135/61 09/30/16 10:00 O2 Sat by Pulse Oximetry (%) 97 09/29/16 21:00 Constitutional: Yes: No Distress Eyes: Yes: Conjunctiva Clear Cardiovascular: Yes: Regular Rate and Rhythm, S1, S2 Respiratory: Yes: Other (+ crepitations bilaterally) Gastrointestinal: Yes: Normal Bowel Sounds, Soft. No: Tenderness Labs: CBC, BMP 09/30/16 06:55 09/28/16 06:00 INR, PTT INR 1.15 (0.82-1.09) H 09/25/16 20:18 Assessment/Plan Exacerbation chronic lung disease +superimposed pneumonia Possible recurrent cholangitis Leukocytosis ? steroid-induced- improved Continue empiric ceftriaxone/ levaquin Steroids
[2016-09-30] MEDS: IMIPRAMINE HCL 25 MG TABLET PO SCH (21:48)
--- NOTE | 2016-09-30 22:31 | PN ---
Progress Note, Physician History of Present Illness: Feels much better without nay cough or SOB. Denies N/V or diarrhea Denies any shaking chills. - Current Medication List Current Medications: Active Medications Albuterol Sulfate (Ventolin 0.083% Nebulizer Soln -) 1 amp NEB Q4H PRN PRN Reason: SHORT OF BREATH/WHEEZING Albuterol/Ipratropium (Duoneb -) 1 amp NEB QIDR [facility] Last Admin: 09/30/16 18:27 Dose: 1 amp Ceftriaxone Sodium (Rocephin 1gm Ivpb (Pre-Docked)) 1 gm IVPB DAILY [facility] Last Admin: 09/30/16 09:08 Dose: 1 gm Clonazepam (Klonopin -) 0.5 mg PO BID [facility] Last Admin: 09/30/16 21:48 Dose: 0.5 mg Levofloxacin (Levaquin 500 Mg Premixed Ivpb -) 100 mls @ 100 mls/hr IVPB DAILY@ 0800 [facility] Last Admin: 09/30/16 08:38 Dose: 100 mls/hr Sodium Chloride (Normal Saline -) 1,000 mls @ 50 mls/hr IV ASDIR [facility] Last Admin: 09/30/16 08:38 Dose: 50 mls/hr Imipramine HCl (Tofranil -) 75 mg PO HS [facility] Last Admin: 09/30/16 21:48 Dose: 75 mg Insulin Aspart (Novolog Vial Sliding Scale -) 1 vial SQ TIDAC [facility] PRN Reason: Protocol Last Admin: 09/30/16 17:22 Dose: 14 units Levothyroxine Sodium (Synthroid -) 50 mcg PO DAILY@0700 [facility] Last Admin: 09/30/16 06:58 Dose: 50 mcg Methylprednisolone Sodium Succinate (Solu-Medrol -) 40 mg IVPB BID [facility] Last Admin: 09/30/16 21:48 Dose: 40 mg Pantoprazole Sodium (Protonix -) 40 mg PO DAILY [facility] Last Admin: 09/30/16 09:08 Dose: 40 mg - Objective Vital Signs: Vital Signs Temperature 97.2 F L 09/30/16 18:10 Pulse Rate 73 09/30/16 18:10 Respiratory Rate 16 09/30/16 18:10 Blood Pressure 121/68 09/30/16 18:10 O2 Sat by Pulse Oximetry (%) 96 09/30/16 09:00 Constitutional: Yes: No Distress, Calm Eyes: Yes: Conjunctiva Clear HENT: Yes: WNL Neck: Yes: Supple Cardiovascular: Yes: Regular Rate and Rhythm, S1, S2 Respiratory: Yes: Regular, Rales Gastrointestinal: Yes: Normal Bowel Sounds, Soft Genitourinary: Yes: WNL Musculoskeletal: Yes: Back Pain Extremities: Yes: WNL Edema: No Peripheral Pulses WNL: Yes Integumentary: Yes: WNL Neurological: Yes: Alert, Oriented ...Motor Strength: WNL Labs: CBC, BMP 09/30/16 06:55 09/28/16 06:00 INR, PTT INR 1.15 (0.82-1.09) H 09/25/16 20:18 - ....Imaging Chest X-ray: Image Reviewed Problem List - Problems (1) Acute respiratory failure with hypoxia Assessment/Plan: No resp distress Code(s): J96.01 - ACUTE RESPIRATORY FAILURE WITH HYPOXIA (2) Diabetes Assessment/Plan: BGM high due to steroids Code(s): E11.9 - TYPE 2 DIABETES MELLITUS WITHOUT COMPLICATIONS Qualifiers: Diabetes mellitus macular edema: without macular edema Diabetes mellitus halfway insulin use: with watermelon inspector use (3) Elevated LFTs Assessment/Plan: LFTs have improved Code(s): R79.89 - OTHER SPECIFIED ABNORMAL FINDINGS OF BLOOD CHEMISTRY (4) Obesity Code(s): E66.9 - OBESITY, UNSPECIFIED (5) Schizophrenia in remission Code(s): F20.9 - SCHIZOPHRENIA, UNSPECIFIED (6) Anxiety Code(s): F41.9 - ANXIETY DISORDER, UNSPECIFIED (7) Ascending cholangitis Code(s): K83.0 - CHOLANGITIS (8) Diabetes 1.5, managed as type 1 Code(s): E13.9 - OTHER SPECIFIED DIABETES MELLITUS WITHOUT COMPLICATIONS (9) Fatty (change of) liver, not elsewhere classified Code(s): K76.0 - FATTY (CHANGE OF) LIVER, NOT ELSEWHERE CLASSIFIED (10) Hypothyroid Code(s): E03.9 - HYPOTHYROIDISM, UNSPECIFIED (11) Interstitial lung disease Code(s): J84.9 - INTERSTITIAL PULMONARY DISEASE, UNSPECIFIED (12) Pneumonia Code(s): J18.9 - PNEUMONIA, UNSPECIFIED ORGANISM Qualifiers: Pneumonia type: due to unspecified organism Laterality: unspecified laterality Lung location: unspecified part of lung Qualified Code(s) : J18.9 - Pneumonia, unspecified organism Assessment/Plan Continue IV Levaquin and IV Rocephin. Cont. Reg Insulin coverage.
[2016-10-01] MEDS: ALBUTEROL SO4 2.5/IPRATROPIUM 0.5 INH SOL 3 ML VIAL.NEB. NEB SCH ×3 (06:32→18:20)
[2016-10-01] MEDS: INSULIN SLIDING SCALE (NOVOLOG) 1 VIAL SQ SCH ×3 (06:45→17:08)
[2016-10-01] MEDS: LEVOTHYROXINE NA 50 MCG TABLET (FP) PO SCH (06:46)
[2016-10-01] MEDS: SODIUM CHLORIDE 1,000 ML IV SCH ×2 (06:46→14:55)
[2016-10-01] MEDS ORDERED: INSULIN (NOVOLOG) ASPART 100 UNITS/ML 10ML VIAL ONE (07:04)
[2016-10-01] MEDS: LEVOFLOXACIN 500 MG IVPB 100 ML IVPB SCH (08:00)
[2016-10-01 08:41] LABS: ALBUMIN 2.9 g/dl (3.4-5.0); ANION GAP 10 (8-16); CALCIUM 8.4 mg/dL (8.5-10.1); CO2 26 mmol/L (21-32); SGOT/AST 32 U/L (15-37); SGPT/ALT 60 U/L (12-78)
[2016-10-01 08:43] LABS: ALK PHOS 99 U/L (45-117); TOT PROT 5.9 g/dl (6.4-8.2)
[2016-10-01 09:32] LABS: GLUCOSE,RANDOM 343 mg/dL (74-106)
[2016-10-01] MEDS: PANTOPRAZOLE 40 MG TABLET (FP) PO SCH (10:03)
[2016-10-01] MEDS: clonazePAM 0.5 MG TABLET PO SCH ×2 (10:03→21:58)
[2016-10-01] MEDS: methylPREDNISolone NA SUCC 40 MG/1 ML VIAL IVPB SCH ×2 (10:04→21:59)
[2016-10-01] MEDS: cefTRIAXone 1 GM/50 ML BAG (PRE-DOCKED) IVPB SCH (10:04)
--- NOTE | 2016-10-01 11:49 | PN ---
Progress Note (short form) - Note Progress Note: Awake and alert. Mildly tachypneic but in NAD on [place] O2. (+) cough. Feels better than on admission. 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 Intake & Output 09/28/16 09/29/16 09/30/16 10/01/16 23:59 23:59 23:59 23:59 Intake Total 2750 1910 1480 550 Output Total 700 1520 1150 800 Balance 2050 390 330 -250 Last Vital Signs Temp Pulse Resp BP Pulse Ox 98.6 F 78 18 129/66 94 L 10/01/16 06:00 10/01/16 11:46 10/01/16 06:00 10/01/16 06:00 10/01/16 11:46 Active Medications Albuterol Sulfate (Ventolin 0.083% Nebulizer Soln -) 1 amp NEB Q4H PRN PRN Reason: SHORT OF BREATH/WHEEZING Albuterol/Ipratropium (Duoneb -) 1 amp NEB QIDR [facility] Last Admin: 10/01/16 11:48 Dose: 1 amp Ceftriaxone Sodium (Rocephin 1gm Ivpb (Pre-Docked)) 1 gm IVPB DAILY [facility] Last Admin: 10/01/16 10:04 Dose: 1 gm Clonazepam (Klonopin -) 0.5 mg PO BID [facility] Last Admin: 10/01/16 10:03 Dose: 0.5 mg Levofloxacin (Levaquin 500 Mg Premixed Ivpb -) 100 mls @ 100 mls/hr IVPB DAILY@ 0800 [facility] Last Admin: 10/01/16 08:00 Dose: 100 mls/hr Sodium Chloride (Normal Saline -) 1,000 mls @ 50 mls/hr IV ASDIR [facility] Last Admin: 10/01/16 06:46 Dose: 50 mls/hr Imipramine HCl (Tofranil -) 75 mg PO HS [facility] Last Admin: 09/30/16 21:48 Dose: 75 mg Insulin Aspart (Novolog Vial Sliding Scale -) 1 vial SQ TIDAC [facility] PRN Reason: Protocol Last Admin: 10/01/16 11:17 Dose: 12 units Levothyroxine Sodium (Synthroid -) 50 mcg PO DAILY@0700 [facility] Last Admin: 10/01/16 06:46 Dose: 50 mcg Methylprednisolone Sodium Succinate (Solu-Medrol -) 40 mg IVPB BID [facility] Last Admin: 10/01/16 10:04 Dose: 40 mg Pantoprazole Sodium (Protonix -) 40 mg PO DAILY [facility] Last Admin: 10/01/16 10:03 Dose: 40 mg Constitutional: Yes: Mildly tachypneic at rest Eyes: Yes: WNL HENT: Yes: WNL Neck: Yes: WNL Cardiovascular: Yes: Regular Rate and Rhythm, S1, S2 Respiratory: Yes: BILATERAL CRACKLES Gastrointestinal: Yes: Normal Bowel Sounds, Soft Extremities: Yes: WNL Edema: No Labs: Laboratory Results - last 24 hr 09/30/16 09/30/16 10/01/16 11:31 17:13 05:50 Sodium Potassium Chloride Carbon Dioxide Anion Gap BUN Creatinine Creat Clearance w eGFR POC Glucometer 321 325 318 Random Glucose Calcium Total Bilirubin AST ALT Alkaline Phosphatase Total Protein Albumin 10/01/16 10/01/16 07:29 11:09 Sodium 133 L Potassium 4.8 Chloride 97 L Carbon Dioxide 26 Anion Gap 10 BUN 32 H Creatinine 1.0 Creat Clearance w eGFR > 60 POC Glucometer 300 Random Glucose 343 H* Calcium 8.4 L Total Bilirubin 1.0 D AST 32 D ALT 60 D Alkaline Phosphatase 99 Total Protein 5.9 L Albumin 2.9 L Assessment/Plan Problem List - Problems (1) Interstitial lung disease Code(s): J84.9 - INTERSTITIAL PULMONARY DISEASE, UNSPECIFIED (2) Acute respiratory failure with hypoxia Code(s): J96.01 - ACUTE RESPIRATORY FAILURE WITH HYPOXIA (3) Lactic acidosis Code(s): E87.2 - ACIDOSIS resolved (4) Anxiety Code(s): F41.9 - ANXIETY DISORDER, UNSPECIFIED (5) Acute kidney injury Code(s): N17.9 - ACUTE KIDNEY FAILURE, UNSPECIFIED Assessment/Plan Acute Hypoxic Respiratory Failure clinically improving Interstitial Lung Disease Pneumonia Acute Kidney Injury Aortic Stenosis LV Diastolic Dysfunction Schizophrenia Anxiety - IV medrol q12h - inhaled bronchodilators standing and PRN - O2 to keep Sp2 >90% - Antibiotics per ID - NIPPV if needed to assist in work of breathing - VTE prophylaxis Dr Garcia
--- NOTE | 2016-10-01 13:17 | PN ---
Progress Note, Physician History of Present Illness: No complaints Denies chest pain/ dyspnea No abdominal pain Afebrile WBC, LFTs improved - Current Medication List Current Medications: Active Medications Albuterol/Ipratropium (Duoneb -) 1 amp NEB QIDR [facility] Last Admin: 10/01/16 11:48 Dose: 1 amp Ceftriaxone Sodium (Rocephin 1gm Ivpb (Pre-Docked)) 1 gm IVPB DAILY [facility] Last Admin: 10/01/16 10:04 Dose: 1 gm Clonazepam (Klonopin -) 0.5 mg PO BID [facility] Last Admin: 10/01/16 10:03 Dose: 0.5 mg Levofloxacin (Levaquin 500 Mg Premixed Ivpb -) 100 mls @ 100 mls/hr IVPB DAILY@ 0800 [facility] Last Admin: 10/01/16 08:00 Dose: 100 mls/hr Sodium Chloride (Normal Saline -) 1,000 mls @ 50 mls/hr IV ASDIR [facility] Last Admin: 10/01/16 06:46 Dose: 50 mls/hr Imipramine HCl (Tofranil -) 75 mg PO HS [facility] Last Admin: 09/30/16 21:48 Dose: 75 mg Insulin Aspart (Novolog Vial Sliding Scale -) 1 vial SQ TIDAC [facility] PRN Reason: Protocol Last Admin: 10/01/16 11:17 Dose: 12 units Levothyroxine Sodium (Synthroid -) 50 mcg PO DAILY@0700 [facility] Last Admin: 10/01/16 06:46 Dose: 50 mcg Methylprednisolone Sodium Succinate (Solu-Medrol -) 40 mg IVPB BID [facility] Last Admin: 10/01/16 10:04 Dose: 40 mg Pantoprazole Sodium (Protonix -) 40 mg PO DAILY [facility] Last Admin: 10/01/16 10:03 Dose: 40 mg - Objective Vital Signs: Vital Signs Temperature 98.6 F 10/01/16 06:00 Pulse Rate 78 10/01/16 11:46 Respiratory Rate 18 10/01/16 06:00 Blood Pressure 129/66 10/01/16 06:00 O2 Sat by Pulse Oximetry (%) 94 L 10/01/16 11:46 Constitutional: Yes: No Distress Eyes: Yes: Conjunctiva Clear Cardiovascular: Yes: Regular Rate and Rhythm, S1, S2 Respiratory: Yes: Rales Gastrointestinal: Yes: Normal Bowel Sounds, Soft, Abdomen, Obese. No: Tenderness Labs: CBC, BMP 09/30/16 06:55 10/01/16 07:29 INR, PTT INR 1.15 (0.82-1.09) H 09/25/16 20:18 Assessment/Plan Exacerbation chronic lung disease +superimposed pneumonia Possible recurrent cholangitis Leukocytosis ? steroid-induced- improved Continue empiric ceftriaxone/ levaquin Steroids
[2016-10-01] MEDS: IMIPRAMINE HCL 25 MG TABLET PO SCH (21:59)
[2016-10-01] MEDS ORDERED: ALBUTEROL SO4 0.083% IH SOL 2.5 MG/3 ML VIAL.NEB. NEB PRN (22:40)
--- NOTE | 2016-10-01 22:53 | PN ---
Progress Note, Physician History of Present Illness: Denies SOB, cough or shaking chills. Appetite good. - Current Medication List Current Medications: Active Medications Albuterol Sulfate (Ventolin 0.083% Nebulizer Soln -) 1 amp NEB Q8H [facility] Amlodipine Besylate (Norvasc -) 2.5 mg PO DAILY [facility] Ceftriaxone Sodium (Rocephin 1gm Ivpb (Pre-Docked)) 1 gm IVPB DAILY [facility] Last Admin: 10/01/16 10:04 Dose: 1 gm Clonazepam (Klonopin -) 0.5 mg PO BID [facility] Last Admin: 10/01/16 21:58 Dose: 0.5 mg Sodium Chloride (Normal Saline -) 1,000 mls @ 50 mls/hr IV ASDIR [facility] Last Admin: 10/01/16 14:55 Dose: Not Given Imipramine HCl (Tofranil -) 75 mg PO HS [facility] Last Admin: 10/01/16 21:59 Dose: 75 mg Insulin Aspart (Novolog Vial Sliding Scale -) 1 vial SQ TIDAC [facility] PRN Reason: Protocol Last Admin: 10/01/16 17:08 Dose: 16 units Levothyroxine Sodium (Synthroid -) 50 mcg PO DAILY@0700 [facility] Last Admin: 10/01/16 06:46 Dose: 50 mcg Pantoprazole Sodium (Protonix -) 40 mg PO DAILY [facility] Last Admin: 10/01/16 10:03 Dose: 40 mg Polyethylene Glycol (Miralax (For Daily Use) -) 17 gm PO DAILY [facility] Prednisone (Deltasone -) 10 mg PO BID [facility] - Objective Vital Signs: Vital Signs Temperature 97.7 F 10/01/16 18:00 Pulse Rate 82 10/01/16 18:00 Respiratory Rate 20 10/01/16 18:00 Blood Pressure 149/63 10/01/16 18:00 O2 Sat by Pulse Oximetry (%) 94 L 10/01/16 11:46 Constitutional: Yes: No Distress, Calm Eyes: Yes: WNL HENT: Yes: WNL Neck: Yes: Supple Cardiovascular: Yes: Regular Rate and Rhythm, S1, S2 Respiratory: Yes: Regular, CTA Bilaterally Gastrointestinal: Yes: Normal Bowel Sounds, Soft Genitourinary: Yes: Anuria Musculoskeletal: Yes: Back Pain Extremities: Yes: WNL Edema: No Peripheral Pulses WNL: Yes Integumentary: Yes: WNL Neurological: Yes: Alert, Oriented ...Motor Strength: WNL Psychiatric: Yes: Alert, Oriented Labs: CBC, BMP 09/30/16 06:55 10/01/16 07:29 INR, PTT INR 1.15 (0.82-1.09) H 09/25/16 20:18 Problem List - Problems (1) Acute respiratory failure with hypoxia Code(s): J96.01 - ACUTE RESPIRATORY FAILURE WITH HYPOXIA (2) Diabetes Code(s): E11.9 - TYPE 2 DIABETES MELLITUS WITHOUT COMPLICATIONS Qualifiers: Diabetes mellitus macular edema: without macular edema Diabetes mellitus log getter insulin use: with log getter use (3) Elevated LFTs Code(s): R79.89 - OTHER SPECIFIED ABNORMAL FINDINGS OF BLOOD CHEMISTRY (4) Obesity Code(s): E66.9 - OBESITY, UNSPECIFIED (5) Schizophrenia in remission Code(s): F20.9 - SCHIZOPHRENIA, UNSPECIFIED (6) Anxiety Code(s): F41.9 - ANXIETY DISORDER, UNSPECIFIED (7) Ascending cholangitis Code(s): K83.0 - CHOLANGITIS (8) Diabetes 1.5, managed as type 1 Code(s): E13.9 - OTHER SPECIFIED DIABETES MELLITUS WITHOUT COMPLICATIONS (9) Fatty (change of) liver, not elsewhere classified Code(s): K76.0 - FATTY (CHANGE OF) LIVER, NOT ELSEWHERE CLASSIFIED (10) Hypothyroid Code(s): E03.9 - HYPOTHYROIDISM, UNSPECIFIED (11) Interstitial lung disease Code(s): J84.9 - INTERSTITIAL PULMONARY DISEASE, UNSPECIFIED (12) Pneumonia Code(s): J18.9 - PNEUMONIA, UNSPECIFIED ORGANISM Qualifiers: Pneumonia type: due to unspecified organism Laterality: unspecified laterality Lung location: unspecified part of lung Qualified Code(s) : J18.9 - Pneumonia, unspecified organism Assessment/Plan IMP.;Bilateral pneumonia Interstitial lung disease Diabetes Hypertension Fatty liver Plan:Will d/c Levaquin and cont Rocephin Start Prednisone 20 mg PO daily and taper to 5mg daily due to Interstitial lung disease Start PT for ambulation Continue Reg Insulin coverage
[2016-10-01] MEDS: POLYETHYLENE GLYCOL 3350 119 GM BTL PO SCH (23:01)
[2016-10-02] MEDS: LEVOTHYROXINE NA 50 MCG TABLET (FP) PO SCH (06:26)
[2016-10-02] MEDS: INSULIN SLIDING SCALE (NOVOLOG) 1 VIAL SQ SCH ×3 (06:26→17:03)
[2016-10-02] MEDS: SODIUM CHLORIDE 1,000 ML IV SCH ×2 (06:27→12:54)
[2016-10-02] MEDS: ALBUTEROL SO4 0.083% IH SOL 2.5 MG/3 ML VIAL.NEB. NEB SCH ×3 (06:37→22:59)
[2016-10-02] MEDS ORDERED: PT OWN MED DRAWER 7, Y5N ONE (09:51)
[2016-10-02] MEDS: PANTOPRAZOLE 40 MG TABLET (FP) PO SCH (10:02)
[2016-10-02] MEDS: cefTRIAXone 1 GM/50 ML BAG (PRE-DOCKED) IVPB SCH (10:02)
[2016-10-02] MEDS: predniSONE 10 MG TABLET (UD) PO SCH ×2 (10:02→22:42)
[2016-10-02] MEDS: POLYETHYLENE GLYCOL 3350 119 GM BTL PO SCH (10:02)
[2016-10-02] MEDS: clonazePAM 0.5 MG TABLET PO SCH ×2 (10:02→22:42)
[2016-10-02] MEDS: amLODIPine BESYLATE 2.5 MG TABLET (FP) PO SCH (10:02)
--- NOTE | 2016-10-02 12:12 | PN ---
Progress Note, Physician History of Present Illness: PULMONARY AWAKE ,LAYING BED ,LESS DYSPNEIC,O2 SAT 97% ON NASAL O2 - Current Medication List Current Medications: Active Medications Albuterol Sulfate (Ventolin 0.083% Nebulizer Soln -) 1 amp NEB TIDR [facility] Last Admin: 10/02/16 06:37 Dose: 1 amp Amlodipine Besylate (Norvasc -) 2.5 mg PO DAILY [facility] Last Admin: 10/02/16 10:02 Dose: 2.5 mg Ceftriaxone Sodium (Rocephin 1gm Ivpb (Pre-Docked)) 1 gm IVPB DAILY [facility] Last Admin: 10/02/16 10:02 Dose: 1 gm Clonazepam (Klonopin -) 0.5 mg PO BID [facility] Last Admin: 10/02/16 10:02 Dose: 0.5 mg Sodium Chloride (Normal Saline -) 1,000 mls @ 50 mls/hr IV ASDIR [facility] Last Admin: 10/02/16 06:27 Dose: 50 mls/hr Imipramine HCl (Tofranil -) 75 mg PO HS [facility] Last Admin: 10/01/16 21:59 Dose: 75 mg Insulin Aspart (Novolog Vial Sliding Scale -) 1 vial SQ TIDAC [facility] PRN Reason: Protocol Last Admin: 10/02/16 06:26 Dose: 14 units Levothyroxine Sodium (Synthroid -) 50 mcg PO DAILY@0700 [facility] Last Admin: 10/02/16 06:26 Dose: 50 mcg Pantoprazole Sodium (Protonix -) 40 mg PO DAILY [facility] Last Admin: 10/02/16 10:02 Dose: 40 mg Polyethylene Glycol (Miralax (For Daily Use) -) 17 gm PO DAILY [facility] Last Admin: 10/02/16 10:02 Dose: 17 grams Prednisone (Deltasone -) 10 mg PO BID [facility] Last Admin: 10/02/16 10:02 Dose: 10 mg - Objective Vital Signs: Vital Signs Temperature 97.2 F L 10/02/16 06:00 Pulse Rate 75 10/02/16 06:00 Respiratory Rate 20 10/02/16 06:00 Blood Pressure 155/70 10/02/16 06:00 O2 Sat by Pulse Oximetry (%) 96 10/01/16 21:00 Constitutional: Yes: Well Nourished, Calm Eyes: Yes: WNL HENT: Yes: WNL Neck: Yes: WNL Cardiovascular: Yes: Regular Rate and Rhythm, S1, S2 Respiratory: Yes: Rales (BILATERAL CRACKLES) Gastrointestinal: Yes: Normal Bowel Sounds, Soft Edema: No Labs: CBC, BMP 09/30/16 06:55 10/01/16 07:29 INR, PTT INR 1.15 (0.82-1.09) H 09/25/16 20:18 Assessment/Plan Problem List - Problems (1) Interstitial lung disease Code(s): J84.9 - INTERSTITIAL PULMONARY DISEASE, UNSPECIFIED (2) Acute respiratory failure with hypoxia Code(s): J96.01 - ACUTE RESPIRATORY FAILURE WITH HYPOXIA (3) Lactic acidosis Code(s): E87.2 - ACIDOSIS resolved (4) Anxiety Code(s): F41.9 - ANXIETY DISORDER, UNSPECIFIED (5) Acute kidney injury Code(s): N17.9 - ACUTE KIDNEY FAILURE, UNSPECIFIED Assessment/Plan Acute Hypoxic Respiratory Failure clinically improving Interstitial Lung Disease Pneumonia Acute Kidney Injury Aortic Stenosis LV Diastolic Dysfunction Schizophrenia Anxiety - Steroids - inhaled bronchodilators standing and PRN - O2 to keep Sp2 >90% - antibiotics - IVF - monitor urine output, creatinine - BiPAP as needed to assist in work of breathing - DVT prophylaxis DR WEST
[2016-10-02] MEDS ORDERED: INSULIN (NOVOLOG) ASPART 100 UNITS/ML 10ML VIAL ONE (12:53)
--- NOTE | 2016-10-02 15:06 | PN ---
Progress Note, Physician History of Present Illness: No complaints Denies chest pain/ dyspnea / cough No abdominal pain WBC improved - Current Medication List Current Medications: Active Medications Albuterol Sulfate (Ventolin 0.083% Nebulizer Soln -) 1 amp NEB [facility] Last Admin: 10/02/16 06:37 Dose: 1 amp Amlodipine Besylate (Norvasc -) 2.5 mg PO DAILY [facility] Last Admin: 10/02/16 10:02 Dose: 2.5 mg Ceftriaxone Sodium (Rocephin 1gm Ivpb (Pre-Docked)) 1 gm IVPB DAILY [facility] Last Admin: 10/02/16 10:02 Dose: 1 gm Clonazepam (Klonopin -) 0.5 mg PO BID [facility] Last Admin: 10/02/16 10:02 Dose: 0.5 mg Sodium Chloride (Normal Saline -) 1,000 mls @ 50 mls/hr IV ASDIR [facility] Last Admin: 10/02/16 12:54 Dose: Not Given Imipramine HCl (Tofranil -) 75 mg PO HS [facility] Last Admin: 10/01/16 21:59 Dose: 75 mg Insulin Aspart (Novolog Vial Sliding Scale -) 1 vial SQ [facility]IDAC [facility] PRN Reason: Protocol Last Admin: 10/02/16 12:54 Dose: 14 units Levothyroxine Sodium (Synthroid -) 50 mcg PO DAILY@0700 [facility] Last Admin: 10/02/16 06:26 Dose: 50 mcg Pantoprazole Sodium (Protonix -) 40 mg PO DAILY [facility] Last Admin: 10/02/16 10:02 Dose: 40 mg Polyethylene Glycol (Miralax (For Daily Use) -) 17 gm PO DAILY [facility] Last Admin: 10/02/16 10:02 Dose: 17 grams Prednisone (Deltasone -) 10 mg PO BID [facility] Last Admin: 10/02/16 10:02 Dose: 10 mg - Objective Vital Signs: Vital Signs Temperature 97.9 F 10/02/16 10:00 Pulse Rate 89 10/02/16 10:00 Respiratory Rate 22 10/02/16 10:00 Blood Pressure 143/54 10/02/16 10:00 O2 Sat by Pulse Oximetry (%) 96 10/01/16 21:00 Constitutional: Yes: No Distress Eyes: Yes: Conjunctiva Clear Cardiovascular: Yes: Regular Rate and Rhythm, S1, S2 Respiratory: Yes: Other (rales bilaterally) Gastrointestinal: Yes: Normal Bowel Sounds, Soft. No: Tenderness Labs: CBC, BMP 09/30/16 06:55 10/01/16 07:29 INR, PTT INR 1.15 (0.82-1.09) H 09/25/16 20:18 Assessment/Plan Exacerbation chronic lung disease +superimposed pneumonia Possible recurrent cholangitis Leukocytosis ? steroid-induced- improved Continue empiric ceftriaxone Steroid taper
[2016-10-02] MEDS: IMIPRAMINE HCL 25 MG TABLET PO SCH (22:42)
[2016-10-03] MEDS: INSULIN SLIDING SCALE (NOVOLOG) 1 VIAL SQ SCH ×3 (06:32→17:39)
[2016-10-03] MEDS: LEVOTHYROXINE NA 50 MCG TABLET (FP) PO SCH (06:35)
[2016-10-03] MEDS: ALBUTEROL SO4 0.083% IH SOL 2.5 MG/3 ML VIAL.NEB. NEB SCH ×2 (07:00→13:50)
[2016-10-03] MEDS: POLYETHYLENE GLYCOL 3350 119 GM BTL PO SCH (10:01)
[2016-10-03] MEDS: clonazePAM 0.5 MG TABLET PO SCH (10:01)
[2016-10-03] MEDS: PANTOPRAZOLE 40 MG TABLET (FP) PO SCH (10:01)
[2016-10-03] MEDS: amLODIPine BESYLATE 2.5 MG TABLET (FP) PO SCH (10:01)
[2016-10-03] MEDS: predniSONE 10 MG TABLET (UD) PO SCH (10:01)
[2016-10-03] MEDS ORDERED: predniSONE 20 MG TABLET (UD) PO SCH (11:09)
--- NOTE | 2016-10-03 11:12 | PN ---
Progress Note (short form) - Note Progress Note: Quickly desaturated to 88% on RA at rest. Remains mildly tachypneic but in NAD. (+) cough. Feels overall better than on admission. Intake & Output 09/30/16 10/01/16 10/02/16 10/03/16 23:59 23:59 23:59 23:59 Intake Total 1480 2130 1950 100 Output Total 1150 1650 2700 Balance 330 480 -750 100 Last Vital Signs Temp Pulse Resp BP Pulse Ox 97.9 F 71 20 136/68 96 10/03/16 06:00 10/03/16 06:00 10/03/16 06:00 10/03/16 06:00 10/02/16 21:00 Active Medications Albuterol Sulfate (Ventolin 0.083% Nebulizer Soln -) 1 amp NEB TIDR [facility] Last Admin: 10/03/16 07:00 Dose: 1 amp Amlodipine Besylate (Norvasc -) 2.5 mg PO DAILY [facility] Last Admin: 10/03/16 10:01 Dose: 2.5 mg Clonazepam (Klonopin -) 0.5 mg PO BID [facility] Last Admin: 10/03/16 10:01 Dose: 0.5 mg Imipramine HCl (Tofranil -) 75 mg PO HS [facility] Last Admin: 10/02/16 22:42 Dose: 75 mg Insulin Aspart (Novolog Vial Sliding Scale -) 1 vial SQ TIDAC [facility] PRN Reason: Protocol Last Admin: 10/03/16 06:32 Dose: 8 units Levothyroxine Sodium (Synthroid -) 50 mcg PO DAILY@0700 [facility] Last Admin: 10/03/16 06:35 Dose: 50 mcg Pantoprazole Sodium (Protonix -) 40 mg PO DAILY [facility] Last Admin: 10/03/16 10:01 Dose: 40 mg Polyethylene Glycol (Miralax (For Daily Use) -) 17 gm PO DAILY [facility] Last Admin: 10/03/16 10:01 Dose: 17 grams Prednisone (Deltasone -) 20 mg PO BID [facility] Constitutional: Yes: Mildly tachypneic at rest Eyes: Yes: WNL HENT: Yes: WNL Neck: Yes: WNL Cardiovascular: Yes: Regular Rate and Rhythm, S1, S2 Respiratory: Yes: BILATERAL CRACKLES Gastrointestinal: Yes: Normal Bowel Sounds, Soft Extremities: Yes: WNL Edema: No Labs: Laboratory Results - last 24 hr 10/02/16 10/02/16 10/03/16 12:51 16:49 06:17 POC Glucometer 329 235 239 Assessment/Plan Problem List - Problems (1) Interstitial lung disease Code(s): J84.9 - INTERSTITIAL PULMONARY DISEASE, UNSPECIFIED (2) Acute respiratory failure with hypoxia Code(s): J96.01 - ACUTE RESPIRATORY FAILURE WITH HYPOXIA (3) Lactic acidosis Code(s): E87.2 - ACIDOSIS resolved (4) Anxiety Code(s): F41.9 - ANXIETY DISORDER, UNSPECIFIED (5) Acute kidney injury Code(s): N17.9 - ACUTE KIDNEY FAILURE, UNSPECIFIED Assessment/Plan Acute Hypoxic Respiratory Failure clinically improving Interstitial Lung Disease Pneumonia Acute Kidney Injury Aortic Stenosis LV Diastolic Dysfunction Schizophrenia Anxiety - Will need home O2 as he quickly desaturated to 88% on RA at rest. - Prednisone 20 BOD and slow taper as an outpatient to his baseline - inhaled bronchodilators standing and PRN - O2 to keep Sp2 >90% - Off ABX - VTE prophylaxis - D/C planning Dr Garcia
--- NOTE | 2016-10-03 13:23 | PN ---
Progress Note, Physician History of Present Illness: Supine in bed No complaints Mildly tachypneic at rest No c/o abdominal pain, N/V/D Afebrile - Current Medication List Current Medications: Active Medications Albuterol Sulfate (Ventolin 0.083% Nebulizer Soln -) 1 amp NEB TIDR [facility] Last Admin: 10/03/16 07:00 Dose: 1 amp Amlodipine Besylate (Norvasc -) 2.5 mg PO DAILY [facility] Last Admin: 10/03/16 10:01 Dose: 2.5 mg Clonazepam (Klonopin -) 0.5 mg PO BID [facility] Last Admin: 10/03/16 10:01 Dose: 0.5 mg Imipramine HCl (Tofranil -) 75 mg PO HS [facility] Last Admin: 10/02/16 22:42 Dose: 75 mg Insulin Aspart (Novolog Vial Sliding Scale -) 1 vial SQ TIDAC [facility] PRN Reason: Protocol Last Admin: 10/03/16 11:12 Dose: 12 units Levothyroxine Sodium (Synthroid -) 50 mcg PO DAILY@0700 [facility] Last Admin: 10/03/16 06:35 Dose: 50 mcg Pantoprazole Sodium (Protonix -) 40 mg PO DAILY [facility] Last Admin: 10/03/16 10:01 Dose: 40 mg Polyethylene Glycol (Miralax (For Daily Use) -) 17 gm PO DAILY [facility] Last Admin: 10/03/16 10:01 Dose: 17 grams Prednisone (Deltasone -) 20 mg PO BID [facility] - Objective Vital Signs: Vital Signs Temperature 97.9 F 10/03/16 06:00 Pulse Rate 75 10/03/16 11:15 Respiratory Rate 20 10/03/16 06:00 Blood Pressure 136/68 10/03/16 06:00 O2 Sat by Pulse Oximetry (%) 88 L 10/03/16 11:15 Constitutional: Yes: No Distress, Obese Eyes: Yes: Conjunctiva Clear Cardiovascular: Yes: Regular Rate and Rhythm, S1, S2 Respiratory: Yes: Rales Gastrointestinal: Yes: Normal Bowel Sounds, Soft. No: Tenderness Edema: Yes Labs: CBC, BMP 09/30/16 06:55 10/01/16 07:29 INR, PTT INR 1.15 (0.82-1.09) H 09/25/16 20:18 Assessment/Plan Exacerbation chronic lung disease +superimposed pneumonia Possible recurrent cholangitis Leukocytosis ? steroid-induced- improved Ceftin 500mg po bid x 3d Steroid taper
[2016-10-03] MEDS ORDERED: CEFUROXIME AXETIL 500 MG TABLET PO SCH (13:30)
--- NOTE | 2016-10-03 15:06 | DS ---
Physical Examination Vital Signs: Vital Signs Temperature 97.9 F 10/03/16 06:00 Pulse Rate 75 10/03/16 11:15 Respiratory Rate 20 10/03/16 06:00 Blood Pressure 136/68 10/03/16 06:00 O2 Sat by Pulse Oximetry (%) 88 L 10/03/16 11:15 Findings/Remarks: 76 y/o with interstitial lung disease who was admitted with pneumonia and acute respiratory failure. He is also a known diabetic with schizophrenia and anxiety disorder. He was treated with IV Rocephin and IV Levaquin and was also treated with IV Solu Medrol and Reg Insulin coverage. He gradually improved but O2 Sat was above 90% with 2 liters of nasal O2 but readily decompensated at rest at room air to 88%. He is being discharged. Labs: CBC, BMP 09/30/16 06:55 10/01/16 07:29 Discharge Summary Reason For Visit: COPD Current Active Problems Acute kidney injury (Acute) Acute respiratory failure with hypoxia (Acute) COPD with acute exacerbation (Acute) Diabetes (Acute) Elevated LFTs (Acute) Lactic acidosis (Acute) Obesity (Acute) Schizophrenia in remission (Acute) Hospital Course: 76 y/o white male who was admitted with acute respiratory failure. Was found to have bilateral pneumonia and his known interstitial lung disease. He was treated with IV Solu Medrol, IV Rocephin and IV Levaquin. His diabetes was treated with Reg. Insulin coverage. He gradually improved and is being discharged on Prednisone, Cefuroxime and nasal O2 as he readily decompensated with room air. Condition: Improved - Instructions Referrals: Eduardo Galdamez MD [Primary Care Provider] - - Home Medications Comprehensive Discharge Medication List: Ambulatory Orders Clonazepam [Klonopin -] 0.5 mg PO DAILY 03/20/14 Insulin Lispro Protamin/Lispro [Humalog Mix 75-25 Kwikpen] 30 unit SQ BID Amlodipine Besylate [Norvasc -] 5 mg PO DAILY 08/16/15 Insulin Detemir [Levemir Flextouch] 20 unit SQ BID 08/16/15 Imipramine HCl [Tofranil -] 75 mg PO HS tablet 03/17/16 Ursodiol [Actigal -] 300 mg PO BID #60 capsule 03/17/16 Levothyroxine [Synthroid -] 50 mcg PO DAILY@0700 tablet 08/06/16 Cefuroxime Axetil [Ceftin -] 500 mg PO BID #6 tablet 10/03/16 Prednisone [Deltasone -] 10 mg PO BID #60 tablet 10/03/16
[2016-10-03 15:22] VITALS: BP 105/48; PULSE 82; TEMP 98.2
[2016-10-03] MEDS ORDERED: INSULIN (NOVOLOG) ASPART 100 UNITS/ML 10ML VIAL ONE (17:51)
== END 2016-10-03 18:09 | disposition home or self-care (01) | DRG 189 ==
LOC: JER 19:57 → JERBED 23:37 → UNDOADMIN 23:49 → J5S 09-26 02:25
PROVIDERS: ADMIT Internal Medicine Hematology & Oncology; ATTEND Internal Medicine Hematology & Oncology
PROC: 3E0F7GC Introduction of Other Therapeutic Substance into Respiratory Tract, Via Natural or Artificial Opening (ICD-10-PCS; principal; 2016-09-26)
DX: J96.01 Acute respiratory failure with hypoxia (principal); J18.9 Pneumonia, unspecified organism; J44.0 Chronic obstructive pulmonary disease with (acute) lower respiratory infection; F20.89 Other schizophrenia; N17.9 Acute kidney failure, unspecified; K83.0 Cholangitis; E87.2 Acidosis; J84.89 Other specified interstitial pulmonary diseases; K29.60 Other gastritis without bleeding; J84.10 Pulmonary fibrosis, unspecified; F41.8 Other specified anxiety disorders; E03.9 Hypothyroidism, unspecified; E11.9 Type 2 diabetes mellitus without complications; K76.0 Fatty (change of) liver, not elsewhere classified; E66.8 Other obesity; Z68.32 Body mass index [BMI] 32.0-32.9, adult; R79.89 Other specified abnormal findings of blood chemistry; I35.0 Nonrheumatic aortic (valve) stenosis
CPT/HCPCS: 36415; 71010-TC; 71020-TC; 71250-TC; 80053; 82550; 83605; 83735; 83880; 84100; 84484; 85025; 85610; 87040; 87086; 87899; 93005; 93010; 94640; 97116-GP; 97161-GP; 99284-25

== ENCOUNTER 2016-10-25 16:23 | Inpatient (IN) | payer OTHER, MEDICARE ==
[2016-10-25] MEDS ORDERED: MAGNESIUM SULF 50% (8.12 MEQ/2 ML-1 GM VIAL) ONE (16:39)
[2016-10-25] MEDS ORDERED: ALBUTEROL SO4 2.5/IPRATROPIUM 0.5 INH SOL 3 ML VIAL.NEB. NEB ONE (16:39)
[2016-10-25] MEDS ORDERED: DEXAMETHASONE SOD PHOSPHATE 10 MG/1 ML VIAL ONE (16:39)
[2016-10-25 17:02] LABS: BASOPHIL 0.8 % (0-2.0); EOSINOPHIL 2.8 % (0-4.5); MCH 32.4 pg (25.7-33.7); MCHC 34.2 g/dl (32.0-35.9); MEAN PLT VOLUME 7.9 fl (7.5-11.1); NEUTROPHILS 77.5 % (42.8-82.8); PLATELET COUNT 386 K/MM3 (134-434); RDW 13.8 % (11.9-15.9); WHITE BLOOD COUNT 14.5 K/mm3 (4.0-10.0)
--- NOTE | 2016-10-25 17:17 | PDOC ---
History of Present Illness - General Chief Complaint: Respiratory Distress Stated Complaint: Respiratory Distress Time Seen by Provider: 10/25/16 16:33 History Source: EMS Exam Limitations: Clinical Condition - History of Present Illness Initial Comments: 10/25/16 17:16 The patient is a 76M with a PMH of interstitial lung dz, DM, and obesity who presents with acute onset SOB and LYLE. The hx is provided by EMS and the patient 's who provided the hx to EMS. The EMS states that the patient has been feeling sick from "yesterday to 1.5 weeks ago". is unsure what medications the patient takes. EMS was called and the patient was satting in the 60's on arrival, he was tachypneic and not talking. He was given 2 duoneb tx's, 10 of decadron, and placed on a mag drip of 2g's. He improved to the 70's on duoneb. He was also placed on 7.5 PEEP CPAP. The patient was satting in the high 90's on arrival. He was transferred to our bed and had monitors placed. His EKG showed sinus tach with PVC's. CXR unchanged from previous CXR. He was admitted on 09/25 for a similar episode of LYLE. He was found to be in acute resp failure and had PNA. He was treated with IV levaquin and IV rocephin. He was discharged with home 02, cefuroxime, and prednisone. Past History - Past Medical History Allergies/Adverse Reactions: Allergies Allergy/AdvReac Type Severity Reaction Status Date / Time No Known Allergies Allergy Verified 09/25/16 20:04 Home Medications: Ambulatory Orders Amlodipine Besylate 5 mg PO DAILY 10/25/16 Citalopram Hydrobromide [Celexa -] 10 mg PO DAILY 10/25/16 Clonazepam [KlonoPIN] 0.5 mg PO BID 10/25/16 Imipramine HCl [Tofranil -] 75 mg PO HS 10/25/16 Insulin Lispro Protamin/Lispro [Humalog Mix 75-25 Vial] 20 units SQ BID Metformin HCl [Metformin HCl ER] 500 mg PO BID 10/25/16 Anemia: No Asthma: No Cancer: No Cardiac Disorders: No CVA: No COPD: (Pulm fibrosis) CHF: No Dementia: No Diabetes: Yes GI Disorders: No Disorders: No HTN: Yes Hypercholesterolemia: No Liver Disease: No Psychiatric Problems: Yes (ANXIETY, PANIC ATTACKS.) Seizures: No Thyroid Disease: Yes - Surgical History Abdominal Surgery: Yes Appendectomy: No Cardiac Surgery: No Cholecystectomy: Yes Lung Surgery: No Neurologic Surgery: No Orthopedic Surgery: No - Immunization History Immunization Up to Date: Yes - Psycho/Social/Smoking Cessation Hx Anxiety: No Suicidal Ideation: No Smoking History: Never smoked Have you smoked in the past 12 months: No If you are a former smoker, when did you quit?: 1985 Cigars Per Day: 0 Hx Alcohol Use: No Drug/Substance Use Hx: No Substance Use Type: None Hx Substance Use Treatment: No Review of Systems - Review of Systems Able to Perform ROS?: No (on bipap) Is the patient limited Occitan proficient: No *Physical Exam - Vital Signs Last Vital Signs Temp Pulse Resp BP Pulse Ox 99.1 F 117 H 40 H 143/96 100 10/25/16 17:03 10/25/16 17:03 10/25/16 17:03 10/25/16 17:03 10/25/16 17:07 - Physical Exam General Appearance: Yes: Nourished, Mild Distress, Obese HEENT: positive: Hearing Grossly Normal. negative: Normal Voice Respiratory/Chest: positive: Accessory Muscle Use, Rapid RR, Rales. negative: Chest Tender, Lungs Clear, Normal Breath Sounds, Paradoxal Breathing Cardiovascular: positive: Regular Rhythm, Regular Rate, S1, S2 Gastrointestinal/Abdominal: positive: Flat, Soft. negative: Tender Extremity: positive: Swelling (+1 b/l LE). negative: Calf Tenderness Integumentary: positive: Dry, Warm Neurologic: positive: Alert Heart Score/ECG Review - ECG Impressions Comment:: 10/25/16 17:58 sinus tach with PVC's ED Treatment Course - LABORATORY CBC & Chemistry Diagram: 10/25/16 16:50 10/25/16 16:50 - ADDITIONAL ORDERS Additional order review: 10/25/16 16:50 RBC 4.41 MCV 95.0 MCHC 34.2 RDW 13.8 MPV 7.9 Neutrophils % 77.5 Lymphocytes % 13.8 D Monocytes % 5.1 D Eosinophils % 2.8 D Basophils % 0.8 - RADIOLOGY Radiology Studies Ordered: Category Date Time Status CHEST X-RAY PORTABLE* [RAD] Stat Radiology 10/25/16 16:34 Taken Medical Decision Making - Medical Decision Making 10/25/16 17:58 The patient is a 76M with a PMH of anxiety, interstitial lung dz, DM, and obesity who presents via EMS for LYLE. He has been stabilized in the ED and is on BiPAP. I have assessed the patient and he states he is feeling better although still tachypneic. Pending labs and imaging. 10/25/16 18:08 WBC 14.5 Lactate 2.[address] Barajas and he wants the patient admitted to his service. Consult to Dr. Colón for pulmonology. Orders will be put in. 10/25/16 18:40 Trop of 0.46. Will give 162 asa and switch the bed to tele. 10/25/16 19:[address] Verduzco and he recommends to start the patient on Lovenox and add him for consult. Orders have been placed. He has been accepted to Tele for Dr. Barajas *DC/Admit/Observation/Transfer Diagnosis at time of Disposition: Acute respiratory failure with hypoxia - Discharge Dispostion Condition at time of disposition: Guarded Admit: Yes - Attestations Physician Attestion: 10/25/16 18:13 I, Dr. Eusebio Lewis, attest that this document has been prepared under my direction and personally reviewed by me in its entirety. I further attest, that it accurately reflects all work, treatment, procedures and medical decision -making performed by me.
[2016-10-25 17:22] LABS: INR 1.17 (0.82-1.09); PROTHROMBIN TIME (PATIENT) 12.9 SEC (9.98-11.88)
[2016-10-25 17:24] LABS: ACTIVATED PTT 27.6 SECONDS (26.9-34.4)
--- NOTE | 2016-10-25 17:34 | PDOC ---
Attending Attestation - Resident Resident Name: Eusebio Lewis - ED Attending Attestation I have performed the following: I have examined & evaluated the patient, The case was reviewed & discussed with the resident, I agree w/resident's findings & plan, Exceptions are as noted - HPI HPI: 10/25/16 17:28 76 yo M brought in by EMS due to shortness of breath Patient has a history of interstitial lung disease, COPD, hypertension, diabetes. According to the patient's he has either had symptoms for the past 2 days or one week. This afternoon he became profoundly short of breath, dyspneic. EMS called, O2 sats low 70s. Given Decadron, DuoNebs, Magnesium Improved Respiratory function but patient continues to be in Respiratory Distress No wheezing No rhonchi 10/25/16 17:34 - Physicial Exam PE: 10/25/16 17:35 Seated upright CPAP in place Tachycardiac Tachypneic No wheezing No abd tenderness No lower extremity edema Pt states he feels a bit better - Medical Decision Making 10/25/16 17:35 Will do: Labs CXR BiPAP ABG Continue nebs R/o PNA Re assess 10/25/16 18:34 Laboratory Tests 10/25/16 10/25/16 10/25/16 16:50 16:50 16:50 WBC 14.5 H Hgb 14.3 Hct 41.9 Plt Count 386 D INR 1.17 H BUN 22 H D Creatinine 0.9 Lactic Acid Creatine Kinase 89 Troponin I 0.46 H D 10/25/16 16:50 WBC Hgb Hct Plt Count INR BUN Creatinine Lactic Acid 2.4 H* Creatine Kinase Troponin I 10/25/16 18:34 Admit PMD to Tele ASA Heart Score/ECG Review - History History: Slightly suspicious - Electrocardiogram EKG: Normal - Age Age: >/= 65 - Risk Factors Risk Factors Heart Score: Yes Hx Hypertension, Yes Hx Diabetes, Yes Positive family hx of cardiac disease Based on the list above the patient has:: >/=3 risk factors or Hx atherosclerotic disease - Troponin Troponin: >/=3x normal limit - Score Heart Score - Total: 6 #1 ECG reviewed & interpreted by me at: 18:35 10/25/16 18:36 Twelve-lead EKG was performed and reviewed by me. There is normal sinus rhythm with a tachycardiac rate of 114bpm. The axis is normal. The intervals are normal - pr: 172ms, QRS:90ms, QTc:435ms. ? ST depression precordial, There are no ST or T wave abnormalities.
[2016-10-25 17:38] LABS: ALBUMIN 3.3 g/dl (3.4-5.0); ANION GAP 9 (8-16); BILIRUBIN,TOTAL 0.9 mg/dL (0.2-1.0); CO2 25 mmol/L (21-32); CREATININE 0.9 mg/dL (0.7-1.3); GLUCOSE,RANDOM 182 mg/dL (74-106); SGPT/ALT 27 U/L (12-78); TOT PROT 7.5 g/dl (6.4-8.2)
[2016-10-25 17:41] LABS: ALK PHOS 121 U/L (45-117); CPK 89 IU/L (39-308); TROPONIN I 0.46 ng/ml (0.00-0.05)
[2016-10-25 17:43] LABS: SGOT/AST 47 U/L (15-37)
[2016-10-25] MEDS ORDERED: methylPREDNISolone NA SUCC 40 MG/1 ML VIAL IVPB ONE (18:17)
[2016-10-25] MEDS ORDERED: ASPIRIN 81 MG CHEWABLE TABLETS PO ONE (18:38)
[2016-10-25] MEDS ORDERED: methylPREDNISolone NA SUCC 40 MG/1 ML VIAL ONE (18:54)
[2016-10-25] MEDS ORDERED: ASPIRIN 81 MG CHEWABLE TABLETS ONE (18:54)
[2016-10-25 19:00] LABS: ARTERIAL BLOOD GAS BASE EXCESS 2.4 meq/l (-2-2); ARTERIAL BLOOD GAS HCO3 25.6 meq/L (22-26); ARTERIAL BLOOD GAS pH 7.46 (7.35-7.45)
[2016-10-25 19:02] LABS: ALLENS TEST POSITIVE; ART PUNCT SITE RIGHT RADIAL; LPM/O2% 100%; METHEMOGLOBIN 0.6 % (0.4-1.5); PT. ON O2? YES
[2016-10-25 19:46] VITALS: BMI 32.5
[2016-10-25] MEDS ORDERED: ENOXAPARIN NA (PORCINE) 100 MG/1 ML DISP.SYRIN SQ SCH (22:00)
[2016-10-25] MEDS ORDERED: CEFTRIAXONE 1 GM in DEXTROSE 5%-WATER - 100 ML IVPB SCH (22:15)
[2016-10-25] MEDS: ALBUTEROL SO4 2.5/IPRATROPIUM 0.5 INH SOL 3 ML VIAL.NEB. NEB SCH (22:45)
[2016-10-25] MEDS: cefTRIAXone 1 GM/50 ML BAG (PRE-DOCKED) IVPB SCH (22:46)
[2016-10-25] MEDS: IMIPRAMINE HCL 25 MG TABLET PO SCH (22:46)
[2016-10-25] MEDS: clonazePAM 0.5 MG TABLET PO SCH (22:46)
[2016-10-26] MEDS: methylPREDNISolone NA SUCC 40 MG/1 ML VIAL IVPB SCH ×3 (02:10→17:02)
[2016-10-26 05:48] LABS: URINE APPEARANCE CLEAR; URINE BILIRUBIN NEGATIVE (NEGATIVE); URINE BLOOD NEGATIVE (NEGATIVE); URINE COLOR LT. YELLOW; URINE GLUCOSE (UA) 3+ (NEGATIVE); URINE KETONE 2+ (NEGATIVE); URINE LEUK ESTERASE NEGATIVE (NEGATIVE); URINE NITRITE NEGATIVE (NEGATIVE); URINE PROTEIN NEGATIVE (NEGATIVE)
[2016-10-26] MEDS: ALBUTEROL SO4 2.5/IPRATROPIUM 0.5 INH SOL 3 ML VIAL.NEB. NEB SCH ×4 (06:32→23:10)
[2016-10-26] MEDS: INSULIN SLIDING SCALE (NOVOLOG) 1 VIAL SQ SCH ×3 (06:45→16:38)
[2016-10-26] MEDS ORDERED: INSULIN (NOVOLOG) ASPART 100 UNITS/ML 10ML VIAL ONE ×3 (06:50→17:03)
[2016-10-26] MEDS ORDERED: PT OWN MED DRAWER 7, Y5N ONE ×4 (09:26→22:23)
[2016-10-26] MEDS: clonazePAM 0.5 MG TABLET PO SCH ×2 (09:32→22:28)
[2016-10-26] MEDS: cefTRIAXone 1 GM/50 ML BAG (PRE-DOCKED) IVPB SCH (09:33)
[2016-10-26] MEDS: IMIPRAMINE HCL 25 MG TABLET PO SCH ×2 (10:20→22:28)
--- NOTE | 2016-10-26 14:38 | CON.PULM ---
Consult Consult Specialty:: PULMONARY Referred by:: Dr. Galdamez Reason for Consultation:: respiratory failure - History of Present Illness Chief Complaint: shortness of breath History of Present Illness: 76yo male with h/o interstitial lung disease, DM who presents with worsening shortness of breath. Reports feeling sick for about 2 weeks, reports a nonproductive cough without wheezing. No fevers, chills or sweats. No chest pain or palpitations. Noted to be hypoxic to 60s by EMS, placed on CPAP and now saturating 90s on BiPAP with 40% FiO2. Pt unable to provide further history due to his BiPAP dependence and respiratory distress. CXR showing bilateral infiltrates. - History Source History Provided By: Patient, Medical Record Limitations to Obtaining History: Clinical Condition - Past Medical History Cardio/Vascular: Yes: HTN. No: Other Pulmonary: Yes: Pneumonia, Pulmonary Fibrosis, Other (interstitial pulmonary fibrosis) Gastrointestinal: Yes: Gastritis, Other (CBD implanteed into the jejunum due to laceration during cholecystectomy) Hepatobiliary: Yes: Other (fatty liver, BACK CIRRHOSIS) Psych: Yes: Anxiety, Depression, Schizophrenia Endocrine: Yes: Diabetes Mellitus, Hypothyroidism - Past Surgical History Past Surgical History: Yes: Cholecystectomy - Alcohol/Substance Use Hx Alcohol Use: No History of Substance Use: reports: None - Smoking History Smoking history: Never smoked Have you smoked in the past 12 months: No If you are a former smoker, when did you quit?: 1985 - Social History ADL: Independent History of Recent Travel: No Home Medications - Allergies Allergies/Adverse Reactions: Allergies Allergy/AdvReac Type Severity Reaction Status Date / Time No Known Allergies Allergy Verified 09/25/16 20:04 - Home Medications Home Medications: Ambulatory Orders Amlodipine Besylate 5 mg PO DAILY 10/25/16 Citalopram Hydrobromide [Celexa -] 10 mg PO DAILY 10/25/16 Clonazepam [KlonoPIN] 0.5 mg PO BID 10/25/16 Imipramine HCl [Tofranil -] 75 mg PO HS 10/25/16 Insulin Lispro Protamin/Lispro [Humalog Mix 75-25 Vial] 20 units SQ BID Metformin HCl [Metformin HCl ER] 500 mg PO BID 10/25/16 Family Disease History - Family Disease History Family History: Unable to Obtain Review of Systems Unable to obtain ROS, reason: clinical condition Physical Exam Vital Sings: Vital Signs Temperature 98.2 F 10/26/16 09:00 Pulse Rate 110 H 10/26/16 11:15 Respiratory Rate 30 H 10/26/16 09:00 Blood Pressure 113/70 10/26/16 09:00 O2 Sat by Pulse Oximetry (%) 95 10/26/16 14:20 Constitutional: Yes: Anxious, Moderate Distress Eyes: Yes: Conjunctiva Clear, EOM Intact HENT: Yes: Atraumatic, Normocephalic Neck: Yes: Supple, Trachea Midline Cardiovascular: Yes: Tachycardia Respiratory: Yes: Rhonchi ...Clubbing: No Gastrointestinal: Yes: Normal Bowel Sounds, Soft Edema: No Neurological: Yes: Alert, Oriented Labs: ABG Results ABG pH 7.46 (7.35-7.45) H 10/25/16 18:50 ABG pCO2 at Pt Temp 36.8 mmHg (35-45) 10/25/16 18:50 ABG pO2 at Pt Temp 409.0 mmHg (70-100) H* 10/25/16 18:50 ABG HCO3 25.6 meq/L (22-26) 10/25/16 18:50 ABG O2 Sat (Measured) 100.0 % (90-98.9) H* 10/25/16 18:50 ABG O2 Content 20.6 % vol (15-22) 10/25/16 18:50 ABG Base Excess 2.4 meq/l (-2-2) H 10/25/16 18:50 Imaging - Results Chest X-ray: Report Reviewed, Image Reviewed (bilateral infiltrates) Problem List - Problems (1) Acute respiratory failure with hypoxia Code(s): J96.01 - ACUTE RESPIRATORY FAILURE WITH HYPOXIA (2) Interstitial lung disease Code(s): J84.9 - INTERSTITIAL PULMONARY DISEASE, UNSPECIFIED (3) Pneumonia Code(s): J18.9 - PNEUMONIA, UNSPECIFIED ORGANISM Qualifiers: Pneumonia type: due to unspecified organism Laterality: unspecified laterality Lung location: unspecified part of lung Qualified Code(s) : J18.9 - Pneumonia, unspecified organism (4) Lactic acidosis Code(s): E87.2 - ACIDOSIS (5) Diabetes Code(s): E11.9 - TYPE 2 DIABETES MELLITUS WITHOUT COMPLICATIONS Qualifiers: Diabetes mellitus macular edema: without macular edema Diabetes mellitus lobsterman insulin use: with intermediate use Assessment/Plan Acute Hypoxic Respiratory Failure Interstitial Lung Disease r/o Pneumonia Lactic Acidosis DM BACK - IV antibiotics - f/u cultures - consider ID evaluation as pt recently admitted with pneumonia - IV medrol - inhaled bronchodilators - BiPAP to assist in work of breathing - O2 to keep spO2 >90% - DVT prophylaxis - prognosis guarded Thank you for this consult Jorge Alberto De La Garza MD
--- NOTE | 2016-10-26 14:59 | EKG ---
Test Reason : Blood Pressure : / mmHG Vent. Rate : 114 BPM Atrial Rate : 114 BPM P-R Int : 172 ms QRS Dur : 090 ms QT Int : 316 ms P-R-T Axes : 012 -05 038 degrees QTc Int : 435 ms SINUS TACHYCARDIA WITH FREQUENT PREMATURE VENTRICULAR COMPLEXES MODERATE VOLTAGE CRITERIA FOR LVH, MAY BE NORMAL VARIANT BORDERLINE ECG WHEN COMPARED WITH ECG OF 26-SEP-2016 08:57, PREMATURE VENTRICULAR COMPLEXES ARE NOW PRESENT AR INTERVAL HAS DECREASED Confirmed by JANA PASCAL MD ([id number]) on 10/26/2016 2:59:00 PM Referred By: Confirmed By:JANA PASCAL MD
[2016-10-26] MEDS: ASPIRIN COATED 81 MG TABLET.EC PO SCH (16:38)
--- NOTE | 2016-10-26 21:07 | HP ---
Admitting History and Physical - Primary Care Physician PCP: Eduardo Galdamez - Admission Chief Complaint: SOB History of Present Illness: 76 y/o white male diabetic, hypertensive with anxiety disorder and schizophrenia is a known case of interstitial lung disease who was discharged about a month ago on Prednisone and O2. As per his he has progressively been getting worse with poor appetite and worsening dyspnoea. He claims he has difficulty breathing and generalized weakness. He was brought to ED and found to have O2 sat of 60% and was treated with IV Solu-Medrol, IV Rocephin as the chest Xray showed bilateral lower lobe infiltrates suggestive of pneumonia and BIPAP and was dmitted for further management. History Source: Patient, Family Member Limitations to Obtaining History: No Limitations - Past Medical History Cardiovascular: Yes: HTN. No: Other Pulmonary: Yes: O2 Dependent, Pneumonia, Pulmonary Fibrosis, Other ( interstitial pulmonary fibrosis) Gastrointestinal: Yes: Gastritis, Other (CBD implanteed into the jejunum due to laceration during cholecystectomy) Hepatobiliary: Yes: Other (fatty liver, BACK CIRRHOSIS) Psych: Yes: Anxiety, Depression, Schizophrenia Endocrine: Yes: Diabetes Mellitus, Hypothyroidism Additional Past Medical History: Has been admitted several times due to ascending cholangitis and even bacteremia due to choledochojejunostomy - Past Surgical History Past Surgical History: Yes: Cholecystectomy Additional Past Surgical History: choledochojejunostomy due to laceration of CBD during cholecytectomy - Smoking History Smoking history: Never smoked Have you smoked in the past 12 months: No If you are a former smoker, when did you quit?: 1985 - Alcohol/Substance Use Hx Alcohol Use: No History of Substance Use: reports: None - Social History ADL: Independent History of Recent Travel: No Home Medications - Allergies Allergies/Adverse Reactions: Allergies Allergy/AdvReac Type Severity Reaction Status Date / Time No Known Allergies Allergy Verified 09/25/16 20:04 - Home Medications Home Medications: Ambulatory Orders Amlodipine Besylate 5 mg PO DAILY 10/25/16 Citalopram Hydrobromide [Celexa -] 10 mg PO DAILY 10/25/16 Clonazepam [KlonoPIN] 0.5 mg PO BID 10/25/16 Imipramine HCl [Tofranil -] 75 mg PO HS 10/25/16 Insulin Lispro Protamin/Lispro [Humalog Mix 75-25 Vial] 20 units SQ BID Metformin HCl [Metformin HCl ER] 500 mg PO BID 10/25/16 Review of Systems - Review of Systems Constitutional: reports: Loss of Appetite, Weakness Eyes: reports: No Symptoms HENT: reports: No Symptoms Neck: reports: No Symptoms Cardiovascular: reports: Shortness of Breath Respiratory: reports: Cough, Orthopnea, SOB, SOB on Exertion Gastrointestinal: reports: No Symptoms Genitourinary: reports: No Symptoms Breasts: reports: No Symptoms Reported Musculoskeletal: reports: No Symptoms Integumentary: reports: No Symptoms Neurological: reports: No Symptoms Endocrine: reports: No Symptoms Psychiatric: reports: Anxiety, Depression Physical Examination Vital Signs: Vital Signs Temperature 97.8 F 10/26/16 14:40 Pulse Rate 113 H 10/26/16 14:40 Respiratory Rate 24 10/26/16 14:40 Blood Pressure 123/64 10/26/16 14:40 O2 Sat by Pulse Oximetry (%) 98 10/26/16 17:21 Constitutional: Yes: Calm, Moderate Distress Eyes: Yes: Conjunctiva Clear, EOM Intact HENT: Yes: WNL Neck: Yes: Supple Cardiovascular: Yes: Regular Rate and Rhythm, S1, S2 Respiratory: Yes: On Nasal O2, Rales Gastrointestinal: Yes: Normal Bowel Sounds, Soft Breast(s): Yes: WNL Extremities: Yes: WNL Edema: No Peripheral Pulses WNL: Yes Integumentary: Yes: WNL Neurological: Yes: Alert, Oriented ...Motor Strength: WNL Psychiatric: Yes: Alert, Oriented Imaging - Results Chest X-ray: Report Reviewed, Image Reviewed EKG: Report Reviewed, Image Reviewed Problem List - Problems (1) Acute respiratory failure with hypoxia Assessment/Plan: Was severrely hypoxic on admission and was treated with IV steroids,CPAP and BD with marked improvement and was also treated with IV Rocephin as there were lower lobe infiltrates. Code(s): J96.01 - ACUTE RESPIRATORY FAILURE WITH HYPOXIA (2) Diabetes Assessment/Plan: Due to high dose steroids will have to be treated with sliding scale REG Insulion Code(s): E11.9 - TYPE 2 DIABETES MELLITUS WITHOUT COMPLICATIONS Qualifiers: Diabetes mellitus macular edema: without macular edema Diabetes mellitus terminal system operator insulin use: with senior care use (3) Schizophrenia in remission Code(s): F20.9 - SCHIZOPHRENIA, UNSPECIFIED (4) Interstitial lung disease Assessment/Plan: INterstitial lung fibrosis seems to be getting worse and will need increasing steroids Code(s): J84.9 - INTERSTITIAL PULMONARY DISEASE, UNSPECIFIED (5) Pneumonia Code(s): J18.9 - PNEUMONIA, UNSPECIFIED ORGANISM Qualifiers: Pneumonia type: due to unspecified organism Laterality: unspecified laterality Lung location: unspecified part of lung Qualified Code(s) : J18.9 - Pneumonia, unspecified organism Assessment/Plan Acute respiratory failure, Pneumonia Interstitial Pulmonary fibrosis Diabetes Schizophrenia, Anxiety disorder, Depression. Plan: Continue present steroids IV with BDs and IV antibiotics.
[2016-10-26] MEDS: AZITHROMYCIN 250 MG TABLET PO SCH (22:28)
[2016-10-26] MEDS: ENOXAPARIN NA (PORCINE) 60 MG/0.6 ML DISP.SYRIN SQ SCH (22:30)
[2016-10-26 22:50] LABS: TROPONIN I 0.19 ng/ml (0.00-0.05)
[2016-10-27] MEDS: methylPREDNISolone NA SUCC 40 MG/1 ML VIAL IVPB SCH ×3 (01:26→17:55)
[2016-10-27] MEDS: ALBUTEROL SO4 2.5/IPRATROPIUM 0.5 INH SOL 3 ML VIAL.NEB. NEB SCH ×4 (05:25→23:05)
[2016-10-27] MEDS ORDERED: INSULIN (NOVOLOG) ASPART 100 UNITS/ML 10ML VIAL ONE ×3 (07:39→17:08)
[2016-10-27] MEDS: INSULIN SLIDING SCALE (NOVOLOG) 1 VIAL SQ SCH ×3 (07:40→18:35)
[2016-10-27 08:01] LABS: MCH 32.1 pg (25.7-33.7); MCHC 33.8 g/dl (32.0-35.9); MEAN CELL VOLUME 95.2 fl (80-96); MEAN PLT VOLUME 7.9 fl (7.5-11.1); PLATELET COUNT 388 K/MM3 (134-434); RDW 13.6 % (11.9-15.9); WHITE BLOOD COUNT 28.2 K/mm3 (4.0-10.0)
[2016-10-27] MEDS ORDERED: PT OWN MED DRAWER 7, Y5N ONE ×2 (08:55→21:22)
[2016-10-27] MEDS: AZITHROMYCIN 250 MG TABLET PO SCH (09:00)
[2016-10-27] MEDS: clonazePAM 0.5 MG TABLET PO SCH ×2 (09:00→21:25)
[2016-10-27] MEDS: ENOXAPARIN NA (PORCINE) 60 MG/0.6 ML DISP.SYRIN SQ SCH (09:00)
[2016-10-27] MEDS: ASPIRIN COATED 81 MG TABLET.EC PO SCH (09:00)
[2016-10-27] MEDS: IMIPRAMINE HCL 25 MG TABLET PO SCH ×2 (09:00→21:24)
[2016-10-27] MEDS: cefTRIAXone 1 GM/50 ML BAG (PRE-DOCKED) IVPB SCH (09:01)
--- NOTE | 2016-10-27 10:15 | EKG ---
Test Reason : Blood Pressure : / mmHG Vent. Rate : 101 BPM Atrial Rate : 101 BPM P-R Int : 178 ms QRS Dur : 100 ms QT Int : 342 ms P-R-T Axes : 028 -03 026 degrees QTc Int : 443 ms SINUS TACHYCARDIA MINIMAL VOLTAGE CRITERIA FOR LVH, MAY BE NORMAL VARIANT WHEN COMPARED WITH ECG OF 25-OCT-2016 16:27, PREMATURE VENTRICULAR COMPLEXES ARE NO LONGER PRESENT Confirmed by JORGE ZAMORANO, ARMIDA ([id number]) on 10/27/2016 10:15:05 AM Referred By: ALLYN OSCAR Confirmed By:ARMIDA PATEL MD
--- NOTE | 2016-10-27 10:45 | CON.CARD ---
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 The hx is provided by EMS and the patient's who provided the hx to EMS. The EMS states that the patient has been feeling sick from "yesterday to 1.5 weeks ago". is unsure what medications the patient takes. EMS was called and the patient was satting in the 60's on arrival, he was tachypneic and not talking. He was given 2 duoneb tx 's, 10 of decadron, and placed on a mag drip of 2g's. He improved to the 70's on duoneb. He was also placed on 7.5 PEEP CPAP. The patient was satting in the high 90's on arrival. He was transferred to our bed and had monitors placed. His EKG showed sinus tach with PVC's. CXR unchanged from previous CXR. He was admitted on 09/25 for a similar episode of LYLE. He was found to be in acute resp failure and had PNA. He was treated with IV levaquin and IV rocephin. He was discharged with home 02, cefuroxime, and prednisone. - History Source History Provided By: Patient, Medical Record Limitations to Obtaining History: Other (on BiPAP; difficult to hold conversation.) - Past Medical History Cardio/Vascular: Yes: Aortic Stenosis, HTN. No: Other Pulmonary: Yes: O2 Dependent, Pneumonia, Pulmonary Fibrosis, Other ( interstitial pulmonary fibrosis) Gastrointestinal: Yes: Gastritis, Other (CBD implanteed into the jejunum due to laceration during cholecystectomy) Hepatobiliary: Yes: Other (fatty liver, BACK CIRRHOSIS) Psych: Yes: Anxiety, Depression, Schizophrenia Endocrine: Yes: Diabetes Mellitus, Hypothyroidism - Past Surgical History Past Surgical History: Yes: Cholecystectomy - Alcohol/Substance Use Hx Alcohol Use: No History of Substance Use: reports: None - Smoking History Smoking history: Never smoked Have you smoked in the past 12 months: No If you are a former smoker, when did you quit?: 1985 - Social History ADL: Independent History of Recent Travel: No Home Medications - Allergies Allergies/Adverse Reactions: Allergies Allergy/AdvReac Type Severity Reaction Status Date / Time No Known Allergies Allergy Verified 09/25/16 20:04 - Home Medications Home Medications: Ambulatory Orders Amlodipine Besylate 5 mg PO DAILY 10/25/16 Citalopram Hydrobromide [Celexa -] 10 mg PO DAILY 10/25/16 Clonazepam [KlonoPIN] 0.5 mg PO BID 10/25/16 Imipramine HCl [Tofranil -] 75 mg PO HS 10/25/16 Insulin Lispro Protamin/Lispro [Humalog Mix 75-25 Vial] 20 units SQ BID Metformin HCl [Metformin HCl ER] 500 mg PO BID 10/25/16 Family Disease History - Family Disease History Family History: Denies Review of Systems - Review of Systems Constitutional: reports: Weakness Eyes: reports: No Symptoms HENT: reports: No Symptoms Neck: reports: No Symptoms Cardiovascular: reports: Shortness of Breath Respiratory: reports: SOB Gastrointestinal: reports: No Symptoms Genitourinary: reports: No Symptoms Musculoskeletal: reports: Muscle Weakness Integumentary: reports: No Symptoms Neurological: reports: Weakness Endocrine: reports: No Symptoms Hematology/Lymphatic: reports: No Symptoms Psychiatric: reports: No Symptoms - Risk Factors Known Risk Factors: Yes: Age, Gender Vital Signs: Vital Signs Temperature 97.6 F 10/27/16 08:21 Pulse Rate 86 10/27/16 10:21 Respiratory Rate 32 H 10/27/16 08:21 Blood Pressure 115/51 10/27/16 08:21 O2 Sat by Pulse Oximetry (%) 100 10/27/16 10:21 Eyes: Yes: WNL HENT: Yes: WNL Neck: Yes: WNL Respiratory: Yes: Regular Gastrointestinal: Yes: Soft Renal/: No: Anuria Cardiovascular: Yes: Regular Rate and Rhythm JVD: No Carotid Bruit: No PMI: Non-Displaced Heart Sounds: Yes: S1, S2 Murmur: Yes: Systolic Murmur, Grade 3 Musculoskeletal: Yes: Muscle Weakness Extremities: Yes: WNL Edema: No Peripheral Pulses WNL: Yes Integumentary: Yes: WNL Neurological: Yes: WNL - Other Data Labs, Other Data: CBC, BMP 10/27/16 07:30 INR, PTT INR 1.17 (0.82-1.09) H 10/25/16 16:50 Troponin, BNP 10/26/16 21:30 Troponin I 0.19 H D Troponin, BNP 10/26/16 21:30 Troponin I 0.19 H D Imaging - Results Chest X-ray: Image Reviewed (ISLD) Other: Image Reviewed (telemetry: NSR: periods of sinus tachycardia) Problem List - Problems (1) Diabetes Assessment/Plan: on Insulin. Prolbematic giving ACEI due to hyperkalemia. Code(s): E11.9 - TYPE 2 DIABETES MELLITUS WITHOUT COMPLICATIONS Qualifiers: Diabetes mellitus macular edema: without macular edema Diabetes mellitus mcfp insulin use: with director long term care use (2) Schizophrenia in remission Code(s): F20.9 - SCHIZOPHRENIA, UNSPECIFIED (3) Anxiety Code(s): F41.9 - ANXIETY DISORDER, UNSPECIFIED (4) Hypothyroid Code(s): E03.9 - HYPOTHYROIDISM, UNSPECIFIED (5) Interstitial lung disease Assessment/Plan: F/u with burn table operator for O2, bronchodilators. Code(s): J84.9 - INTERSTITIAL PULMONARY DISEASE, UNSPECIFIED (6) Hyperlipidemia Code(s): E78.5 - HYPERLIPIDEMIA, UNSPECIFIED (7) Aortic stenosis Assessment/Plan: f/u ECHO. Code(s): I35.0 - NONRHEUMATIC AORTIC (VALVE) STENOSIS
--- NOTE | 2016-10-27 12:14 | PN ---
Progress Note (short form) - Note Progress Note: PULMONARY Remains on BiPAP with 45% FiO2. Saturating 98%, states breathing slightly improved. No fevers recorded. Last Vital Signs Temp Pulse Resp BP Pulse Ox 97.6 F 86 32 H 115/51 100 10/27/16 08:21 10/27/16 10:21 10/27/16 08:21 10/27/16 08:21 10/27/16 10:21 Gen: less tachypneic on BiPAP Heart: RRR Lung: bibasilar rales Abd: soft, nontender Ext: no edema CBC, BMP 10/27/16 07:30 10/25/16 16:50 Active Medications Albuterol/Ipratropium (Duoneb -) 1 amp NEB QIDR [facility] Last Admin: 10/27/16 11:43 Dose: 1 amp Aspirin (Ecotrin -) 162 mg PO DAILY [facility] Last Admin: 10/27/16 09:00 Dose: 162 mg Azithromycin (Zithromax -) 500 mg PO DAILY [facility] Last Admin: 10/27/16 09:00 Dose: 500 mg Ceftriaxone Sodium (Rocephin 1gm Ivpb (Pre-Docked)) 1 gm IVPB DAILY [facility] Last Admin: 10/27/16 09:01 Dose: 1 gm Clonazepam (Klonopin -) 0.5 mg PO BID [facility] Last Admin: 10/27/16 09:00 Dose: 0.5 mg Enoxaparin Sodium (Lovenox -) 60 mg SQ DAILY [facility] Last Admin: 10/27/16 09:00 Dose: 60 mg Imipramine HCl (Tofranil -) 75 mg PO HS [facility] Last Admin: 10/26/16 22:28 Dose: 75 mg Imipramine HCl (Tofranil -) 25 mg PO DAILY [facility] Last Admin: 10/27/16 09:00 Dose: 25 mg Insulin Aspart (Novolog Vial Sliding Scale -) 1 vial SQ TIDAC [facility] PRN Reason: Protocol Last Admin: 10/27/16 07:40 Dose: 16 units Methylprednisolone Sodium Succinate (Solu-Medrol -) 40 mg IVPB Q8H-IV [facility] Last Admin: 10/27/16 09:00 Dose: 40 mg A/P Acute Hypoxic Respiratory Failure Interstitial Lung Disease r/o Pneumonia Lactic Acidosis DM BACK - continue antibiotics - f/u cultures - consider ID evaluation as pt recently admitted with pneumonia - continue IV medrol - inhaled bronchodilators - BiPAP to assist in work of breathing - O2 to keep spO2 >90%, can attempt ventimask 40% FiO2 - DVT prophylaxis - prognosis guarded Problem List - Problems (1) Acute respiratory failure with hypoxia Code(s): J96.01 - ACUTE RESPIRATORY FAILURE WITH HYPOXIA (2) Interstitial lung disease Code(s): J84.9 - INTERSTITIAL PULMONARY DISEASE, UNSPECIFIED (3) Pneumonia Code(s): J18.9 - PNEUMONIA, UNSPECIFIED ORGANISM Qualifiers: Pneumonia type: due to unspecified organism Laterality: unspecified laterality Lung location: unspecified part of lung Qualified Code(s) : J18.9 - Pneumonia, unspecified organism (4) Lactic acidosis Code(s): E87.2 - ACIDOSIS (5) Diabetes Code(s): E11.9 - TYPE 2 DIABETES MELLITUS WITHOUT COMPLICATIONS Qualifiers: Diabetes mellitus macular edema: without macular edema Diabetes mellitus intermediate designer insulin use: with mcfp use
[2016-10-27 13:04] LABS: PLATELET ESTIMATE ADEQUATE
--- NOTE | 2016-10-27 15:25 | PN ---
Progress Note (short form) - Note Progress Note: ^^^^^^^^^^^^^^^^^^^^^^^ cover for Dr Galdamez Current Medications Albuterol/Ipratropium (Duoneb -) 1 amp NEB QIDR [facility] Last Admin: 10/27/16 11:43 Dose: 1 amp Aspirin (Ecotrin -) 162 mg PO DAILY [facility] Last Admin: 10/27/16 09:00 Dose: 162 mg Azithromycin (Zithromax -) 500 mg PO DAILY [facility] Last Admin: 10/27/16 09:00 Dose: 500 mg Ceftriaxone Sodium (Rocephin 1gm Ivpb (Pre-Docked)) 1 gm IVPB DAILY [facility] Last Admin: 10/27/16 09:01 Dose: 1 gm Clonazepam (Klonopin -) 0.5 mg PO BID [facility] Last Admin: 10/27/16 09:00 Dose: 0.5 mg Enoxaparin Sodium (Lovenox -) 60 mg SQ DAILY [facility] Last Admin: 10/27/16 09:00 Dose: 60 mg Imipramine HCl (Tofranil -) 75 mg PO HS [facility] Last Admin: 10/26/16 22:28 Dose: 75 mg Imipramine HCl (Tofranil -) 25 mg PO DAILY [facility] Last Admin: 10/27/16 09:00 Dose: 25 mg Insulin Aspart (Novolog Vial Sliding Scale -) 1 vial SQ TIDAC [facility] PRN Reason: Protocol Last Admin: 10/27/16 12:19 Dose: 16 units Methylprednisolone Sodium Succinate (Solu-Medrol -) 40 mg IVPB Q8H-IV [facility] Last Admin: 10/27/16 09:00 Dose: 40 mg Laboratory Results - last 24 hr 10/26/16 10/26/16 10/27/16 16:37 21:30 05:53 WBC RBC Hgb Hct MCV MCH MCHC RDW Plt Count MPV Neutrophils % Neutrophils % (Manual) Band Neuts % (Manual) Lymphocytes % Lymphocytes % (Manual) Monocytes % (Manual) Platelet Estimate POC Glucometer 315 343 Creatine Kinase 88 Troponin I 0.19 H D TSH 10/27/16 10/27/16 10/27/16 07:30 07:30 11:37 WBC 28.2 H D RBC 4.20 Hgb 13.5 Hct 40.0 MCV 95.2 MCH 32.1 MCHC 33.8 RDW 13.6 Plt Count 388 MPV 7.9 Neutrophils % Y Neutrophils % (Manual) 97 H* Band Neuts % (Manual) No Result Required. Lymphocytes % Y Lymphocytes % (Manual) 2 L Monocytes % (Manual) 1 L Platelet Estimate Adequate POC Glucometer 339 Creatine Kinase Troponin I TSH 0.41 D Vital Signs Temperature 97.4 F L 10/27/16 14:20 Pulse Rate 108 H 10/27/16 14:20 Respiratory Rate 28 H 10/27/16 14:20 Blood Pressure 145/72 10/27/16 14:20 O2 Sat by Pulse Oximetry (%) 100 10/27/16 10:21 CC: No c/o pain (Nurse states that he gets dyspneic off the O2 mask) ``````````````````````````````` skin--NL color; no rashes appreciated eyes--midline lungs--bilat BS heard heart--RRR abd--soft, NT ext--trace edema of LE's neuro--awake; responsive; able to answer basic questions; no gross focal deficits ````````````````````````````````````````````` Summ > Acute resp failure--hypoxic; cause uncertain; presumed infection; on dual Abs ; seems to have improved w/ IV steroids & Neb Tx (see Pulm Note). >High TNI--will repeat; EKG just showed sinus tach; could be "demand" related in the face of Hypoxia > High glucose--?steroid induced > High WBC--steroid induced > affective Dz--on TCA & Clonazapam ``````````````````````````````````` Dr Pickard for Dr Galdamez
[2016-10-28] MEDS: methylPREDNISolone NA SUCC 40 MG/1 ML VIAL IVPB SCH ×3 (01:34→17:23)
[2016-10-28] MEDS: INSULIN SLIDING SCALE (NOVOLOG) 1 VIAL SQ SCH ×3 (06:21→17:23)
[2016-10-28] MEDS: ALBUTEROL SO4 2.5/IPRATROPIUM 0.5 INH SOL 3 ML VIAL.NEB. NEB SCH ×4 (06:55→23:54)
[2016-10-28 07:31] LABS: MCH 32.7 pg (25.7-33.7); MCHC 34.3 g/dl (32.0-35.9); MEAN CELL VOLUME 95.2 fl (80-96); MEAN PLT VOLUME 8.2 fl (7.5-11.1); PLATELET COUNT 379 K/MM3 (134-434); RDW 13.6 % (11.9-15.9); WHITE BLOOD COUNT 22.3 K/mm3 (4.0-10.0)
[2016-10-28 07:58] LABS: ANION GAP 8 (8-16); CALCIUM 8.7 mg/dL (8.5-10.1); CO2 29 mmol/L (21-32); MAGNESIUM 2.5 mg/dL (1.8-2.4)
[2016-10-28 08:04] LABS: CPK 29 IU/L (39-308); CREATININE 0.9 mg/dL (0.7-1.3)
[2016-10-28 08:17] LABS: GLUCOSE,RANDOM 338 mg/dL (74-106)
[2016-10-28] MEDS ORDERED: PT OWN MED DRAWER 7, Y5N ONE ×3 (09:44→22:35)
[2016-10-28] MEDS: AZITHROMYCIN 250 MG TABLET PO SCH (09:56)
[2016-10-28] MEDS: cefTRIAXone 1 GM/50 ML BAG (PRE-DOCKED) IVPB SCH (09:56)
[2016-10-28] MEDS: ENOXAPARIN NA (PORCINE) 60 MG/0.6 ML DISP.SYRIN SQ SCH (09:56)
[2016-10-28] MEDS: ASPIRIN COATED 81 MG TABLET.EC PO SCH (09:57)
[2016-10-28] MEDS: clonazePAM 0.5 MG TABLET PO SCH ×2 (09:57→22:36)
[2016-10-28] MEDS: IMIPRAMINE HCL 25 MG TABLET PO SCH ×2 (09:57→22:37)
[2016-10-28] MEDS ORDERED: INSULIN (NOVOLOG) ASPART 100 UNITS/ML 10ML VIAL ONE (12:39)
--- NOTE | 2016-10-28 14:54 | PN ---
Progress Note, Physician Chief Complaint: Pt still dyspneic at rest, but feels more comfortable. 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 The hx is provided by EMS and the patient's who provided the hx to EMS. The EMS states that the patient has been feeling sick from "yesterday to 1.5 weeks ago". is unsure what medications the patient takes. EMS was called and the patient was satting in the 60's on arrival, he was tachypneic and not talking. He was given 2 duoneb tx 's, 10 of decadron, and placed on a mag drip of 2g's. He improved to the 70's on duoneb. He was also placed on 7.5 PEEP CPAP. The patient was satting in the high 90's on arrival. He was transferred to our bed and had monitors placed. His EKG showed sinus tach with PVC's. CXR unchanged from previous CXR. He was admitted on 09/25 for a similar episode of LYLE. He was found to be in acute resp failure and had PNA. He was treated with IV levaquin and IV rocephin. He was discharged with home 02, cefuroxime, and prednisone. - Current Medication List Current Medications: Active Medications Albuterol/Ipratropium (Duoneb -) 1 amp NEB QIDR [facility] Last Admin: 10/28/16 11:09 Dose: 1 amp Aspirin (Ecotrin -) 162 mg PO DAILY [facility] Last Admin: 10/28/16 09:57 Dose: 162 mg Azithromycin (Zithromax -) 500 mg PO DAILY [facility] Last Admin: 10/28/16 09:56 Dose: 500 mg Ceftriaxone Sodium (Rocephin 1gm Ivpb (Pre-Docked)) 1 gm IVPB DAILY [facility] Last Admin: 10/28/16 09:56 Dose: 1 gm Clonazepam (Klonopin -) 0.5 mg PO BID [facility] Last Admin: 10/28/16 09:57 Dose: 0.5 mg Enoxaparin Sodium (Lovenox -) 60 mg SQ DAILY [facility] Last Admin: 10/28/16 09:56 Dose: 60 mg Imipramine HCl (Tofranil -) 75 mg PO HS [facility] Last Admin: 10/27/16 21:24 Dose: 75 mg Imipramine HCl (Tofranil -) 25 mg PO DAILY [facility] Last Admin: 10/28/16 09:57 Dose: 25 mg Insulin Aspart (Novolog Vial Sliding Scale -) 1 vial SQ TIDAC [facility] PRN Reason: Protocol Last Admin: 10/28/16 12:39 Dose: 18 units Methylprednisolone Sodium Succinate (Solu-Medrol -) 40 mg IVPB Q8H-IV [facility] Last Admin: 10/28/16 09:56 Dose: 40 mg - Objective Vital Signs: Vital Signs Temperature 98 F 10/28/16 06:00 Pulse Rate 94 H 10/28/16 10:59 Respiratory Rate 24 10/28/16 10:00 Blood Pressure 130/76 10/28/16 06:00 O2 Sat by Pulse Oximetry (%) 97 10/28/16 10:59 Constitutional: Yes: Calm Eyes: Yes: WNL HENT: Yes: WNL Neck: Yes: WNL Cardiovascular: Yes: Murmur, S1, S2 Respiratory: Yes: Tachypnea Gastrointestinal: Yes: Soft ...Rectal Exam: Yes: Deferred Genitourinary: No: Anuria Musculoskeletal: Yes: Muscle Weakness Extremities: Yes: Cool Edema: No Peripheral Pulses WNL: Yes Integumentary: Yes: WNL Neurological: Yes: Alert, Oriented Psychiatric: Yes: Other (hxd schizophrenia) Labs: CBC, BMP 10/28/16 06:35 10/28/16 06:35 INR, PTT INR 1.17 (0.82-1.09) H 10/25/16 16:50 - ....Imaging Other: Image Reviewed (telemetry: NSR; periods of sinus tachycardia) Problem List - Problems (1) Diabetes Assessment/Plan: on Insulin. Prolbematic giving ACEI due to hyperkalemia. Decrease ASA to 81 mg daily, unless specific reason to keep at higher dose. Code(s): E11.9 - TYPE 2 DIABETES MELLITUS WITHOUT COMPLICATIONS Qualifiers: Diabetes mellitus macular edema: without macular edema Diabetes mellitus technician terminal and repeater insulin use: with technician terminal and repeater use (2) Schizophrenia in remission Code(s): F20.9 - SCHIZOPHRENIA, UNSPECIFIED (3) Anxiety Code(s): F41.9 - ANXIETY DISORDER, UNSPECIFIED (4) Interstitial lung disease Assessment/Plan: F/u with medical office rep for O2, bronchodilators. On BiPap. Code(s): J84.9 - INTERSTITIAL PULMONARY DISEASE, UNSPECIFIED (5) Hyperlipidemia Assessment/Plan: f/u lipid profile (LDL >140 years ago). Code(s): E78.5 - HYPERLIPIDEMIA, UNSPECIFIED (6) Aortic stenosis Assessment/Plan: ECHO: normal LVEF; moderately severe ; mild-moderate pulmonary HTN. Code(s): I35.0 - NONRHEUMATIC AORTIC (VALVE) STENOSIS (7) Sinus tachycardia Assessment/Plan: avoid dehydration (BUN 22-->41). pain managment. Respiratory treatments. Code(s): R00.0 - TACHYCARDIA, UNSPECIFIED
--- NOTE | 2016-10-28 15:49 | PN ---
Progress Note (short form) - Note Progress Note: PULMONARY Breathing better today. Saturating 98% on nasal cannula. No fevers recorded. Last Vital Signs Temp Pulse Resp BP Pulse Ox 97.5 F L 94 H 18 126/72 97 10/28/16 14:45 10/28/16 14:45 10/28/16 14:45 10/28/16 14:45 10/28/16 10:59 Gen: less tachypneic on BiPAP Heart: RRR Lung: bibasilar rales Abd: soft, nontender Ext: no edema CBC, BMP 10/28/16 06:35 10/28/16 06:35 Active Medications Albuterol/Ipratropium (Duoneb -) 1 amp NEB QIDR [facility] Last Admin: 10/28/16 11:09 Dose: 1 amp Aspirin (Ecotrin -) 162 mg PO DAILY [facility] Last Admin: 10/28/16 09:57 Dose: 162 mg Azithromycin (Zithromax -) 500 mg PO DAILY [facility] Last Admin: 10/28/16 09:56 Dose: 500 mg Ceftriaxone Sodium (Rocephin 1gm Ivpb (Pre-Docked)) 1 gm IVPB DAILY [facility] Last Admin: 10/28/16 09:56 Dose: 1 gm Clonazepam (Klonopin -) 0.5 mg PO BID [facility] Last Admin: 10/28/16 09:57 Dose: 0.5 mg Enoxaparin Sodium (Lovenox -) 60 mg SQ DAILY [facility] Last Admin: 10/28/16 09:56 Dose: 60 mg Imipramine HCl (Tofranil -) 75 mg PO HS [facility] Last Admin: 10/27/16 21:24 Dose: 75 mg Imipramine HCl (Tofranil -) 25 mg PO DAILY [facility] Last Admin: 10/28/16 09:57 Dose: 25 mg Insulin Aspart (Novolog Vial Sliding Scale -) 1 vial SQ TIDAC [facility] PRN Reason: Protocol Last Admin: 10/28/16 12:39 Dose: 18 units Methylprednisolone Sodium Succinate (Solu-Medrol -) 40 mg IVPB Q8H-IV [facility] Last Admin: 10/28/16 09:56 Dose: 40 mg A/P Acute Hypoxic Respiratory Failure Interstitial Lung Disease r/o Pneumonia Lactic Acidosis DM BACK - continue antibiotics - continue IV medrol, will taper in AM if continues to improve - inhaled bronchodilators - BiPAP as needed to assist in work of breathing - O2 to keep spO2 >90% - DVT prophylaxi Problem List - Problems (1) Acute respiratory failure with hypoxia Code(s): J96.01 - ACUTE RESPIRATORY FAILURE WITH HYPOXIA (2) Interstitial lung disease Code(s): J84.9 - INTERSTITIAL PULMONARY DISEASE, UNSPECIFIED (3) Pneumonia Code(s): J18.9 - PNEUMONIA, UNSPECIFIED ORGANISM Qualifiers: Pneumonia type: due to unspecified organism Laterality: unspecified laterality Lung location: unspecified part of lung Qualified Code(s) : J18.9 - Pneumonia, unspecified organism (4) Lactic acidosis Code(s): E87.2 - ACIDOSIS (5) Diabetes Code(s): E11.9 - TYPE 2 DIABETES MELLITUS WITHOUT COMPLICATIONS Qualifiers: Diabetes mellitus macular edema: without macular edema Diabetes mellitus termite technician insulin use: with termite technician use
--- NOTE | 2016-10-28 20:59 | PN ---
Progress Note, Physician History of Present Illness: Continues to have SOB but able to feel ok with nasal O2 with O2 sat 0f 94%. Has been using BIPAP at night. No cough or sputum production - Current Medication List Current Medications: Active Medications Albuterol/Ipratropium (Duoneb -) 1 amp NEB QIDR [facility] Last Admin: 10/28/16 11:09 Dose: 1 amp Aspirin (Ecotrin -) 162 mg PO DAILY [facility] Last Admin: 10/28/16 09:57 Dose: 162 mg Azithromycin (Zithromax -) 500 mg PO DAILY [facility] Last Admin: 10/28/16 09:56 Dose: 500 mg Ceftriaxone Sodium (Rocephin 1gm Ivpb (Pre-Docked)) 1 gm IVPB DAILY [facility] Last Admin: 10/28/16 09:56 Dose: 1 gm Clonazepam (Klonopin -) 0.5 mg PO BID [facility] Last Admin: 10/28/16 09:57 Dose: 0.5 mg Enoxaparin Sodium (Lovenox -) 60 mg SQ DAILY [facility] Last Admin: 10/28/16 09:56 Dose: 60 mg Imipramine HCl (Tofranil -) 75 mg PO HS [facility] Last Admin: 10/27/16 21:24 Dose: 75 mg Imipramine HCl (Tofranil -) 25 mg PO DAILY [facility] Last Admin: 10/28/16 09:57 Dose: 25 mg Insulin Aspart (Novolog Vial Sliding Scale -) 1 vial SQ TIDAC [facility] PRN Reason: Protocol Methylprednisolone Sodium Succinate (Solu-Medrol -) 40 mg IVPB Q8H-IV [facility] Last Admin: 10/28/16 17:23 Dose: 40 mg - Objective Vital Signs: Vital Signs Temperature 97.8 F 10/28/16 18:00 Pulse Rate 86 10/28/16 18:00 Respiratory Rate 18 10/28/16 18:00 Blood Pressure 122/68 10/28/16 18:00 O2 Sat by Pulse Oximetry (%) 97 10/28/16 10:59 Constitutional: Yes: Calm, Moderate Distress Eyes: Yes: Conjunctiva Clear, EOM Intact HENT: Yes: WNL Neck: Yes: Supple Cardiovascular: Yes: Regular Rate and Rhythm, S1, S2 Respiratory: Yes: Rales Gastrointestinal: Yes: Normal Bowel Sounds, Soft Genitourinary: Yes: WNL Musculoskeletal: Yes: WNL Extremities: Yes: WNL Edema: No Peripheral Pulses WNL: Yes Integumentary: Yes: WNL Neurological: Yes: Alert, Oriented ...Motor Strength: WNL Psychiatric: Yes: Alert, Oriented Labs: CBC, BMP 10/28/16 06:35 10/28/16 06:35 INR, PTT INR 1.17 (0.82-1.09) H 10/25/16 16:50 Problem List - Problems (1) Acute respiratory failure with hypoxia Assessment/Plan: Continuies to have SOB with nasal O2 at 4 liters /mt but O2 sat at 94%. Code(s): J96.01 - ACUTE RESPIRATORY FAILURE WITH HYPOXIA (2) Diabetes Assessment/Plan: Has been having high BGM due to steroids will adjust dose of Insulin Code(s): E11.9 - TYPE 2 DIABETES MELLITUS WITHOUT COMPLICATIONS Qualifiers: Diabetes mellitus macular edema: without macular edema Diabetes mellitus nursing home insulin use: with nursing home use (3) Schizophrenia in remission Code(s): F20.9 - SCHIZOPHRENIA, UNSPECIFIED (4) Interstitial lung disease Assessment/Plan: Appears like his pulmonary function is deteriorating and will need detention steroids and BIPAP Code(s): J84.9 - INTERSTITIAL PULMONARY DISEASE, UNSPECIFIED (5) Pneumonia Code(s): J18.9 - PNEUMONIA, UNSPECIFIED ORGANISM Qualifiers: Pneumonia type: due to unspecified organism Laterality: unspecified laterality Lung location: unspecified part of lung Qualified Code(s) : J18.9 - Pneumonia, unspecified organism Assessment/Plan Interstitial pulmonary fibrosis: He has become O2 dependent and also requiring BIPAP at night. IV steroids to continue Pneumonia; Will cotinue IV Rocephin and Azithromycin PO. Diabetes :BGM very high due to steroids ,sliding scale increased
[2016-10-29] MEDS: INSULIN SLIDING SCALE (NOVOLOG) 1 VIAL SQ SCH ×4 (01:30→17:19)
[2016-10-29] MEDS: methylPREDNISolone NA SUCC 40 MG/1 ML VIAL IVPB SCH ×3 (01:36→21:54)
[2016-10-29] MEDS: ALBUTEROL SO4 2.5/IPRATROPIUM 0.5 INH SOL 3 ML VIAL.NEB. NEB SCH ×4 (06:59→23:01)
[2016-10-29] MEDS ORDERED: INSULIN SLIDING SCALE (NOVOLOG) 1 VIAL SQ SCH (07:00)
[2016-10-29 07:28] LABS: BASOPHIL 0.2 % (0-2.0); MCH 32.8 pg (25.7-33.7); MCHC 34.6 g/dl (32.0-35.9); MEAN PLT VOLUME 8.1 fl (7.5-11.1); NEUTROPHILS 89.2 % (42.8-82.8); PLATELET COUNT 361 K/MM3 (134-434); RDW 13.3 % (11.9-15.9); WHITE BLOOD COUNT 20.4 K/mm3 (4.0-10.0)
[2016-10-29] MEDS ORDERED: PT OWN MED DRAWER 7, Y5N ONE ×2 (09:27→21:51)
[2016-10-29] MEDS: AZITHROMYCIN 250 MG TABLET PO SCH (09:40)
[2016-10-29] MEDS: ASPIRIN COATED 81 MG TABLET.EC PO SCH (09:40)
[2016-10-29] MEDS: clonazePAM 0.5 MG TABLET PO SCH ×2 (09:41→21:54)
[2016-10-29] MEDS: IMIPRAMINE HCL 25 MG TABLET PO SCH ×2 (09:41→21:54)
[2016-10-29] MEDS: ENOXAPARIN NA (PORCINE) 60 MG/0.6 ML DISP.SYRIN SQ SCH (09:42)
[2016-10-29] MEDS: cefTRIAXone 1 GM/50 ML BAG (PRE-DOCKED) IVPB SCH (09:42)
[2016-10-29] MEDS ORDERED: INSULIN (NOVOLOG) ASPART 100 UNITS/ML 10ML VIAL ONE ×2 (11:56→16:18)
[2016-10-29 12:37] LABS: CHOLESTEROL 178 mg/dL (50-200); LDL CHOLESTEROL (ONLY SJRH) 125 mg/dL (5-100)
--- NOTE | 2016-10-29 12:48 | EKG ---
Test Reason : Blood Pressure : / mmHG Vent. Rate : 098 BPM Atrial Rate : 098 BPM P-R Int : 164 ms QRS Dur : 094 ms QT Int : 340 ms P-R-T Axes : 007 -03 040 degrees QTc Int : 434 ms NORMAL SINUS RHYTHM MINIMAL VOLTAGE CRITERIA FOR LVH, MAY BE NORMAL VARIANT BORDERLINE ECG WHEN COMPARED WITH ECG OF 27-OCT-2016 09:18, NO SIGNIFICANT CHANGE WAS FOUND Confirmed by KURT ZAMORANO, ALLYN ([id number]) on 10/29/2016 12:47:36 PM Referred By: Demario PERDOMO Confirmed By:ALLYN HICKS MD
--- NOTE | 2016-10-29 14:00 | PN ---
Progress Note (short form) - Note Progress Note: ######################## cover for Dr Galdamez Current Medications Albuterol/Ipratropium (Duoneb -) 1 amp NEB QIDR [facility] Last Admin: 10/29/16 11:07 Dose: 1 amp Aspirin (Ecotrin -) 162 mg PO DAILY [facility] Last Admin: 10/29/16 09:40 Dose: 162 mg Azithromycin (Zithromax -) 500 mg PO DAILY [facility] Last Admin: 10/29/16 09:40 Dose: 500 mg Ceftriaxone Sodium (Rocephin 1gm Ivpb (Pre-Docked)) 1 gm IVPB DAILY [facility] Last Admin: 10/29/16 09:42 Dose: 1 gm Clonazepam (Klonopin -) 0.5 mg PO BID [facility] Last Admin: 10/29/16 09:41 Dose: 0.5 mg Enoxaparin Sodium (Lovenox -) 60 mg SQ DAILY [facility] Last Admin: 10/29/16 09:42 Dose: 60 mg Imipramine HCl (Tofranil -) 75 mg PO HS [facility] Last Admin: 10/28/16 22:37 Dose: 75 mg Imipramine HCl (Tofranil -) 25 mg PO DAILY [facility] Last Admin: 10/29/16 09:41 Dose: 25 mg Insulin Aspart (Novolog Vial Sliding Scale -) 1 vial SQ TIDAC [facility] PRN Reason: Protocol Last Admin: 10/29/16 11:53 Dose: 26 units Methylprednisolone Sodium Succinate (Solu-Medrol -) 40 mg IVPB Q8H-IV [facility] Last Admin: 10/29/16 09:41 Dose: 40 mg Laboratory Results - last 24 hr 10/28/16 10/28/16 10/28/16 06:35 16:33 17:00 WBC RBC Hgb Hct MCV MCH MCHC RDW Plt Count MPV Neutrophils % Lymphocytes % Monocytes % Eosinophils % Basophils % Sodium 138 Potassium 5.0 Chloride 101 Carbon Dioxide 29 Anion Gap 8 BUN 41 H D Creatinine 0.9 POC Glucometer 317 Random Glucose 338 H* D Hemoglobin A1c % 8.2 H D Calcium 8.7 Magnesium 2.5 H Creatine Kinase 29 L Troponin I 0.10 H D Triglycerides 161 H D Cholesterol 178 D Total LDL Cholesterol 125 H D HDL Cholesterol 34 L D 10/28/16 10/29/1610/29/17 21:33 06: 06:30 WBC 20.4 H RBC 4.23 Hgb 13.9 Hct 40.2 MCV 95.0 MCH 32.8 MCHC 34.6 RDW 13.3 Plt Count 361 MPV 8.1 Neutrophils % 89.2 H Lymphocytes % 8.8 D Monocytes % 1.8 L Eosinophils % 0.0 D Basophils % 0.2 Sodium Potassium Chloride Carbon Dioxide Anion Gap BUN Creatinine POC Glucometer 205 318 Random Glucose Hemoglobin A1c % Calcium Magnesium Creatine Kinase Troponin I Triglycerides Cholesterol Total LDL Cholesterol HDL Cholesterol 10/29/16 11:52 WBC RBC Hgb Hct MCV MCH MCHC RDW Plt Count MPV Neutrophils % Lymphocytes % Monocytes % Eosinophils % Basophils % Sodium Potassium Chloride Carbon Dioxide Anion Gap BUN Creatinine POC Glucometer 376 Random Glucose Hemoglobin A1c % Calcium Magnesium Creatine Kinase Troponin I Triglycerides Cholesterol Total LDL Cholesterol HDL Cholesterol Vital Signs Temperature 97.4 F L 10/29/16 09:00 Pulse Rate 78 10/29/16 10:19 Respiratory Rate 27 H 10/29/16 09:00 Blood Pressure 113/61 10/29/16 09:00 O2 Sat by Pulse Oximetry (%) 94 L 10/29/16 10:19 CC: SOB on exertion ``````````````````````````````` skin--NL color; no rashes appreciated eyes--midline lungs--bilat BS heard heart--RRR abd--soft, NT ext--trace edema of LE's; stasis changes neuro--awake; responsive; able to answer basic questions; no gross focal deficits ````````````````````````````````````````````` Summ > Acute resp failure--hypoxic, but Sats okay on NC at rest, but gets dyspneic on exertion; CXR still abNL; presumed PNA; Cont IV Abs & Steroids. > Azotemia--Bun [place] fron 20 now at 40; will hydrate mildly >High TNI--trending down; seen by Cardiology > High glucose--?steroid induced; on Coverage > High WBC--likely steroid induced; steroids being tapered > affective Dz--on TCA (which could be contributing to Tachycardia) & Clonazapam ``````````````````````````````````` Dr Pickard for Dr Galdamez
--- NOTE | 2016-10-29 14:43 | PN ---
Progress Note (short form) - Note Progress Note: PULMONARY Breathing slowly improving. Saturating 98% on nasal cannula. No fevers recorded. Last Vital Signs Temp Pulse Resp BP Pulse Ox 98 F 93 H 22 128/69 94 L 10/29/16 14:11 10/29/16 14:11 10/29/16 14:11 10/29/16 14:11 10/29/16 10:19 Gen: less tachypneic Heart: RRR Lung: bibasilar rales Abd: soft, nontender Ext: no edema CBC, BMP 10/29/16 06:30 10/28/16 06:35 Active Medications Albuterol/Ipratropium (Duoneb -) 1 amp NEB QIDR [facility] Last Admin: 10/29/16 11:07 Dose: 1 amp Aspirin (Ecotrin -) 162 mg PO DAILY [facility] Last Admin: 10/29/16 09:40 Dose: 162 mg Azithromycin (Zithromax -) 500 mg PO DAILY [facility] Last Admin: 10/29/16 09:40 Dose: 500 mg Ceftriaxone Sodium (Rocephin 1gm Ivpb (Pre-Docked)) 1 gm IVPB DAILY [facility] Last Admin: 10/29/16 09:42 Dose: 1 gm Clonazepam (Klonopin -) 0.5 mg PO BID [facility] Last Admin: 10/29/16 09:41 Dose: 0.5 mg Enoxaparin Sodium (Lovenox -) 60 mg SQ DAILY [facility] Last Admin: 10/29/16 09:42 Dose: 60 mg Sodium Chloride (1/2 Normal Saline) 1,000 mls @ 22 mls/hr IV ASDIR [facility] Imipramine HCl (Tofranil -) 75 mg PO HS [facility] Last Admin: 10/28/16 22:37 Dose: 75 mg Imipramine HCl (Tofranil -) 25 mg PO DAILY [facility] Last Admin: 10/29/16 09:41 Dose: 25 mg Insulin Aspart (Novolog Vial Sliding Scale -) 1 vial SQ TIDAC [facility] PRN Reason: Protocol Last Admin: 10/29/16 11:53 Dose: 26 units Methylprednisolone Sodium Succinate (Solu-Medrol -) 40 mg IVPB Q8H-IV [facility] Last Admin: 10/29/16 09:41 Dose: 40 mg A/P Acute Hypoxic Respiratory Failure Interstitial Lung Disease r/o Pneumonia Lactic Acidosis resolved DM BACK - continue antibiotics - will decrease medrol to q12h - inhaled bronchodilators - BiPAP as needed to assist in work of breathing - O2 to keep spO2 >90% - DVT prophylaxis Problem List - Problems (1) Acute respiratory failure with hypoxia Code(s): J96.01 - ACUTE RESPIRATORY FAILURE WITH HYPOXIA (2) Interstitial lung disease Code(s): J84.9 - INTERSTITIAL PULMONARY DISEASE, UNSPECIFIED (3) Pneumonia Code(s): J18.9 - PNEUMONIA, UNSPECIFIED ORGANISM Qualifiers: Pneumonia type: due to unspecified organism Laterality: unspecified laterality Lung location: unspecified part of lung Qualified Code(s) : J18.9 - Pneumonia, unspecified organism (4) Lactic acidosis Code(s): E87.2 - ACIDOSIS (5) Diabetes Code(s): E11.9 - TYPE 2 DIABETES MELLITUS WITHOUT COMPLICATIONS Qualifiers: Diabetes mellitus macular edema: without macular edema Diabetes mellitus mcc insulin use: with mcc use
[2016-10-29] MEDS: SODIUM CHLORIDE 0.45% 1,000 ML IV SCH (15:01)
--- NOTE | 2016-10-30 | PN ---
Progress Note, Physician Chief Complaint: Pt has no chest pain; still dyspneic and hypoxic on mild exertion. 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 The hx is provided by EMS and the patient's who provided the hx to EMS. The EMS states that the patient has been feeling sick from "yesterday to 1.5 weeks ago". is unsure what medications the patient takes. EMS was called and the patient was satting in the 60's on arrival, he was tachypneic and not talking. He was given 2 duoneb tx 's, 10 of decadron, and placed on a mag drip of 2g's. He improved to the 70's on duoneb. He was also placed on 7.5 PEEP CPAP. The patient was satting in the high 90's on arrival. He was transferred to our bed and had monitors placed. His EKG showed sinus tach with PVC's. CXR unchanged from previous CXR. He was admitted on 09/25 for a similar episode of LYLE. He was found to be in acute resp failure and had PNA. He was treated with IV levaquin and IV rocephin. He was discharged with home 02, cefuroxime, and prednisone. - Current Medication List Current Medications: Active Medications Albuterol/Ipratropium (Duoneb -) 1 amp NEB QIDR [facility] Last Admin: 10/29/16 23:01 Dose: 1 amp Aspirin (Ecotrin -) 162 mg PO DAILY [facility] Last Admin: 10/29/16 09:40 Dose: 162 mg Azithromycin (Zithromax -) 500 mg PO DAILY [facility] Last Admin: 10/29/16 09:40 Dose: 500 mg Ceftriaxone Sodium (Rocephin 1gm Ivpb (Pre-Docked)) 1 gm IVPB DAILY [facility] Last Admin: 10/29/16 09:42 Dose: 1 gm Clonazepam (Klonopin -) 0.5 mg PO BID [facility] Last Admin: 10/29/16 21:54 Dose: 0.5 mg Enoxaparin Sodium (Lovenox -) 60 mg SQ DAILY [facility] Last Admin: 10/29/16 09:42 Dose: 60 mg Sodium Chloride (1/2 Normal Saline) 1,000 mls @ 22 mls/hr IV ASDIR [facility] Last Admin: 10/29/16 15:01 Dose: 22 mls/hr Imipramine HCl (Tofranil -) 75 mg PO HS [facility] Last Admin: 10/29/16 21:54 Dose: 75 mg Imipramine HCl (Tofranil -) 25 mg PO DAILY [facility] Last Admin: 10/29/16 09:41 Dose: 25 mg Insulin Aspart (Novolog Vial Sliding Scale -) 1 vial SQ TIDAC [facility] PRN Reason: Protocol Last Admin: 10/29/16 17:19 Dose: 24 units Methylprednisolone Sodium Succinate (Solu-Medrol -) 40 mg IVPB Q12H [facility] Last Admin: 10/29/16 21:54 Dose: 40 mg - Objective Vital Signs: Vital Signs Temperature 97.8 F 10/29/16 21:59 Pulse Rate 97 H 10/29/16 21:59 Respiratory Rate 30 H 10/29/16 21:59 Blood Pressure 123/61 10/29/16 21:59 O2 Sat by Pulse Oximetry (%) 98 10/29/16 22:52 Constitutional: Yes: Calm Eyes: Yes: WNL HENT: Yes: WNL Neck: Yes: WNL Cardiovascular: Yes: Regular Rate and Rhythm Respiratory: Yes: Diminished Gastrointestinal: Yes: Soft ...Rectal Exam: Yes: Deferred Genitourinary: No: Anuria Musculoskeletal: Yes: Muscle Weakness Extremities: Yes: WNL Edema: No Peripheral Pulses WNL: Yes Integumentary: Yes: WNL Neurological: Yes: Alert, Oriented, Weakness Psychiatric: Yes: WNL Labs: CBC, BMP 10/29/16 06:30 10/28/16 06:35 INR, PTT INR 1.17 (0.82-1.09) H 10/25/16 16:50 Problem List - Problems (1) Diabetes Assessment/Plan: on Insulin. Prolbematic giving ACEI due to hyperkalemia. Decrease ASA to 81 mg daily, unless specific reason to keep at higher dose. Code(s): E11.9 - TYPE 2 DIABETES MELLITUS WITHOUT COMPLICATIONS Qualifiers: Diabetes mellitus macular edema: without macular edema Diabetes mellitus snf insulin use: with systems navigator use (2) Schizophrenia in remission Code(s): F20.9 - SCHIZOPHRENIA, UNSPECIFIED (3) Anxiety Code(s): F41.9 - ANXIETY DISORDER, UNSPECIFIED (4) Interstitial lung disease Assessment/Plan: F/u with gelatin powder mixer for O2, bronchodilators; solumedrol decreased. On BiPap. Code(s): J84.9 - INTERSTITIAL PULMONARY DISEASE, UNSPECIFIED (5) Hyperlipidemia Code(s): E78.5 - HYPERLIPIDEMIA, UNSPECIFIED (6) Aortic stenosis Assessment/Plan: ECHO: normal LVEF; moderately severe ; mild-moderate pulmonary HTN. Code(s): I35.0 - NONRHEUMATIC AORTIC (VALVE) STENOSIS (7) Sinus tachycardia Assessment/Plan: avoid dehydration (BUN 22-->41). pain managment. Respiratory treatments. Code(s): R00.0 - TACHYCARDIA, UNSPECIFIED
[2016-10-30] MEDS: INSULIN SLIDING SCALE (NOVOLOG) 1 VIAL SQ SCH ×3 (06:29→16:54)
[2016-10-30] MEDS: ALBUTEROL SO4 2.5/IPRATROPIUM 0.5 INH SOL 3 ML VIAL.NEB. NEB SCH ×4 (06:36→23:09)
[2016-10-30 07:37] LABS: MCH 32.5 pg (25.7-33.7); MCHC 34.3 g/dl (32.0-35.9); MEAN CELL VOLUME 94.6 fl (80-96); MEAN PLT VOLUME 8.3 fl (7.5-11.1); PLATELET COUNT 386 K/MM3 (134-434); RDW 13.4 % (11.9-15.9)
[2016-10-30 08:20] LABS: ANION GAP 10 (8-16); CALCIUM 8.6 mg/dL (8.5-10.1); CO2 29 mmol/L (21-32)
[2016-10-30 08:25] LABS: CPK 21 IU/L (39-308); CREATININE 0.9 mg/dL (0.7-1.3); TROPONIN I 0.05 ng/ml (0.00-0.05)
[2016-10-30] MEDS ORDERED: PT OWN MED DRAWER 7, Y5N ONE ×2 (08:41→21:25)
[2016-10-30 09:01] LABS: GLUCOSE,RANDOM 343 mg/dL (74-106)
[2016-10-30] MEDS: cefTRIAXone 1 GM/50 ML BAG (PRE-DOCKED) IVPB SCH (09:04)
[2016-10-30] MEDS: AZITHROMYCIN 250 MG TABLET PO SCH (09:04)
[2016-10-30] MEDS: clonazePAM 0.5 MG TABLET PO SCH ×2 (09:05→21:29)
[2016-10-30] MEDS: IMIPRAMINE HCL 25 MG TABLET PO SCH ×2 (09:05→21:29)
[2016-10-30] MEDS: ASPIRIN COATED 81 MG TABLET.EC PO SCH (09:05)
[2016-10-30] MEDS: methylPREDNISolone NA SUCC 40 MG/1 ML VIAL IVPB SCH ×2 (09:05→21:29)
[2016-10-30] MEDS: ENOXAPARIN NA (PORCINE) 60 MG/0.6 ML DISP.SYRIN SQ SCH (09:05)
[2016-10-30] MEDS: SODIUM CHLORIDE 0.45% 1,000 ML IV SCH (14:15)
--- NOTE | 2016-10-30 14:55 | PN ---
Progress Note, Physician History of Present Illness: pulmonary alert,feeling better,less dyspneic - Current Medication List Current Medications: Active Medications Albuterol/Ipratropium (Duoneb -) 1 amp NEB QIDR [facility] Last Admin: 10/30/16 11:30 Dose: 1 amp Aspirin (Ecotrin -) 162 mg PO DAILY [facility] Last Admin: 10/30/16 09:05 Dose: 162 mg Azithromycin (Zithromax -) 500 mg PO DAILY [facility] Last Admin: 10/30/16 09:04 Dose: 500 mg Ceftriaxone Sodium (Rocephin 1gm Ivpb (Pre-Docked)) 1 gm IVPB DAILY [facility] Last Admin: 10/30/16 09:04 Dose: 1 gm Clonazepam (Klonopin -) 0.5 mg PO BID [facility] Last Admin: 10/30/16 09:05 Dose: 0.5 mg Enoxaparin Sodium (Lovenox -) 60 mg SQ DAILY [facility] Last Admin: 10/30/16 09:05 Dose: 60 mg Sodium Chloride (1/2 Normal Saline) 1,000 mls @ 22 mls/hr IV ASDIR [facility] Last Admin: 10/29/16 15:01 Dose: 22 mls/hr Imipramine HCl (Tofranil -) 75 mg PO HS [facility] Last Admin: 10/29/16 21:54 Dose: 75 mg Imipramine HCl (Tofranil -) 25 mg PO DAILY [facility] Last Admin: 10/30/16 09:05 Dose: 25 mg Insulin Aspart (Novolog Vial Sliding Scale -) 1 vial SQ TIDAC [facility] PRN Reason: Protocol Last Admin: 10/30/16 12:04 Dose: 18 units Methylprednisolone Sodium Succinate (Solu-Medrol -) 40 mg IVPB Q12H [facility] Last Admin: 10/30/16 09:05 Dose: 40 mg - Objective Vital Signs: Vital Signs Temperature 98.6 F 10/30/16 09:00 Pulse Rate 108 H 10/30/16 09:00 Respiratory Rate 24 10/30/16 09:00 Blood Pressure 123/66 10/30/16 09:00 O2 Sat by Pulse Oximetry (%) 99 10/30/16 09:00 Constitutional: Yes: Well Nourished, Calm Eyes: Yes: WNL HENT: Yes: WNL Neck: Yes: WNL Cardiovascular: Yes: Regular Rate and Rhythm, S1, S2 Respiratory: Yes: Rales (bilateral crackles) Gastrointestinal: Yes: Normal Bowel Sounds, Soft Extremities: Yes: WNL Edema: No Labs: CBC, BMP 10/30/16 07:24 10/30/16 07:24 INR, PTT INR 1.17 (0.82-1.09) H 10/25/16 16:50 - ....Imaging Chest X-ray: Report Reviewed, Image Reviewed (less congestion) Assessment/Plan A/P Acute Hypoxic Respiratory Failure Interstitial Lung Disease r/o Pneumonia Lactic Acidosis resolved DM BACK - antibiotics - medrol q12h - inhaled bronchodilators - BiPAP as needed to assist in work of breathing - O2 to keep spO2 >90% - DVT prophylaxis DR WEST Problem List - Problems (1) Acute respiratory failure with hypoxia Code(s): J96.01 - ACUTE RESPIRATORY FAILURE WITH HYPOXIA (2) Interstitial lung disease Code(s): J84.9 - INTERSTITIAL PULMONARY DISEASE, UNSPECIFIED (3) Pneumonia Code(s): J18.9 - PNEUMONIA, UNSPECIFIED ORGANISM Qualifiers: Pneumonia type: due to unspecified organism Laterality: unspecified laterality Lung location: unspecified part of lung Qualified Code(s) : J18.9 - Pneumonia, unspecified organism (4) Lactic acidosis Code(s): E87.2 - ACIDOSIS (5) Diabetes Code(s): E11.9 - TYPE 2 DIABETES MELLITUS WITHOUT COMPLICATIONS Qualifiers: Diabetes mellitus macular edema: without macular edema Diabetes mellitus ad terminal makeup operator insulin use: with [facility] use
--- NOTE | 2016-10-30 17:48 | PN ---
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 The hx is provided by EMS and the patient's who provided the hx to EMS. The EMS states that the patient has been feeling sick from "yesterday to 1.5 weeks ago". is unsure what medications the patient takes. EMS was called and the patient was satting in the 60's on arrival, he was tachypneic and not talking. He was given 2 duoneb tx 's, 10 of decadron, and placed on a mag drip of 2g's. He improved to the 70's on duoneb. He was also placed on 7.5 PEEP CPAP. The patient was satting in the high 90's on arrival. He was transferred to our bed and had monitors placed. His EKG showed sinus tach with PVC's. CXR unchanged from previous CXR. He was admitted on 09/25 for a similar episode of LYLE. He was found to be in acute resp failure and had PNA. He was treated with IV levaquin and IV rocephin. He was discharged with home 02, cefuroxime, and prednisone. - Current Medication List Current Medications: Active Medications Albuterol/Ipratropium (Duoneb -) 1 amp NEB QIDR [facility] Last Admin: 10/30/16 11:30 Dose: 1 amp Azithromycin (Zithromax -) 500 mg PO DAILY [facility] Last Admin: 10/30/16 09:04 Dose: 500 mg Ceftriaxone Sodium (Rocephin 1gm Ivpb (Pre-Docked)) 1 gm IVPB DAILY [facility] Last Admin: 10/30/16 09:04 Dose: 1 gm Clonazepam (Klonopin -) 0.5 mg PO BID [facility] Last Admin: 10/30/16 09:05 Dose: 0.5 mg Enoxaparin Sodium (Lovenox -) 60 mg SQ DAILY [facility] Last Admin: 10/30/16 09:05 Dose: 60 mg Sodium Chloride (1/2 Normal Saline) 1,000 mls @ 22 mls/hr IV ASDIR [facility] Last Admin: 10/30/16 14:15 Dose: 22 mls/hr Imipramine HCl (Tofranil -) 75 mg PO HS [facility] Last Admin: 10/29/16 21:54 Dose: 75 mg Imipramine HCl (Tofranil -) 25 mg PO DAILY [facility] Last Admin: 10/30/16 09:05 Dose: 25 mg Insulin Aspart (Novolog Vial Sliding Scale -) 1 vial SQ TIDAC [facility] PRN Reason: Protocol Last Admin: 10/30/16 16:54 Dose: 26 units Methylprednisolone Sodium Succinate (Solu-Medrol -) 40 mg IVPB Q12H [facility] Last Admin: 10/30/16 09:05 Dose: 40 mg - Objective Vital Signs: Vital Signs Temperature 98.6 F 10/30/16 09:00 Pulse Rate 108 H 10/30/16 09:00 Respiratory Rate 24 10/30/16 09:00 Blood Pressure 123/66 10/30/16 09:00 O2 Sat by Pulse Oximetry (%) 99 10/30/16 09:00 Eyes: Yes: WNL, Conjunctiva Clear, EOM Intact HENT: Yes: WNL, Atraumatic, Normocephalic Neck: Yes: WNL, Supple, Trachea Midline Cardiovascular: Yes: WNL, Regular Rate and Rhythm, Murmur, S1, S2 Respiratory: Yes: WNL, Regular, CTA Bilaterally Gastrointestinal: Yes: WNL, Normal Bowel Sounds Genitourinary: Yes: WNL Musculoskeletal: Yes: WNL Extremities: Yes: WNL Edema: No Integumentary: Yes: WNL Neurological: Yes: WNL, Alert, Oriented ...Motor Strength: WNL Psychiatric: Yes: WNL Labs: CBC, BMP 10/30/16 07:24 10/30/16 07:24 INR, PTT INR 1.17 (0.82-1.09) H 10/25/16 16:50 Assessment/Plan (1) Diabetes Assessment/Plan: on Insulin. Prolbematic giving ACEI due to hyperkalemia. Decrease ASA to 81 mg daily, unless specific reason to keep at higher dose. Code(s): E11.9 - TYPE 2 DIABETES MELLITUS WITHOUT COMPLICATIONS Qualifiers: Diabetes mellitus macular edema: without macular edema Diabetes mellitus jail insulin use: with jail use (2) Schizophrenia in remission Code(s): F20.9 - SCHIZOPHRENIA, UNSPECIFIED (3) Anxiety Code(s): F41.9 - ANXIETY DISORDER, UNSPECIFIED (4) Interstitial lung disease Assessment/Plan: F/u with road production general manager for O2, bronchodilators; solumedrol decreased. On BiPap. Code(s): J84.9 - INTERSTITIAL PULMONARY DISEASE, UNSPECIFIED (5) Hyperlipidemia Code(s): E78.5 - HYPERLIPIDEMIA, UNSPECIFIED (6) Aortic stenosis Assessment/Plan: ECHO: normal LVEF; moderately severe ; mild-moderate pulmonary HTN. Code(s): I35.0 - NONRHEUMATIC AORTIC (VALVE) STENOSIS (7) Sinus tachycardia Assessment/Plan: avoid dehydration (BUN 22-->41). pain managment. Respiratory treatments. Code(s): R00.0 - TACHYCARDIA, UNSPECIFIED
--- NOTE | 2016-10-30 22:01 | PN ---
Progress Note, Physician History of Present Illness: Feels less dyspnoea. No cough or sputum. All day feels comfortable with nasal O2 alone. Generalized weakness and needs help to stand. - Current Medication List Current Medications: Active Medications Albuterol/Ipratropium (Duoneb -) 1 amp NEB QIDR [facility] Last Admin: 10/30/16 18:04 Dose: 1 amp Azithromycin (Zithromax -) 500 mg PO DAILY [facility] Last Admin: 10/30/16 09:04 Dose: 500 mg Ceftriaxone Sodium (Rocephin 1gm Ivpb (Pre-Docked)) 1 gm IVPB DAILY [facility] Last Admin: 10/30/16 09:04 Dose: 1 gm Clonazepam (Klonopin -) 0.5 mg PO BID [facility] Last Admin: 10/30/16 21:29 Dose: 0.5 mg Enoxaparin Sodium (Lovenox -) 60 mg SQ DAILY [facility] Last Admin: 10/30/16 09:05 Dose: 60 mg Sodium Chloride (1/2 Normal Saline) 1,000 mls @ 22 mls/hr IV ASDIR [facility] Last Admin: 10/30/16 14:15 Dose: 22 mls/hr Imipramine HCl (Tofranil -) 75 mg PO HS [facility] Last Admin: 10/30/16 21:29 Dose: 75 mg Imipramine HCl (Tofranil -) 25 mg PO DAILY [facility] Last Admin: 10/30/16 09:05 Dose: 25 mg Insulin Aspart (Novolog Vial Sliding Scale -) 1 vial SQ TIDAC [facility] PRN Reason: Protocol Last Admin: 10/30/16 16:54 Dose: 26 units Methylprednisolone Sodium Succinate (Solu-Medrol -) 40 mg IVPB Q12H [facility] Last Admin: 10/30/16 21:29 Dose: 40 mg - Objective Vital Signs: Vital Signs Temperature 97.9 F 10/30/16 18:00 Pulse Rate 94 H 10/30/16 18:00 Respiratory Rate 22 10/30/16 18:00 Blood Pressure 136/79 10/30/16 18:00 O2 Sat by Pulse Oximetry (%) 99 10/30/16 09:00 Constitutional: Yes: Calm, Moderate Distress Eyes: Yes: Conjunctiva Clear, EOM Intact HENT: Yes: WNL Neck: Yes: Supple Cardiovascular: Yes: Regular Rate and Rhythm, S1, S2 Respiratory: Yes: CTA Bilaterally Gastrointestinal: Yes: Normal Bowel Sounds, Soft Genitourinary: Yes: WNL Musculoskeletal: Yes: WNL Extremities: Yes: WNL Edema: No Peripheral Pulses WNL: Yes Integumentary: Yes: WNL Neurological: Yes: Alert, Oriented ...Motor Strength: WNL Psychiatric: Yes: Alert, Oriented Labs: CBC, BMP 10/30/16 07:24 10/30/16 07:24 INR, PTT INR 1.17 (0.82-1.09) H 10/25/16 16:50 Problem List - Problems (1) Acute respiratory failure with hypoxia Assessment/Plan: With IV steroids nasal O2 at all times has been much more comfortable. Code(s): J96.01 - ACUTE RESPIRATORY FAILURE WITH HYPOXIA (2) Diabetes Assessment/Plan: BGM are high due to IV steroids, being covered with Reg.Insulin Code(s): E11.9 - TYPE 2 DIABETES MELLITUS WITHOUT COMPLICATIONS Qualifiers: Diabetes mellitus macular edema: without macular edema Diabetes mellitus watermelon harvesting supervisor insulin use: with watermelon harvesting supervisor use (3) Schizophrenia in remission Code(s): F20.9 - SCHIZOPHRENIA, UNSPECIFIED (4) Interstitial lung disease Assessment/Plan: There is progression of the disease and will need continuous Prednisone and O2 Code(s): J84.9 - INTERSTITIAL PULMONARY DISEASE, UNSPECIFIED (5) Pneumonia Assessment/Plan: On IV antibiotics with Rocephin and Zithromax Code(s): J18.9 - PNEUMONIA, UNSPECIFIED ORGANISM Qualifiers: Pneumonia type: due to unspecified organism Laterality: unspecified laterality Lung location: unspecified part of lung Qualified Code(s) : J18.9 - Pneumonia, unspecified organism Assessment/Plan IMP: Acute resp failure due to Interstitial lung fibrosis Pneumonia Diabetes II on Insulin Hypertension Schizophrenia Ass: Continues to improve on IV steroids and bronchodilators. Steroids being tapered. Repeat chest XRAY in AM to assess basal infiltrates. Disposition: will need PT for ambulation and placement in SNF.
[2016-10-31] MEDS: INSULIN SLIDING SCALE (NOVOLOG) 1 VIAL SQ SCH ×3 (06:34→16:22)
[2016-10-31] MEDS ORDERED: PT OWN MED DRAWER 7, Y5N ONE ×3 (08:54→21:10)
[2016-10-31] MEDS: ENOXAPARIN NA (PORCINE) 60 MG/0.6 ML DISP.SYRIN SQ SCH (09:01)
[2016-10-31] MEDS: AZITHROMYCIN 250 MG TABLET PO SCH (09:01)
[2016-10-31] MEDS: clonazePAM 0.5 MG TABLET PO SCH ×2 (09:01→21:16)
[2016-10-31] MEDS: methylPREDNISolone NA SUCC 40 MG/1 ML VIAL IVPB SCH (09:02)
[2016-10-31] MEDS: cefTRIAXone 1 GM/50 ML BAG (PRE-DOCKED) IVPB SCH (09:02)
[2016-10-31] MEDS: IMIPRAMINE HCL 25 MG TABLET PO SCH ×2 (09:03→21:16)
--- NOTE | 2016-10-31 10:23 | PN ---
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 The hx is provided by EMS and the patient's who provided the hx to EMS. The EMS states that the patient has been feeling sick from "yesterday to 1.5 weeks ago". is unsure what medications the patient takes. EMS was called and the patient was satting in the 60's on arrival, he was tachypneic and not talking. He was given 2 duoneb tx 's, 10 of decadron, and placed on a mag drip of 2g's. He improved to the 70's on duoneb. He was also placed on 7.5 PEEP CPAP. The patient was satting in the high 90's on arrival. He was transferred to our bed and had monitors placed. His EKG showed sinus tach with PVC's. CXR unchanged from previous CXR. He was admitted on 09/25 for a similar episode of LYLE. He was found to be in acute resp failure and had PNA. He was treated with IV levaquin and IV rocephin. He was discharged with home 02, cefuroxime, and prednisone. - Current Medication List Current Medications: Active Medications Albuterol/Ipratropium (Duoneb -) 1 amp NEB QIDR [facility] Last Admin: 10/30/16 23:09 Dose: 1 amp Azithromycin (Zithromax -) 500 mg PO DAILY [facility] Last Admin: 10/31/16 09:01 Dose: 500 mg Ceftriaxone Sodium (Rocephin 1gm Ivpb (Pre-Docked)) 1 gm IVPB DAILY [facility] Last Admin: 10/31/16 09:02 Dose: 1 gm Clonazepam (Klonopin -) 0.5 mg PO BID [facility] Last Admin: 10/31/16 09:01 Dose: 0.5 mg Enoxaparin Sodium (Lovenox -) 60 mg SQ DAILY [facility] Last Admin: 10/31/16 09:01 Dose: 60 mg Sodium Chloride (1/2 Normal Saline) 1,000 mls @ 22 mls/hr IV ASDIR [facility] Last Admin: 10/30/16 14:15 Dose: 22 mls/hr Imipramine HCl (Tofranil -) 75 mg PO HS [facility] Last Admin: 10/30/16 21:29 Dose: 75 mg Imipramine HCl (Tofranil -) 25 mg PO DAILY [facility] Last Admin: 10/31/16 09:03 Dose: 25 mg Insulin Aspart (Novolog Vial Sliding Scale -) 1 vial SQ TIDAC [facility] PRN Reason: Protocol Last Admin: 10/31/16 06:34 Dose: 12 units Methylprednisolone Sodium Succinate (Solu-Medrol -) 40 mg IVPB Q12H [facility] Last Admin: 10/31/16 09:02 Dose: 40 mg - Objective Vital Signs: Vital Signs Temperature 98.5 F 10/31/16 09:00 Pulse Rate 111 H 10/31/16 09:00 Respiratory Rate 28 H 10/31/16 09:00 Blood Pressure 136/94 10/31/16 09:00 O2 Sat by Pulse Oximetry (%) 95 10/31/16 09:00 Eyes: Yes: WNL, Conjunctiva Clear, EOM Intact HENT: Yes: WNL, Atraumatic, Normocephalic Neck: Yes: WNL, Supple, Trachea Midline Cardiovascular: Yes: WNL, Regular Rate and Rhythm, Murmur, S1, S2 Respiratory: Yes: WNL, Regular, CTA Bilaterally, Diminished Gastrointestinal: Yes: WNL, Normal Bowel Sounds Genitourinary: Yes: WNL Musculoskeletal: Yes: WNL Extremities: Yes: WNL Edema: No Integumentary: Yes: WNL Neurological: Yes: WNL, Alert, Oriented ...Motor Strength: WNL Psychiatric: Yes: WNL Labs: CBC, BMP 10/30/16 07:24 10/30/16 07:24 INR, PTT INR 1.17 (0.82-1.09) H 10/25/16 16:50 Assessment/Plan (1) Diabetes Assessment/Plan: on Insulin. Prolbematic giving ACEI due to hyperkalemia. Decrease ASA to 81 mg daily, unless specific reason to keep at higher dose. Code(s): E11.9 - TYPE 2 DIABETES MELLITUS WITHOUT COMPLICATIONS Qualifiers: Diabetes mellitus macular edema: without macular edema Diabetes mellitus extermination inspector insulin use: with long-term use (2) Schizophrenia in remission Code(s): F20.9 - SCHIZOPHRENIA, UNSPECIFIED (3) Anxiety Code(s): F41.9 - ANXIETY DISORDER, UNSPECIFIED (4) Interstitial lung disease Assessment/Plan: CXR wnl F/u with blacksmith hammer operator for O2, bronchodilators; solumedrol decreased. On BiPap. Code(s): J84.9 - INTERSTITIAL PULMONARY DISEASE, UNSPECIFIED (5) Hyperlipidemia Code(s): E78.5 - HYPERLIPIDEMIA, UNSPECIFIED (6) Aortic stenosis Assessment/Plan: ECHO: normal LVEF; moderately severe ; mild-moderate pulmonary HTN. Code(s): I35.0 - NONRHEUMATIC AORTIC (VALVE) STENOSIS (7) Sinus tachycardia Assessment/Plan: avoid dehydration (BUN 22-->41). pain managment. Respiratory treatments. Code(s): R00.0 - TACHYCARDIA, UNSPECIFIED
[2016-10-31] MEDS: ALBUTEROL SO4 2.5/IPRATROPIUM 0.5 INH SOL 3 ML VIAL.NEB. NEB SCH ×2 (11:22→18:16)
[2016-10-31] MEDS ORDERED: INSULIN (NOVOLOG) ASPART 100 UNITS/ML 10ML VIAL ONE ×2 (12:15→16:20)
[2016-10-31] MEDS: PANTOPRAZOLE 40 MG TABLET (FP) PO SCH (12:34)
--- NOTE | 2016-10-31 13:13 | PN ---
Progress Note, Physician History of Present Illness: pulmonary feeling better ,alert,oob-chair,-resp distress - Current Medication List Current Medications: Active Medications Albuterol/Ipratropium (Duoneb -) 1 amp NEB QIDR [facility] Last Admin: 10/31/16 11:22 Dose: 1 amp Azithromycin (Zithromax -) 500 mg PO DAILY [facility] Last Admin: 10/31/16 09:01 Dose: 500 mg Clonazepam (Klonopin -) 0.5 mg PO BID [facility] Last Admin: 10/31/16 09:01 Dose: 0.5 mg Enoxaparin Sodium (Lovenox -) 60 mg SQ DAILY [facility] Last Admin: 10/31/16 09:01 Dose: 60 mg Sodium Chloride (1/2 Normal Saline) 1,000 mls @ 22 mls/hr IV ASDIR [facility] Last Admin: 10/30/16 14:15 Dose: 22 mls/hr Imipramine HCl (Tofranil -) 75 mg PO HS [facility] Last Admin: 10/30/16 21:29 Dose: 75 mg Imipramine HCl (Tofranil -) 25 mg PO DAILY [facility] Last Admin: 10/31/16 09:03 Dose: 25 mg Insulin Aspart (Novolog Vial Sliding Scale -) 1 vial SQ TIDAC [facility] PRN Reason: Protocol Last Admin: 10/31/16 12:11 Dose: 24 units Pantoprazole Sodium (Protonix -) 40 mg PO DAILY [facility] Last Admin: 10/31/16 12:34 Dose: 40 mg Prednisone (Deltasone -) 20 mg PO BID [facility] - Objective Vital Signs: Vital Signs Temperature 98.5 F 10/31/16 09:00 Pulse Rate 98 H 10/31/16 11:15 Respiratory Rate 28 H 10/31/16 09:00 Blood Pressure 136/94 10/31/16 09:00 O2 Sat by Pulse Oximetry (%) 95 10/31/16 12:59 Constitutional: Yes: Well Nourished, Calm Eyes: Yes: WNL HENT: Yes: WNL Neck: Yes: WNL Cardiovascular: Yes: Regular Rate and Rhythm, S1, S2 Respiratory: Yes: Rales (gutierrez crackles) Gastrointestinal: Yes: Normal Bowel Sounds, Soft Extremities: Yes: WNL Edema: Yes Labs: CBC, BMP 10/30/16 07:24 10/30/16 07:24 INR, PTT INR 1.17 (0.82-1.09) H 10/25/16 16:50 - ....Imaging Chest X-ray: Report Reviewed, Image Reviewed Assessment/Plan A/P Acute Hypoxic Respiratory Failure improving Interstitial Lung Disease r/o Pneumonia Lactic Acidosis resolved DM BACK - antibiotics - prednisone - inhaled bronchodilators - BiPAP as needed to assist in work of breathing - O2 to keep spO2 >90% - DVT prophylaxis - pulmonary rehab DR WEST Problem List - Problems (1) Acute respiratory failure with hypoxia Code(s): J96.01 - ACUTE RESPIRATORY FAILURE WITH HYPOXIA (2) Interstitial lung disease Code(s): J84.9 - INTERSTITIAL PULMONARY DISEASE, UNSPECIFIED (3) Pneumonia Code(s): J18.9 - PNEUMONIA, UNSPECIFIED ORGANISM Qualifiers: Pneumonia type: due to unspecified organism Laterality: unspecified laterality Lung location: unspecified part of lung Qualified Code(s) : J18.9 - Pneumonia, unspecified organism (4) Lactic acidosis Code(s): E87.2 - ACIDOSIS (5) Diabetes Code(s): E11.9 - TYPE 2 DIABETES MELLITUS WITHOUT COMPLICATIONS Qualifiers: Diabetes mellitus macular edema: without macular edema Diabetes mellitus care home insulin use: with director long term care use
[2016-10-31] MEDS ORDERED: SODIUM CHLORIDE 0.45% 1,000 ML IV SCH (15:51)
--- NOTE | 2016-10-31 15:58 | PN ---
Progress Note (short form) - Note Progress Note: @@@@@@@@@@@@@@@@@@@@@@@ cover for Dr Galdamez Current Medications Albuterol/Ipratropium (Duoneb -) 1 amp NEB QIDR [facility] Last Admin: 10/31/16 11:22 Dose: 1 amp Azithromycin (Zithromax -) 500 mg PO DAILY [facility] Last Admin: 10/31/16 09:01 Dose: 500 mg Clonazepam (Klonopin -) 0.5 mg PO BID [facility] Last Admin: 10/31/16 09:01 Dose: 0.5 mg Enoxaparin Sodium (Lovenox -) 60 mg SQ DAILY [facility] Last Admin: 10/31/16 09:01 Dose: 60 mg Sodium Chloride (1/2 Normal Saline) 1,000 mls @ 42 mls/hr IV ASDIR [facility] Imipramine HCl (Tofranil -) 75 mg PO HS [facility] Last Admin: 10/30/16 21:29 Dose: 75 mg Imipramine HCl (Tofranil -) 25 mg PO DAILY [facility] Last Admin: 10/31/16 09:03 Dose: 25 mg Insulin Aspart (Novolog Vial Sliding Scale -) 1 vial SQ TIDAC [facility] PRN Reason: Protocol Last Admin: 10/31/16 12:11 Dose: 24 units Pantoprazole Sodium (Protonix -) 40 mg PO DAILY [facility] Last Admin: 10/31/16 12:34 Dose: 40 mg Prednisone (Deltasone -) 20 mg PO BID [facility] Laboratory Results - last 24 hr 10/30/16 10/31/16 10/31/16 16:20 06:00 11:03 POC Glucometer 390 228 325 Vital Signs Temperature 98.5 F 10/31/16 09:00 Pulse Rate 98 H 10/31/16 11:15 Respiratory Rate 28 H 10/31/16 09:00 Blood Pressure 136/94 10/31/16 09:00 O2 Sat by Pulse Oximetry (%) 95 10/31/16 12:59 CC: SOB on exertion as before ``````````````````````````````` skin--no acute rashes appreciated eyes--midline lungs--bilat BS heard; distant heart--RRR abd--soft, NT ext--trace edema of LE's; stasis changes neuro--awake; calm & responsive; able to answer basic questions; no gross focal deficits ````````````````````````````````````````````` Summ > Acute resp failure--w/ Interstityial lung dz, Sats okay on NC at rest, but gets dyspneic on exertion; CXR still abNL;will get CT of chest w/o contrast > Azotemia--still elevated; will increase IVF to 42/Hr > High Potassium--mild; from 10/30; will recheck > Tachycardia-- sinus; made worse by TCA; consider cutting back if possible > High glucose--?steroid induced; on Coverage > High WBC--likely steroid induced; steroids being tapered > affective Dz--on TCA & Clonazapam ``````````````````````````````````` Dr Pickard for Dr Galdamez
[2016-10-31] MEDS: SODIUM CHLORIDE 0.45% 1,000 ML IV SCH (18:52)
[2016-10-31] MEDS: predniSONE 20 MG TABLET (UD) PO SCH (21:18)
[2016-11-01] MEDS: ALBUTEROL SO4 2.5/IPRATROPIUM 0.5 INH SOL 3 ML VIAL.NEB. NEB SCH ×3 (00:06→11:40)
[2016-11-01] MEDS: INSULIN SLIDING SCALE (NOVOLOG) 1 VIAL SQ SCH ×2 (07:58→11:35)
[2016-11-01] MEDS ORDERED: INSULIN (NOVOLOG) ASPART 100 UNITS/ML 10ML VIAL ONE ×2 (08:01→11:34)
[2016-11-01] MEDS ORDERED: PT OWN MED DRAWER 7, Y5N ONE (08:56)
[2016-11-01] MEDS: predniSONE 20 MG TABLET (UD) PO SCH (09:03)
[2016-11-01] MEDS: ENOXAPARIN NA (PORCINE) 60 MG/0.6 ML DISP.SYRIN SQ SCH (09:03)
[2016-11-01] MEDS: IMIPRAMINE HCL 25 MG TABLET PO SCH (09:03)
[2016-11-01] MEDS: clonazePAM 0.5 MG TABLET PO SCH (09:03)
[2016-11-01] MEDS: PANTOPRAZOLE 40 MG TABLET (FP) PO SCH (09:03)
[2016-11-01] MEDS: AZITHROMYCIN 250 MG TABLET PO SCH (09:04)
--- NOTE | 2016-11-01 09:57 | PN ---
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 The hx is provided by EMS and the patient's who provided the hx to EMS. The EMS states that the patient has been feeling sick from "yesterday to 1.5 weeks ago". is unsure what medications the patient takes. EMS was called and the patient was satting in the 60's on arrival, he was tachypneic and not talking. He was given 2 duoneb tx 's, 10 of decadron, and placed on a mag drip of 2g's. He improved to the 70's on duoneb. He was also placed on 7.5 PEEP CPAP. The patient was satting in the high 90's on arrival. He was transferred to our bed and had monitors placed. His EKG showed sinus tach with PVC's. CXR unchanged from previous CXR. He was admitted on 09/25 for a similar episode of LYLE. He was found to be in acute resp failure and had PNA. He was treated with IV levaquin and IV rocephin. He was discharged with home 02, cefuroxime, and prednisone. - Current Medication List Current Medications: Active Medications Albuterol/Ipratropium (Duoneb -) 1 amp NEB QIDR [facility] Last Admin: 11/01/16 06:28 Dose: 1 amp Azithromycin (Zithromax -) 500 mg PO DAILY [facility] Last Admin: 11/01/16 09:04 Dose: 500 mg Clonazepam (Klonopin -) 0.5 mg PO BID [facility] Last Admin: 11/01/16 09:03 Dose: 0.5 mg Enoxaparin Sodium (Lovenox -) 60 mg SQ DAILY [facility] Last Admin: 11/01/16 09:03 Dose: 60 mg Sodium Chloride (1/2 Normal Saline) 1,000 mls @ 42 mls/hr IV ASDIR [facility] Last Admin: 10/31/16 16:22 Dose: 42 mls/hr Imipramine HCl (Tofranil -) 75 mg PO HS [facility] Last Admin: 10/31/16 21:16 Dose: 75 mg Imipramine HCl (Tofranil -) 25 mg PO DAILY [facility] Last Admin: 11/01/16 09:03 Dose: 25 mg Insulin Aspart (Novolog Vial Sliding Scale -) 1 vial SQ TIDAC [facility] PRN Reason: Protocol Last Admin: 11/01/16 07:58 Dose: 18 units Pantoprazole Sodium (Protonix -) 40 mg PO DAILY [facility] Last Admin: 11/01/16 09:03 Dose: 40 mg Prednisone (Deltasone -) 20 mg PO BID [facility] Last Admin: 11/01/16 09:03 Dose: 20 mg - Objective Vital Signs: Vital Signs Temperature 98.8 F 10/31/16 22:00 Pulse Rate 115 H 10/31/16 22:00 Respiratory Rate 26 H 10/31/16 22:00 Blood Pressure 128/74 10/31/16 22:00 O2 Sat by Pulse Oximetry (%) 95 10/31/16 22:00 Eyes: Yes: WNL, Conjunctiva Clear, EOM Intact HENT: Yes: WNL, Atraumatic, Normocephalic Neck: Yes: WNL, Supple, Trachea Midline Cardiovascular: Yes: WNL, Regular Rate and Rhythm Respiratory: Yes: WNL, Regular, CTA Bilaterally Gastrointestinal: Yes: WNL, Normal Bowel Sounds Genitourinary: Yes: WNL Musculoskeletal: Yes: WNL Extremities: Yes: WNL Edema: No Integumentary: Yes: WNL Neurological: Yes: WNL, Alert, Oriented ...Motor Strength: WNL Psychiatric: Yes: WNL Labs: INR, PTT INR 1.17 (0.82-1.09) H 10/25/16 16:50 Assessment/Plan (1) Diabetes Assessment/Plan: on Insulin. Prolbematic giving ACEI due to hyperkalemia. Decrease ASA to 81 mg daily, unless specific reason to keep at higher dose. 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 On BiPap. Code(s): J84.9 - INTERSTITIAL PULMONARY DISEASE, UNSPECIFIED (5) Hyperlipidemia Code(s): E78.5 - HYPERLIPIDEMIA, UNSPECIFIED (6) Aortic stenosis Assessment/Plan: ECHO: normal LVEF; moderately severe ; mild-moderate pulmonary HTN. Code(s): I35.0 - NONRHEUMATIC AORTIC (VALVE) STENOSIS (7) Sinus tachycardia Assessment/Plan: avoid dehydration (BUN 22-->41). pain managment. Respiratory treatments. Code(s): R00.0 - TACHYCARDIA, UNSPECIFIED
[2016-11-01 11:36] LABS: MCH 31.7 pg (25.7-33.7); MCHC 33.3 g/dl (32.0-35.9); MEAN CELL VOLUME 95.1 fl (80-96); MEAN PLT VOLUME 8.5 fl (7.5-11.1); PLATELET COUNT 331 K/MM3 (134-434); RDW 13.6 % (11.9-15.9); WHITE BLOOD COUNT 21.1 K/mm3 (4.0-10.0)
[2016-11-01 12:15] LABS: PLATELET ESTIMATE ADEQUATE (NORMAL); TOTAL CELLS COUNTED 100
--- NOTE | 2016-11-01 13:01 | PN ---
Progress Note (short form) - Note Progress Note: PULMONARY Breathing continues to improve. Mild nonproductive cough. No fevers recorded. Last Vital Signs Temp Pulse Resp BP Pulse Ox 98.4 F 111 H 32 H 119/73 93 L 11/01/16 12:12 11/01/16 10:00 11/01/16 10:00 11/01/16 10:00 11/01/16 08:12 Gen: less tachypneic Heart: RRR Lung: bibasilar rales Abd: soft, nontender Ext: no edema CBC, BMP 11/01/16 05:25 Active Medications Albuterol/Ipratropium (Duoneb -) 1 amp NEB QIDR [facility] Last Admin: 11/01/16 06:28 Dose: 1 amp Azithromycin (Zithromax -) 500 mg PO DAILY [facility] Last Admin: 11/01/16 09:04 Dose: 500 mg Clonazepam (Klonopin -) 0.5 mg PO BID [facility] Last Admin: 11/01/16 09:03 Dose: 0.5 mg Enoxaparin Sodium (Lovenox -) 60 mg SQ DAILY [facility] Last Admin: 11/01/16 09:03 Dose: 60 mg Sodium Chloride (1/2 Normal Saline) 1,000 mls @ 42 mls/hr IV ASDIR [facility] Last Admin: 10/31/16 16:22 Dose: 42 mls/hr Imipramine HCl (Tofranil -) 75 mg PO HS [facility] Last Admin: 10/31/16 21:16 Dose: 75 mg Imipramine HCl (Tofranil -) 25 mg PO DAILY [facility] Last Admin: 11/01/16 09:03 Dose: 25 mg Insulin Aspart (Novolog Vial Sliding Scale -) 1 vial SQ TIDAC [facility] PRN Reason: Protocol Last Admin: 11/01/16 11:35 Dose: 18 units Pantoprazole Sodium (Protonix -) 40 mg PO DAILY [facility] Last Admin: 11/01/16 09:03 Dose: 40 mg Prednisone (Deltasone -) 20 mg PO BID [facility] Last Admin: 11/01/16 09:03 Dose: 20 mg A/P Acute Hypoxic Respiratory Failure Interstitial Lung Disease r/o Pneumonia Lactic Acidosis resolved DM BACK - complete antibiotics - prednisone taper - inhaled bronchodilators - O2 to keep spO2 >90% - DVT prophylaxis Problem List - Problems (1) Acute respiratory failure with hypoxia Code(s): Geeta96.01 - ACUTE RESPIRATORY FAILURE WITH HYPOXIA (2) Interstitial lung disease Code(s): J84.9 - INTERSTITIAL PULMONARY DISEASE, UNSPECIFIED (3) Pneumonia Code(s): J18.9 - PNEUMONIA, UNSPECIFIED ORGANISM Qualifiers: Pneumonia type: due to unspecified organism Laterality: unspecified laterality Lung location: unspecified part of lung Qualified Code(s) : J18.9 - Pneumonia, unspecified organism (4) Lactic acidosis Code(s): E87.2 - ACIDOSIS (5) Diabetes Code(s): E11.9 - TYPE 2 DIABETES MELLITUS WITHOUT COMPLICATIONS Qualifiers: Diabetes mellitus macular edema: without macular edema Diabetes mellitus fci insulin use: with fci use
--- NOTE | 2016-11-01 13:22 | DS ---
Physical Examination Vital Signs: Vital Signs Temperature 98.4 F 11/01/16 12:12 Pulse Rate 64 11/01/16 11:40 Respiratory Rate 32 H 11/01/16 10:00 Blood Pressure 119/73 11/01/16 10:00 O2 Sat by Pulse Oximetry (%) 90 L 11/01/16 11:40 Findings/Remarks: Known case of interstitial pulmonary fibrosis who was admitted with resp. failure and was treated with IV steroids, bronchodilators and antibiotics and has been stable Constitutional: Yes: Well Nourished, Calm, Moderate Distress Eyes: Yes: WNL HENT: Yes: WNL Neck: Yes: Supple Cardiovascular: Yes: Regular Rate and Rhythm, S1, S2 Respiratory: Yes: On Nasal O2, Rales, SOB Gastrointestinal: Yes: Soft Renal/: Yes: WNL Musculoskeletal: Yes: WNL Extremities: Yes: WNL Edema: No Peripheral Pulses WNL: Yes Integumentary: Yes: WNL Neurological: Yes: Alert, Oriented ...Motor Strength: WNL Psychiatric: Yes: Alert, Oriented Labs: CBC, BMP 11/01/16 05:25 Discharge Summary Reason For Visit: ACUTE RESPITORY FAILURE WITH HYPOXIA Current Active Problems Acute respiratory failure with hypoxia (Acute) Diabetes Hyperlipidemia Obesity Schizophrenia in remission Sinus tachycardia (Acute) Hospital Course: Known case of interstitial pulmonary fibrosis who was admitted with acute resp.failure and was treated with IV staroids, IV Rocephin and Zithromax PO and also bronchodilators. His chest Xray still shows infiltrates bilaterally but has been afebrile without any expectoration. He is a known diabetic type II on sliding scale Insulin as his BGM has been elevated due to steroids. In the past he has had multiple admissions for septicemia due to ascending cholangitis due to Common Bile duct being anastomosed to the jejunum as it was lacerated during cholecystectomy. He has responded well to treatment with Levaquin and Rocephin. He is now on Prednisone 40mg, bronchodilators'. His disease has definitely progressed. He is schizophrenic in remission with also severe anxiety disorder without any agitation.He is very well controlled with Tofranil 75mg HS and 25 mg in AM and Clonazepam 0.5mg BID Condition: Stable - Instructions Disposition: TRANSFER ACUTE CARE/OTHER HOSP - Home Medications Comprehensive Discharge Medication List: Ambulatory Orders Clonazepam [KlonoPIN] 0.5 mg PO BID 10/25/16 Imipramine HCl [Tofranil -] 75 mg PO HS 10/25/16 Albuterol 2.5/Ipratropium 0.5 [Duoneb -] 1 amp NEB QIDR amp 11/01/16 Clonazepam [Klonopin -] 0.5 mg PO BID #60 tablet MDD 2 11/01/16 Insulin Sliding Scale [Novolog Vial Sliding Scale -] 1 vial SQ TIDAC units Prednisone [Deltasone -] 20 mg PO BID tablet 11/01/16
[2016-11-01 14:51] VITALS: BP 121/85; PULSE 107; TEMP 97.9
[2016-11-01 16:23] LABS: ANION GAP 9 (8-16); CO2 28 mmol/L (21-32)
[2016-11-01 16:49] LABS: GLUCOSE,RANDOM 331 mg/dL (74-106)
== END 2016-11-01 15:12 | DRG 193 ==
LOC: JER 16:23 → JERBED 18:13 → J4S 21:47
PROVIDERS: ADMIT Internal Medicine Hematology & Oncology; ATTEND Internal Medicine Hematology & Oncology
PROC: 5A09557 Assistance with Respiratory Ventilation, Greater than 96 Consecutive Hours, Continuous Positive Airway Pressure (ICD-10-PCS; principal; 2016-10-25)
PROC: 3E0F7GC Introduction of Other Therapeutic Substance into Respiratory Tract, Via Natural or Artificial Opening (ICD-10-PCS; 2016-10-25)
PROC: 5A0 Extracorporeal or Systemic Assistance and Performance, Physiological Systems, Assistance (ICD-10-PCS; 2016-10-25)
DX: J18.9 Pneumonia, unspecified organism (principal); J96.21 Acute and chronic respiratory failure with hypoxia; E87.2 Acidosis; J84.10 Pulmonary fibrosis, unspecified; Z99.81 Dependence on supplemental oxygen; Z99.89 Dependence on other enabling machines and devices; I10 Essential (primary) hypertension; E11.9 Type 2 diabetes mellitus without complications; Z79.4 Long term (current) use of insulin; Z79.84 Long term (current) use of oral hypoglycemic drugs; I27.2 Other secondary pulmonary hypertension; E66.9 Obesity, unspecified; Z68.30 Body mass index [BMI] 30.0-30.9, adult; F41.0 Panic disorder [episodic paroxysmal anxiety]; Z87.891 Personal history of nicotine dependence; E03.9 Hypothyroidism, unspecified; F20.9 Schizophrenia, unspecified; F32.9 Major depressive disorder, single episode, unspecified; I35.0 Nonrheumatic aortic (valve) stenosis; K75.81 Nonalcoholic steatohepatitis (NASH); K74.60 Unspecified cirrhosis of liver; R00.0 Tachycardia, unspecified
CPT/HCPCS: 36415; 36600; 71010-TC; 71250-TC; 80048; 80053; 80061; 81003; 82375; 82803; 83036; 83050; 83605; 83721; 83735; 84443; 84484; 85025; 85027; 85610; 85730; 87040; 87086; 87899; 93005; 93010; 93306-TC; 94640; 94660; 97116-GP; 97161-GP; 99283-25